=== PATIENT | female | born 1945 | race Caucasian/White ===

== ENCOUNTER → 2017-12-27 12:01 | Outpatient (CLI) | payer MEDICARE, SELFPAY ==
[2017-12-27 13:24] LABS: Erythrocyte Sedimentation Rate 14 mm/hr (0-30)
[2017-12-27 13:46] LABS: Uric Acid 8.6 mg/dL (2.6-6.0)
== END ==
PROVIDERS: Family Provider Family Medicine; PCP Family Medicine
DX: M1A.00X1 Idiopathic chronic gout, unspecified site, with tophus (tophi) (principal); M25.473 Effusion, unspecified ankle; M25.579 Pain in unspecified ankle and joints of unspecified foot; E79.0 Hyperuricemia without signs of inflammatory arthritis and tophaceous disease
CPT/HCPCS: 36415; 84550; 85652

== ENCOUNTER → 2018-05-11 11:48 | Outpatient (CLI) | payer MEDICARE, SELFPAY ==
[2016-06-16 04:09] VITALS: BMI 39.9
[2018-05-11 12:44] LABS: Erythrocyte Sedimentation Rate 31 mm/hr (0-30)
[2018-05-11 13:11] LABS: Uric Acid 6.8 mg/dL (2.6-6.0)
[2018-05-15 12:30] LABS: G6PD Quant Test 301 (146-376)
== END ==
LOC: LAB 11:54
PROVIDERS: Family Provider Family Medicine; PCP Family Medicine
DX: M10.9 Gout, unspecified (principal)
CPT/HCPCS: 36415; 82955; 84550; 85652

== ENCOUNTER 2018-09-02 09:31 | Outpatient (RCR) | payer MEDICARE, SELFPAY ==
[2016-06-16 04:09] VITALS: BMI 39.9
[2018-09-02 11:54] LABS: Uric Acid < 0.2 mg/dL (2.6-6.0)
== END 2018-09-02 10:00 | disposition home or self-care (01) ==
LOC: LAB 09:31
PROVIDERS: Family Provider Family Medicine; PCP Family Medicine
DX: M10.9 Gout, unspecified (principal)
CPT/HCPCS: 36415; 84550

== ENCOUNTER 2018-10-14 11:44 | Outpatient (RCR) | payer MEDICARE, SELFPAY ==
[2018-09-16 09:37] LABS: Uric Acid < 0.2 mg/dL (2.6-6.0)
[2018-10-01 12:43] LABS: Uric Acid < 0.2 mg/dL (2.6-6.0)
[2018-10-14 12:57] LABS: Uric Acid < 0.2 mg/dL (2.6-6.0)
== END 2018-10-16 16:00 | disposition home or self-care (01) ==
LOC: LAB 11:44
PROVIDERS: Family Provider Family Medicine; PCP Family Medicine
DX: M10.9 Gout, unspecified (principal)
CPT/HCPCS: 36415; 84550

== ENCOUNTER 2018-11-11 09:08 | Outpatient (RCR) | payer MEDICARE, SELFPAY ==
[2016-06-16 04:09] VITALS: BMI 39.9
[2018-10-28 13:11] LABS: Uric Acid < 0.2 mg/dL (2.6-6.0)
[2018-11-11 10:02] LABS: Uric Acid < 0.2 mg/dL (2.6-6.0)
== END 2018-11-11 10:00 | disposition home or self-care (01) ==
LOC: LAB 09:08
PROVIDERS: Family Provider Family Medicine; PCP Family Medicine
DX: M10.9 Gout, unspecified (principal)
CPT/HCPCS: 36415; 84550

== ENCOUNTER 2018-12-09 11:54 | Outpatient (RCR) | payer MEDICARE, SELFPAY ==
[2016-06-16 04:09] VITALS: BMI 39.9
[2018-11-25 12:42] LABS: Vitamin D,25 Hydroxy 21.2 ng/mL (29.95-100.01)
[2018-11-25 13:04] LABS: Uric Acid < 0.2 mg/dL (2.6-6.0)
[2018-12-09 13:18] LABS: Uric Acid < 0.2 mg/dL (2.6-6.0)
== END 2018-12-09 13:00 | disposition home or self-care (01) ==
LOC: LAB 11:54
PROVIDERS: Family Provider Family Medicine; PCP Family Medicine
DX: M10.9 Gout, unspecified (principal); E55.9 Vitamin D deficiency, unspecified
CPT/HCPCS: 36415; 82306; 84550

== ENCOUNTER 2019-01-06 09:41 | Outpatient (RCR) | payer MEDICARE, SELFPAY ==
[2016-06-16 04:09] VITALS: BMI 39.9
[2018-12-23 13:23] LABS: Uric Acid < 0.2 mg/dL (2.6-6.0)
[2019-01-06 10:56] LABS: Uric Acid < 0.2 mg/dL (2.6-6.0)
== END 2019-01-06 18:00 | disposition home or self-care (01) ==
LOC: LAB 09:41
PROVIDERS: Family Provider Family Medicine; PCP Family Medicine
DX: M10.9 Gout, unspecified (principal)
CPT/HCPCS: 36415; 84550

== ENCOUNTER 2019-01-20 15:06 | Outpatient (RCR) | payer MEDICARE, SELFPAY ==
[2016-06-16 04:09] VITALS: BMI 39.9
[2019-01-20 16:35] LABS: Uric Acid < 0.2 mg/dL (2.6-6.0)
== END 2019-01-20 18:00 | disposition home or self-care (01) ==
LOC: LAB 15:06
PROVIDERS: Family Provider Family Medicine; PCP Family Medicine
DX: M10.9 Gout, unspecified (principal)
CPT/HCPCS: 36415; 84550

== ENCOUNTER 2020-06-08 14:04 | Observation (INO) | payer MEDICARE, SELFPAY ==
[2020-06-08] VITALS (8 sets, daily range): BP systolic 147–188; BP diastolic 84–105; PULSE 86–123; RESP 14–24; TEMP 36.6–37.1; O2SAT 97–98; BMI 36.1; BMI 38.2; BMI 38.3
--- NOTE | 2020-06-08 14:23 | CT_ITS ---
STUDY: CT BRAIN WITHOUT CONTRAST REASON FOR EXAM: Female, 75 years old. Dizziness RADIATION DOSAGE (If Supplied By Facility): CTDIvol = ( 38.43 ) mGy, DLP = ( 741.51 ) mGycm TECHNIQUE: Transaxial CT imaging of the brain was performed without administration of intravenous contrast material. Individualized dose optimization techniques were used for this CT. COMPARISON: None. FINDINGS: There is no acute bleed or infarct. There are chronic ischemic and atrophic changes. The ventricles are normal in configuration. There is no hydrocephalus. There is opacification of the right maxillary sinus. The visualized paranasal sinuses are otherwise clear. The mastoid air cells are well aerated. There is no skull fracture. CT/Brain/Head without Contrast IMPRESSION: No acute intracranial abnormality. Chronic ischemic and atrophic changes. Opacification of the right maxillary sinus. Electronically Signed: Tyler Kraus MD at 15:15 EDT Tel , Service support ,
--- NOTE | 2020-06-08 14:23 | EKG12_ITS ---
Test Reason : DIZZINESS Blood Pressure : / mmHG Vent. Rate : 107 BPM Atrial Rate : 107 BPM P-R Int : 160 ms QRS Dur : 058 ms QT Int : 338 ms P-R-T Axes : 037 -09 074 degrees QTc Int : 451 ms Sinus tachycardia Septal infarct , age undetermined Abnormal ECG Confirmed by MICHELE LOYOLA, ROYA ([id number]), movie editor KATIE SOLIS ([id number]) on 06/09/2020 1:55:10 PM Referred By: Confirmed By:ROYA BAUTISTA MD
--- NOTE | 2020-06-08 14:24 | ED.DCSUM_ITS ---
- ER Visit Summary Date of Service: 06/08/20 Chief Complaint: Lightheadedness History of Present Illness: The patient is a 75 F presenting with lightheadedness. Patient states this started 2 days ago. She denies syncope. Denies vertigo. States she has had a mild headache. She denies recent fall. She denies chest pain or shortness of breath. She went to urgent care today and had elevated blood sugar and elevated heart rate. She was sent to the ED for further evaluation. She states she had a negative Covid test 2 weeks ago. She has not received her Covid vaccine. Denies other complaints. Physical Examination: Vitals are stable. Patient is afebrile. Alert no acute distress. HEENT exam is unremarkable. Neck is supple. Lungs are clear and equal bilaterally. Heart is regular rate and rhythm. Abdomen is soft nontender nondistended. Extremities are unremarkable. Skin is warm and dry. No focal neurologic deficit. NIH 0 Remainder of exam is unremarkable. Emergency Department Course and Treatment: EKG shows sinus tachycardia rate of 107 with no acute ischemic changes. CBC shows white count 11.8. Chemistries show glucose 274, BUN 22, creatinine 1.58. Troponin 0.046. D-dimer 0.52. Chest x-ray read by myself and radiology shows no acute process. CTA chest was obtained due to elevated D-dimer and shows nondiagnostic evaluation for pulmonary embolus as the contrast bolus is primarily within the aorta. No thoracic aortic aneurysm or dissection. Clear lungs. Coronary artery disease. CT head shows no acute process. Orthostatic vitals negative. On reevaluation, patient is resting comfortably. Discussed with hospitalist for observation. Disposition: Observation Impression: Near syncope This note was generated with [employer] dictation software. It may contain incorrect words, spelling, and punctuation that were not noted in review of the chart prior to signing ED Disposition - Plan for ED Patient: Referrals: Saida Leal DO [Primary Care Provider] -
[2020-06-08 14:39] LABS: Absolute Lymphocyte Count 1.51 X10^3/uL (0.83-4.51); Absolute Neutrophil Count 9.6 X10^3/uL (2.0-7.7); Basophil# 0.05 X10^3/uL; Basophil% 0.4 % (0-1); Eosinophil# 0.17 X10^3/uL; Eosinophils% 1.4 % (0-5); Hematocrit 41.6 % (37-47); Hemoglobin 13.3 g/dL (12.0-15.0); Lymphocyte # 1.51 X10^3/ul (4.0); Lymphocyte % 12.8 % (19-41); Mean Corpuscular Hgb 30.2 pg (27.0-32.0); Mean Corpuscular Volume 94.3 fL (81-99); Mean Platelet Vol. 9.9 fl (6.2-12.0); Monocyte# 0.49 X10^3/uL; Monocyte% 4.1 % (0-10); NRBC Flagged by Analyzer 0 % (0-5); Neutrophil # 9.57 X10^3/uL (2.7-7.7); Neutrophil % 80.9 % (47-70); Platelet Count 224 K/mm3 (150-450); RBC Distribution Width CV 12.7 % (11.6-14.6); RBC Distribution Width SD 43.8 fl (35.1-43.9); Red Blood Count 4.41 M/mm3 (4.2-5.4); White Blood Count 11.8 K/mm3 (4.4-11.0)
[2020-06-08 15:01] LABS: AST(SGOT) 27 U/L (15-37); Alanine Aminotransfer ALT/SGPT 40 U/L (13-56); Albumin, Serum 3.6 g/dL (3.2-5.0); Alkaline Phosphatase 82 U/L (45-117); Anion Gap 11 (5-15); BUN 22 mg/dL (7-18); BUN/Creat Ratio 13.9 RATIO (10-20); Calcium,Total 10.4 mg/dL (8.5-10.1); Chloride 103 mmol/L (98-107); Creatinine, Serum 1.58 mg/dL (0.55-1.02); EST Glomerular Filtration Rate 34 mL/min (>60); Est Glom Filt Rate - Afr Amer 41 mL/min (>60); Estimated Creatinine Clearance 25.08 ml/min; Globulin 3.7 g/dL (2.2-4.2); Glucose 274 mg/dL (74-106); Potassium 4.2 mmol/L (3.5-5.1); Protein, Total 7.3 g/dL (6.4-8.2); Sodium Level 139 mmol/L (136-145)
[2020-06-08 15:04] LABS: D-Dimer Quantitative (DVT/PE) 0.52 FEU/ug/m (0.27-0.49)
--- NOTE | 2020-06-08 15:05 | RAD_ITS ---
STUDY: X-RAY CHEST REASON FOR EXAM: Female, 75 years old. Shortness of breath TECHNIQUE: Frontal view of the chest COMPARISON: None. FINDINGS: There is elevation of the right hemidiaphragm. The lungs are clear. There are no pleural effusions. There is no pneumothorax. The heart is normal in size. The visualized osseous structures are within normal limits. RAD/Chest 1 View (Portable) IMPRESSION: No acute thoracic pathology. Electronically Signed: Tyler Kraus MD at 15:20 EDT Tel , Service support ,
--- NOTE | 2020-06-08 15:07 | CT_ITS ---
STUDY: CTA CHEST REASON FOR EXAM: Female, 75 years old. elevated d dimer RADIATION DOSAGE (If Supplied By Facility): CTDIvol = ( 12.66 ) mGy, DLP = ( 489.49 ) mGycm TECHNIQUE: The examination was performed with the intravenous administration of IV 100mL Isovue-370. Post-processing of the angiographic images was performed, with multiplanar reformation and 3D reconstruction. Individualized dose optimization techniques were used for this CT. COMPARISON: None. FINDINGS: Evaluation for pulmonary embolus is nondiagnostic of the contrast bolus is primarily within the aorta. There is no thoracic aortic aneurysm or dissection. There are no pulmonary infiltrates or pleural effusions. There is no pneumothorax. The heart and pericardium are within normal limits. There are coronary artery calcifications noted. There is no thoracic lymphadenopathy. Images through the upper abdomen demonstrate cholecystectomy clips. There are no destructive osseous lesions. CT/CTA Chest W/WO Contrast IMPRESSION: Nondiagnostic evaluation for pulmonary embolus as the contrast bolus is primarily within the aorta. No thoracic aortic aneurysm or dissection. Clear lungs. Coronary artery disease. Electronically Signed: Tyler Kraus MD at 15:52 EDT Tel , Service support ,
--- NOTE | 2020-06-08 17:09 | PCM.HP.STD ---
<Yifan Oshea - Last Filed: 06/08/20 17:52> Problem List (1) Headache Status: Acute (2) Lightheadedness Status: Acute (3) Dizziness Status: Acute History of Present Illness Date of Admission: 06/08/20 Chief Complaint: Headhache, Lightheadness, Dizziness Mrs. Urban is a 75-year-old female who presented to the emergency department at [facility] for a 2-day history of headache, lightheadedness and dizziness. Patient reports that only precipitant to her symptoms seem to be a positional change from flat to standing. Patient denies recent sickness or vaccination. Patient denies chest pain, shortness of breath, syncope, confusion, weakness, numbness, vision changes, fall. Orthostatic vitals in the ED were negative. Of note D-dimer was elevated in the emergency department. CT?A of the chest demonstrated no pulmonary embolus or evidence of aortic dissection. Brain CT demonstrated no evidence of acute ischemia or hemorrhage. Mild leukocytosis at 11.8. Glucose 274. Creatinine elevated at 1.58. First troponin elevated at 0.046. EKG shows sinus tachycardia at a rate of 107 with no acute ischemic changes. Patient to be admitted for near syncope. Past Medical History Allergies No Known Allergies Allergy (Verified 06/08/20 14:11) Home Medications: Ambulatory Orders Medication Instructions Recorded Fluoxetine [Prozac] 10 mg PO DAILY 06/16/16 metFORMIN HCl [Glucophage] 1,000 mg PO BIDCM 06/16/16 Acetaminophen [Tylenol Arthritis] 1,300 mg PO DAILY PRN 06/08/20 Allopurinol 300 mg PO DAILY 06/08/20 Lisinopril [Zestril] 20 mg PO DAILY 06/08/20 Lives: Spouse/ Significant Other Smoking Status: Never smoker Tobacco Use: Non-smoker - *Family History Maternal History Items: No pertinent history, - Paternal History Items: Unknown Review of Systems Constitutional: Denies: Chills, Fever, Weight Change HEENT: Denies: Head Aches, Sinus Congestion, Sinus Drainage Cardiovascular: Denies: Chest Pain, Palpitations Respiratory: Denies: Cough, Shortness of breath at rest, Sputum production Gastrointestinal: Denies: Abdominal Pain, Nausea, Vomiting Genitourinary: Denies: Dysuria Musculoskeletal: Reports: Arm Pain Skin: Denies: Rash, Wounds Neurological: Reports: Headaches, - - Lightheadedness, dizziness Psychiatric: Denies: Anxiety, Depression, Homicidal Ideations, Suicidal Ideations Hematologic/ Lymphatic: Denies: Easy Bruising, Easy Bleeding VTE Information - Inpt Only VTE Present on Admission: No Subjective: This patient is a 75-year-old female who is resting comfortably in bed, alert and oriented x3. See HPI for complaints. Objective: Impressions Brain CT 06/08/20 14:23 IMPRESSION: No acute intracranial abnormality. Chronic ischemic and atrophic changes. Opacification of the right maxillary sinus. Electronically Signed: Tyler Kraus MD at 15:15 EDT Tel , Service support , Chest X-Ray 06/08/20 15:05 IMPRESSION: No acute thoracic pathology. Electronically Signed: Tyler Kraus MD at 15:20 EDT Tel , Service support , Chest CTA 06/08/20 15:07 IMPRESSION: Nondiagnostic evaluation for pulmonary embolus as the contrast bolus is primarily within the aorta. No thoracic aortic aneurysm or dissection. Clear lungs. Coronary artery disease. Electronically Signed: Tyler Kraus MD at 15:52 EDT Tel , Service support , 06/08/20 14:23 Brain/Head without Contrast [CT] Stat 06/08/20 15:05 Chest 1 View (Portable) [RAD] Stat 06/08/20 15:07 CTA Chest W/WO Contrast [CT] Stat Laboratory Results 06/08/20 06/08/20 06/08/20 14:30 14:30 14:30 WBC 11.8 H RBC 4.41 Hgb 13.3 Hct 41.6 MCV 94.3 MCH 30.2 MCHC 32.0 RDW Std Deviation 43.8 RDW Coeff of Ford 12.7 Plt Count 224 MPV 9.9 Immature Gran % (Auto) 0.400 Neut % (Auto) 80.9 H Lymph % (Auto) 12.8 L [place] % (Auto) 4.1 Eos % (Auto) 1.4 Baso % (Auto) 0.4 Absolute Neuts (auto) 9.6 H Absolute Lymphs (auto) 1.51 Nucleated RBC % 0 D-Dimer Quant (PE/DVT) 0.52 H* Sodium 139 Potassium 4.2 Chloride 103 Carbon Dioxide 25.0 Anion Gap 11 BUN 22 H Creatinine 1.58 H Estim Creat Clear Calc 25.08 Est GFR (MDRD) Af Amer 41 L Est GFR (MDRD) Non-Af 34 L BUN/Creatinine Ratio 13.9 Glucose 274 H Calcium 10.4 H Total Bilirubin 0.30 AST 27 ALT 40 Alkaline Phosphatase 82 Troponin I 0.046 H Total Protein 7.3 Albumin 3.6 Globulin 3.7 Albumin/Globulin Ratio 1.0 - Physical Exam Vitals/I&O's: Vital Signs Temp Pulse Resp BP Pulse Ox 98.0 F 90 20 H 177/105 H 98 06/08/20 16:52 06/08/20 16:52 06/08/20 16:52 06/08/20 16:52 06/08/20 16:52 Oxygen Delivery Method Room Air Weight: 197 lb 5.019 oz Body Mass Index (BMI) 36.1 Intake and Output for Last 24 Hours 06/06/20 06/07/20 06/08/20 23:59 23:59 23:59 Intake Total 1000 / 1000 Balance 1000 / 1000 General: Alert, Oriented x3, Cooperative HEENT: Atraumatic, PERRLA, EOMI, Normocephalic Neck: Supple, No JVD, Negative Carotid Bruits Lungs: Clear to auscultation, Normal air movement Cardiovascular: Regular rate, No murmurs Abdomen: Bowel Sounds Present, Soft, Non Tender Extremities: No edema, Capillary Refill Less than 3 Seconds Skin: No rashes, No breakdown Musculoskeletal: No Tenderness to Palpation of Joints or Extremities Neurological: Cranial nerves II-XII grossly intact Psych/Mental Status: Normal Affect, Appropriate Laboratory Results 06/08/20 14:30: WBC 11.8 H, RBC 4.41, Hgb 13.3, Hct 41.6, MCV 94.3, MCH 30.2, MCHC 32.0, RDW Std Deviation 43.8, RDW Coeff of Ford 12.7, Plt Count 224, MPV 9.9, Immature Gran % (Auto) 0.400, Neut % (Auto) 80.9 H, Lymph % (Auto) 12.8 L, [place] % (Auto) 4.1, Eos % (Auto) 1.4, Baso % (Auto) 0.4, Absolute Neuts (auto) 9.6 H, Absolute Lymphs (auto) 1.51, Nucleated RBC % 0 06/08/20 14:30: Sodium 139, Potassium 4.2, Chloride 103, Carbon Dioxide 25.0, Anion Gap 11, BUN 22 H, Creatinine 1.58 H, Estim Creat Clear Calc 25.08, Est GFR (MDRD) Af Amer 41 L, Est GFR (MDRD) Non-Af 34 L, BUN/Creatinine Ratio 13.9, Glucose 274 H, Calcium 10.4 H, Total Bilirubin 0.30, AST 27, ALT 40, Alkaline Phosphatase 82, Troponin I 0.046 H, Total Protein 7.3, Albumin 3.6, Globulin 3.7, Albumin/Globulin Ratio 1.0 06/08/20 14:30: D-Dimer Quant (PE/DVT) 0.52 H* Assessment/Plan All Active Problems Headache (Acute) Lightheadedness (Acute) Dizziness (Acute) Patient is a 75-year-old female who presents to the ED with a chief complaint of headache, lightheadedness, dizziness. Patient reports a 2-day history of the symptoms and the only precipitant she can identify is when she changes position from a lot from lying flat to standing. Patient denies syncope, vertigo, recent fall, vision changes, numbness, tingling, chest pain, shortness of breath, palpitations. Of note in the ED patient's EKG demonstrated sinus tach at 107 with no ischemic changes, CBC showed a mild leukocytosis at 11.8, troponins were elevated at 0.046, D-dimer was elevated at 0.52. CT of the head showed no evidence of acute ischemia or infarction. CT?A of the chest demonstrated no evidence of pulmonary embolus or aortic dissection. My physical examination was unremarkable for any focal neuro deficits, carotid bruits, NIH stroke scale in the ED was 0. <Yovanny Cruz - Last Filed: 06/08/20 18:16> History of Present Illness The patient is a 75 year old F with history of hypertension and diabetes but no coronary artery disease/peripheral artery disease or stroke came to ER with dizziness, lightheadedness and mild headache for last 2 days. Patient also feels wobbly sometimes on walking but has not fallen or near fall situation. Denies chest pain, shortness of breath, syncope, confusion. Orthostatic vitals in ER negative. Twelve-lead EKG shows sinus tach 107 bpm QTc interval 450 ms. First troponin mildly elevated. BUN/creatinine 22/1.58. Patient feels dehydrated and thirsty. D-dimer elevated 0.52. CT angiogram negative for PE. CT brain, CTA chest and chest x-ray did not show acute change. [] Past Medical History Allergies No Known Allergies Allergy (Verified 06/08/20 14:11) Review of Systems Cardiovascular: Denies: Claudication Respiratory: Denies: Shortness of Breath, Shortness of breath upon exertion Neurological: Reports: Balance problems, Headaches, Incoordination. Denies: Blurred vision, Double vision, Change in Speech, Slurred speech, Confusion, Difficulty swallowing VTE Information - Inpt Only VTE Pharm Prophylaxis ordered?: Yes Objective: Physical exam General: Alert, Oriented x3, Cooperative HEENT: Atraumatic, PERRLA, EOMI, Normocephalic Oral: No Gingival or Mucosal Lesions/ Ulcerations Neck: Supple, No JVD, Negative Carotid Bruits Lungs: Air entry diminished in bilateral lung bases. No crepitation/rhonchi Cardiovascular: Regular rate, Regular Rhythm, Normal S1, Normal S2, ejection systolic murmur, grade 4/6 with radiation to carotids, at right second ICS Abdomen: Bowel Sounds Present, Soft, Non Tender, Non-Distended : No renal angle tenderness. No suprapubic tenderness. Extremities: Mild bilateral ankle edema, Capillary Refill Less than 3 Seconds Skin: No rashes, No breakdown Musculoskeletal: No Tenderness to Palpation of Joints or Extremities Neurological: Finger-nose test and heel bellamy test are negative. Cranial nerves II-XII grossly intact, Deep Tendon Reflexes 2+/4 and Symmetrical, Neuro grossly intact Psych/Mental Status: Normal Affect, Appropriate. - Physical Exam Vitals/I&O's: Vital Signs Temp Pulse Resp BP Pulse Ox 98.1 F 90 18 162/87 H 98 06/08/20 17:38 06/08/20 17:38 06/08/20 17:38 06/08/20 17:38 06/08/20 17:38 Oxygen Delivery Method Room Air Weight: 209 lb 4.8 oz Body Mass Index (BMI) 38.2 Intake and Output for Last 24 Hours 06/06/20 06/07/20 06/08/20 23:59 23:59 23:59 Intake Total 1000 / 1000 Balance 1000 / 1000 Laboratory Results 06/08/20 14:30: WBC 11.8 H, RBC 4.41, Hgb 13.3, Hct 41.6, MCV 94.3, MCH 30.2, MCHC 32.0, RDW Std Deviation 43.8, RDW Coeff of Ford 12.7, Plt Count 224, MPV 9.9, Immature Gran % (Auto) 0.400, Neut % (Auto) 80.9 H, Lymph % (Auto) 12.8 L, [place] % (Auto) 4.1, Eos % (Auto) 1.4, Baso % (Auto) 0.4, Absolute Neuts (auto) 9.6 H, Absolute Lymphs (auto) 1.51, Nucleated RBC % 0 06/08/20 14:30: Sodium 139, Potassium 4.2, Chloride 103, Carbon Dioxide 25.0, Anion Gap 11, BUN 22 H, Creatinine 1.58 H, Estim Creat Clear Calc 25.08, Est GFR (MDRD) Af Amer 41 L, Est GFR (MDRD) Non-Af 34 L, BUN/Creatinine Ratio 13.9, Glucose 274 H, Calcium 10.4 H, Total Bilirubin 0.30, AST 27, ALT 40, Alkaline Phosphatase 82, Troponin I 0.046 H, Total Protein 7.3, Albumin 3.6, Globulin 3.7, Albumin/Globulin Ratio 1.0 06/08/20 14:30: D-Dimer Quant (PE/DVT) 0.52 H* 06/08/20 14:30: Magnesium Pending Current Medications Acetaminophen (Acetaminophen 325 Mg Tablet) 650 mg PO Q6H PRN PRN PRN Reason: Pain Score 1-10/Temp > 100.7 F Allopurinol (Allopurinol 300 Mg Tablet) [facility] Enoxaparin Sodium (Enoxaparin 30 Mg/0.3 Ml Syringe) 30 mg SC DAILY [facility] Fluoxetine HCl (Fluoxetine 10 Mg Capsule) 10 mg PO DAILY [facility] Lactated Ringer's () 1,000 mls @ 100 mls/hr IV .Q10H JASON Stop: 06/09/20 03:49 Lisinopril (Lisinopril 20 Mg Tablet) 20 mg PO DAILY [facility] Melatonin (Melatonin 3 Mg Tablet) 3 mg PO QHS PRN PRN PRN Reason: INSOMNIA Morphine Sulfate (Morphine 2 Mg/Ml Syringe) 2 mg IV Q3H PRN PRN PRN Reason: Pain Score 6-10 Ondansetron HCl (Ondansetron 4 Mg/2 Ml Vial) 4 mg IV Q8H PRN PRN PRN Reason: NAUSEA/VOMITING Oxycodone HCl (Oxycodone 5 Mg Tablet) 5 mg PO Q4H PRN PRN PRN Reason: Pain Score 4-5 Senna/Docusate Sodium (Senna/Docusate Sodium 1 Tablet) 2 tablet PO BID PRN PRN PRN Reason: Constipation Assessment/Plan This patient was seen in conjunction with YOUSIF Hill. I have independently interviewed and examined the patient and reviewed pertinent history, examination findings, laboratory and plan of management. I have reviewed the note and agree with the documented findings with the few additional points. In brief, patient is admitted for dizziness, lightheadedness for more than 2 days. Patient is being admitted in PCU. Patient also has gait incoordination therefore MRI brain ordered. If MRI brain suggestive of stroke will need further full stroke work-up including 2D echo and MRA head and neck. Patient already had CT angiogram of the chest. IV fluid normal saline at 75 mils an hour for 1 L and then reevaluate. Orthostatic blood pressure negative. BUN/creatinine elevated. BUN 22, creatinine 1.58. Last creatinine was 1.05 in May 2016 therefore unclear whether it is acute kidney injury or CKD. Monitor kidney function, electrolytes, intake and output. Patient states her urine output is more but denies burning micturition increased frequency or urgency. UA and urine culture are ordered. Mild leukocytosis. Other comorbidities include hypertension, diabetes mellitus type 2. Hold Metformin and lisinopril. Continue allopurinol. VTE prophylaxis: Lovenox 30 minutes of daily. I have discussed my assessment with YOUSIF Hill and orders have been reviewed. Living will/advanced directive/end of life care: Patient does have living will or advanced directive. Her is power of commonwealth attorney for health. After discussion of benefits/risks procedures involved with full code, DNR CC arrest and DNR CC, the patient is not sure what mentioned in the living will but wants one trial of full resuscitation in case of cardiopulmonary arrest or terminal condition. Risk and benefit of full resuscitation including CPR and DC shock discussed with the patient and she was made aware that she can change her mind or decision at any point of time and convert to DNRCC arrest. Patient does not want artificial life support including intubation, tube feed, ventilator and/chest compression, central venous catheter, vasopressor and DC shock if needed Total time spent in [id number] encounter in discussion of advanced directive 16 minutes. OBSV E&M: 07597 Initial observation care L3 Procedures: 74584 Advncd Care Plan 30 Min
--- NOTE | 2020-06-08 18:25 | MRI_ITS ---
STUDY: MRI BRAIN WITHOUT CONTRAST REASON FOR EXAM: Female, 75 years old. rule out stroke TECHNIQUE: Standardized multiplanar fat and water weighted pulse sequences were obtained. COMPARISON: CT head 06/08/2020. FINDINGS: No intracranial mass, mass effect, or midline shift. No hemorrhage, territorial infarct or acute ischemia. There is mild cerebral atrophy with widening of the extra-axial spaces and ventricular dilatation. There are a limited number of small white matter hyperintensities, distributed throughout the deep white matter tracts of the cerebral hemispheres, consistent with mild chronic white matter ischemic changes. Normal bilateral basal ganglia. Normal thalami. There is no extra-axial fluid accumulation. Normal flow voids within the major intracranial circulation suggesting patency by spin echo criteria. Normal sella turcica, pituitary gland, infundibular stalk, optic chiasm and hypothalamus. Normal tectal plate and pineal gland. There are chronic white matter ischemic changes of the [place]. The midbrain and medulla are otherwise normal. Normal cerebellum. Normal basal cisterns. Normal bilateral temporal bones. Normal bilateral internal auditory canals. Marked mucosal thickening in the right maxillary sinus. Normal calvarium and skull base. Normal visualized soft tissue structures. MRI/Brain without Contrast IMPRESSION: 1. No acute findings. 2. Mild chronic microvascular ischemic changes. Mild atrophy. 3. Chronic sinusitis. Electronically Signed: Chanelle Vicente MD at 21:59 EDT Tel , Service support ,
[2020-06-08 18:26] LABS: Magnesium 1.4 mg/dL (1.6-2.6)
[2020-06-08 18:51] LABS: Bedside Glucose 125 mg/dL (70-110)
[2020-06-08 19:00] LABS: Mucous, Urine 0 SEEN /hpf (<or=2+)
[2020-06-08 19:03] LABS: Color, Urine Yellow (Yellow); Glucose, Dipstick Normal (Normal); Ketone-Dipstick Negative (Negative); Leukocyte Esterase-Dipstick 500 /ul (Negative); Nitrite-Dipstick Negative (Negative); Occult Blood-Urine 25 /ul (Negative); Protein-Dipstick 100 mg/dl (Negative); Specific Gravity, Urine 1.015 (1.002-1.030); Urine Bilirubin Dipstick Negative (Negative); Urine Clarity Clear (Clear); Urine Urobilinogen Normal (Normal)
--- NOTE | 2020-06-08 19:10 | NURSING ---
Pt was off the floor for testing on initial rounds was unable to
[2020-06-08 19:12] LABS: Bacteria 2+ /hpf (None Seen); Red Blood Cells-Urine 0-5 SEEN /hpf (0-5); Squamous Epithelial Cells - UA 0-5 SEEN /hpf (5-10); White Blood Cells 10-25 SEEN /hpf (0-5)
--- NOTE | 2020-06-08 20:24 | NURSING ---
This patient was off the floor for testing during initial rounds was unable to complete NIH until returned from testing. Pt scored 0 once assessment was completed.
[2020-06-08] MEDS: Enoxaparin 30 MG/0.3 ML Syringe SC (20:26)
[2020-06-08] MEDS: 0.9% Normal Saline 1,000 ML 75 ML IV (20:27)
[2020-06-08 22:00] LABS: Bedside Glucose 171 mg/dL (70-110)
--- NOTE | 2020-06-08 23:49 | ECHOCS_ITS ---
Reason For Study: Chest Pain Procedure This was a 2D Doppler, Color Flow transthoracic echocardiogram. Contrast injection was performed. Exam performed portable in patient room. Left Ventricle Normal LV size. Mild concentric left ventricular hypertrophy. Left ventricular systolic function is normal. The estimated ejection fraction is 65 %. Stage 1 diastolic dysfunction. No regional wall motion abnormalities noted. Right Ventricle Normal RV size. Normal systolic function. Atria Normal left atrium. Normal right atrium. Mitral Valve Mild focal mitral valve calcification. There is mild mitral annular calcification. Tricuspid Valve Normal tricuspid valve. Aortic Valve Trisinus/trileaflet aortic valve. Mild focal aortic valve calcification. Peak aortic valve gradient 28 mmHg. Mean aortic valve gradient 14 mmHg. Mild aortic stenosis. Pulmonic Valve Normal pulmonic valve. Great Vessels Normal aortic root. The pulmonary artery is normal size. Normal inferior vena cava. Pericardium/Pleural No pericardial effusion. Medication Diluted definity 2ml given slow IV push to enhance endocardial definition. MMode/2D Measurements & Calculations LVIDd: 4.5 cm IVSd: 1.4 cm LVOT diam: 2.0 cm LVIDs: 2.0 cm LVPWd: 1.2 cm RVDd: 3.3 cm FS: 56.2 % LVOT area: 3.0 cm2 Ao root diam: 3.2 cm LAV(MOD-bp): 57.1 ml LVAd ap4: 27.2 cm2 LAV(MOD-bp) Indexed: 29.3 ml/m2 EDV(MOD-sp4): 78.0 ml LAV(MOD-sp2): 46.3 ml EDV(sp4-el): 81.2 ml LAV(MOD-sp4): 59.2 ml LVAs ap4: 13.3 cm2 ESV(MOD-sp4): 23.8 ml ESV(sp4-el): 23.9 ml EF(MOD-sp4): 69.5 % EF(sp4-el): 70.6 % SV(MOD-sp4): 54.2 ml SV(sp4-el): 57.3 ml LA A4 area: 20.4 cm2 LA dimension(2D): 4.2 cm RA A4 area: 8.4 cm2 Time Measurements MV dec time: 0.31 sec Doppler Measurements & Calculations MV E max isaias: 118.0 cm/sec Lat Peak E' Isaias: 8.9 cm/sec Med Peak E' Isaias: 5.3 cm/sec MV A max iasias: 137.6 cm/sec E/E' lat: 13.2 E/E' med: 22.3 MV E/A: 0.86 MV V2 max: 137.5 cm/sec MV P1/2t max isaias: 133.2 cm/sec Ao V2 max: 263.0 cm/sec MV max P.6 mmHg MV P1/2t: 91.5 msec Ao max P.7 mmHg MV V2 mean: 97.4 cm/sec MV dec slope: 426.2 cm/sec2 Ao V2 mean: 178.5 cm/sec MV mean P.1 mmHg MVA(P1/2t): 2.4 cm2 Ao mean P.4 mmHg MV V2 VTI: 39.9 cm Ao V2 VTI: 50.2 cm MVA(VTI): 2.1 cm2 LUANN(I,D): 1.7 cm2 LUANN(V,D): 1.5 cm2 LV V1 max: 129.6 cm/sec SV(LVOT): 83.6 ml PA V2 max: 93.2 cm/sec LV V1 max P.7 mmHg LV V1 mean P.2 mmHg LV V1 mean: 98.1 cm/sec LV V1 VTI: 27.4 cm Interpretation Summary Normal LV size. Mild concentric left ventricular hypertrophy. Left ventricular systolic function is normal. The estimated ejection fraction is 65 %. Stage 1 diastolic dysfunction. Mean aortic valve gradient 14 mmHg. Ordering Physician: Amanda Almazan Referring Physician: Saida Leal Performed By: Domi Ward, WESLEY, RVT
[2020-06-09] VITALS (22 sets, daily range): BP systolic 133–222; BP diastolic 80–118; PULSE 72–100; RESP 16–20; TEMP 36.4–36.9; O2SAT 92–98; BMI 38.2
[2020-06-09] MEDS: Magnesium Sulfate 4gm/100mL 4 GM/100 ML IV.SOLN. IV (00:23)
[2020-06-09] MEDS: Enoxaparin 60 MG/0.6 ML Syringe SC (00:23)
[2020-06-09] MEDS: Aspirin 81 MG TAB.CHEW PO ×2 (00:30→10:19)
--- NOTE | 2020-06-09 01:19 | PCM.HOSP.N ---
Hospitalist Note Cardiac enzymes steadily rising, will add asa, therapeutic lovenox transition, request ECHO, supplement magnesium, request Cardiology involvement, add judicious IVFs, NPO status.
[2020-06-09 03:48] LABS: Absolute Lymphocyte Count 2.78 X10^3/uL (0.83-4.51); Basophil# 0.08 X10^3/uL; Basophil% 0.7 % (0-1); Eosinophils% 3.7 % (0-5); Hematocrit 38.1 % (37-47); Hemoglobin 12.3 g/dL (12.0-15.0); Lymphocyte # 2.78 X10^3/ul (4.0); Lymphocyte % 25.8 % (19-41); Mean Corp Hgb Conc 32.3 g/dL (32-36); Mean Corpuscular Hgb 30.4 pg (27.0-32.0); Mean Corpuscular Volume 94.3 fL (81-99); Mean Platelet Vol. 9.9 fl (6.2-12.0); Monocyte# 0.48 X10^3/uL; Monocyte% 4.5 % (0-10); NRBC Flagged by Analyzer 0 % (0-5); Neutrophil # 6.99 X10^3/uL (2.7-7.7); Platelet Count 206 K/mm3 (150-450); RBC Distribution Width SD 44.4 fl (35.1-43.9); Red Blood Count 4.04 M/mm3 (4.2-5.4); White Blood Count 10.8 K/mm3 (4.4-11.0)
[2020-06-09 03:59] LABS: Anion Gap 8 (5-15); BUN 24 mg/dL (7-18); BUN/Creat Ratio 16.7 RATIO (10-20); Calcium,Total 10.2 mg/dL (8.5-10.1); Chloride 104 mmol/L (98-107); Cholesterol 232 mg/dL (200); Creatinine, Serum 1.44 mg/dL (0.55-1.02); EST Glomerular Filtration Rate 38 mL/min (>60); Est Glom Filt Rate - Afr Amer 46 mL/min (>60); Estimated Creatinine Clearance 27.52 ml/min; Glucose 152 mg/dL (74-106); High Density Lipoprotein 45 mg/dL; Magnesium 2.3 mg/dL (1.6-2.6); Potassium 4.1 mmol/L (3.5-5.1); Sodium Level 138 mmol/L (136-145); Thyroid Stim Hormone (TSH) 2.94 uIU/mL (0.358-3.74); Triglycerides 264 mg/dL; Very Low Density Lipoprotein 53 mg/dL (5-40)
[2020-06-09] MEDS: Enoxaparin 100 MG/ML Syringe 90 MG SC (06:17)
[2020-06-09 06:46] LABS: Bedside Glucose 130 mg/dL (70-110)
--- NOTE | 2020-06-09 09:24 | CON.PCM_ITS ---
Reason for Consult Date of Consultation: 06/09/20 Reason for Consultation: Abnormal cardiac enzymes History of Present Illness: The patient is a 75 year old F with no previous cardiac history who presents with dizziness as well as a mild headache. She denies any chest pain no paroxys mal nocturnal dyspnea or pedal edema she presented to the emergency room and was noted to have normal EKG and abnormal cardiac enzymes. D-dimer was also elevated had a CT scan done which did not demonstrate any evidence of pulmonary embolism. Head CT also did not demonstrate any significant abnormalities. However due to the continued elevation of the cardiac enzymes was referred to cardiology for further evaluation and management. Denies any chest pain or shortness of breath or paroxysmal nocturnal dyspnea or pedal edema. [] Past Medical History Allergies/Adverse Reactions: Allergies No Known Allergies Allergy (Verified 06/08/20 14:11) Home Medications: Ambulatory Orders Medication Instructions Recorded Fluoxetine [Prozac] 10 mg PO DAILY 06/16/16 metFORMIN HCl [Glucophage] 1,000 mg PO BIDCM 06/16/16 Acetaminophen [Tylenol Arthritis] 1,300 mg PO DAILY PRN 06/08/20 Allopurinol 300 mg PO DAILY 06/08/20 Lisinopril [Zestril] 20 mg PO DAILY 06/08/20 Surgical History: no surgical history - *Family History Maternal History Items: No pertinent history, - Paternal History Items: Unknown Lives: Spouse/ Significant Other Smoking Status: Never smoker Tobacco Use: Non-smoker Alcohol: None Drugs: None Review of Systems - Review of Systems General: Denies: Fever, Night Sweats, Fatigue HEENT: Denies: Vision Change Cardiovascular: Reports: Lightheadedness, Dizziness. Denies: Chest Discomfort, Shortness of Breath, Orthopnea, PND, Peripheral Edema, Palpitations, Near Syncope, Syncope Respiratory: Denies: Cough, Sputum Production, Hemoptysis Gastrointestinal: Denies: Hematemesis, Hematochezia, Melena Genitourinary: Denies: Dysuria, Hematuria Skin: Denies: Rash Neurological: Reports: Dizziness Psychiatric: Denies: Anxiety Endocrine: Denies: Unexplained Weight Loss Subjectve: Pleasant lady in no distress Objective: Vital Signs Temp Pulse Resp BP Pulse Ox 97.9 F 83 16 192/105 H 95 06/09/20 06:10 06/09/20 07:00 06/09/20 06:10 06/09/20 06:10 06/09/20 06:10 Oxygen Delivery Method Room Air Weight: 209 lb 4.8 oz Body Mass Index (BMI) 38.2 Intake and Output for Last 24 Hours 06/07/20 06/08/20 06/09/20 23:59 23:59 23:59 Intake Total 1000 / 1300 400 / 400 Balance 1000 / 1300 400 / 400 General: Awake, Alert, Oriented x 3 HEENT: PERRL, EOMI, Sclera Non Icteric Neck: Supple, Good ROM, No Lymph Node Enlargement Lungs: Clear to auscultation Cardiovascular: Regular Rhythm, Normal S1, Normal S2, No Rubs, No Gallops Murmur Murmur: Grade 2/6, Early Systolic, LLSB Vascular: No Carotid Bruits, Normal Femoral Pulses, Normal Radial Pulses, Normal Dorsalis Pedal Pulse, Normal Posterior Tibial Pulses Abdomen: Bowel Sounds Present, Soft, Non Tender, No HSM, No Organomegaly Extremities: No Cyanosis, No Clubbing, No edema Musculoskeletal: No Erythema Skin: No Rashes Lymphatic: No Lymph Node Enlargement Neurological: No Focal Motor or Sensory Deficit Psych/Mental Status: Appropriate 06/08/20 14:30: WBC 11.8 H, RBC 4.41, Hgb 13.3, Hct 41.6, MCV 94.3, MCH 30.2, MCHC 32.0, Plt Count 224, MPV 9.9, Immature Gran % (Auto) 0.400, Neut % (Auto) 80.9 H, Lymph % (Auto) 12.8 L, [place] % (Auto) 4.1, Eos % (Auto) 1.4, Baso % (Auto) 0.4, Absolute Neuts (auto) 9.6 H, Nucleated RBC % 0 06/08/20 14:30: Sodium 139, Potassium 4.2, Chloride 103, Carbon Dioxide 25.0, Anion Gap 11, BUN 22 H, Creatinine 1.58 H, Est GFR (MDRD) Af Amer 41 L, Est GFR (MDRD) Non-Af 34 L, BUN/Creatinine Ratio 13.9, Glucose 274 H, Calcium 10.4 H, Total Bilirubin 0.30, Troponin I 0.046 H 06/08/20 14:30: D-Dimer Quant (PE/DVT) 0.52 H* 06/08/20 14:30: Magnesium 1.4 L 06/08/20 18:12: Troponin I 0.117 H 06/08/20 18:30: Urine Color Yellow, Urine Clarity Clear, Urine pH 5.0, Ur Specific [place] 1.015, Urine Protein 100 H, Urine Glucose (UA) Normal, Urine Ketones Negative, Urine Occult Blood 25 H, Urine Nitrite Negative, Urine Bilirubin Negative, Urine Urobilinogen Normal, Ur Leukocyte Esterase 500 H, Urine RBC 0-5 SEEN, Urine WBC 10-25 SEEN 06/08/20 20:32: Troponin I 0.138 H 06/09/20 00:30: Troponin I 0.176 H 06/09/20 03:16: WBC 10.8, RBC 4.04 L, Hgb 12.3, Hct 38.1, MCV 94.3, MCH 30.4, MCHC 32.3, Plt Count 206, MPV 9.9, Immature Gran % (Auto) 0.300, Neut % (Auto) 65.0, Lymph % (Auto) 25.8, [place] % (Auto) 4.5, Eos % (Auto) 3.7, Baso % (Auto) 0.7, Absolute Neuts (auto) 7.0, Nucleated RBC % 0 06/09/20 03:16: Sodium 138, Potassium 4.1, Chloride 104, Carbon Dioxide 26.0, Anion Gap 8, BUN 24 H, Creatinine 1.44 H, Est GFR (MDRD) Af Amer 46 L, Est GFR (MDRD) Non-Af 38 L, BUN/Creatinine Ratio 16.7, Glucose 152 H, Calcium 10.2 H, Magnesium 2.3, Triglycerides 264 H, Cholesterol 232 H, LDL Cholesterol 134 H, VLDL Cholesterol 53 H, HDL Cholesterol 45 06/09/20 03:16: Troponin I 0.162 H 06/09/20 06:12: Troponin I 0.146 H Rhythm: EKG: ECHO: Stress Test: Cardiac Cath: PCI: CT Surgery: Holter monitor: EPS: PPM: CXR: Chest CT Scan: Assessment/Plan 1. Abnormal cardiac [id number] * Patient is noted to have abnormal cardiac enzymes with nonspecific EKG changes. * She has been worked up with a CTA which demonstrated no evidence of pulmonary embolism, brain CT and MRI did not demonstrate any significant abnormalities and at this juncture it appears that the abnormal cardiac enzymes need to be worked up. The alternatives of either stress test or a cardiac catheterization need to be pursued. At this juncture after discussion with her it appears that she prefers a cardiac catheterization. The risk benefits and alternatives have been explained to her she understands and agrees to proceed. * Depending on the results further recommendations will be made. * * * * Addendum at 1:15 PM * * Cardiac catheterization demonstrated the following * Normal left main coronary artery * Left anterior descending artery with severe diffuse disease noted in the mid and distal segments and also involving the first diagonal vessel and first septal rail specialist * Mild disease noted involving the left circumflex artery in a nondominant vessel * Mild diffuse disease involving the right coronary artery and a dominant vessel * Preserved left ventricular systolic function with hyperdynamic function estimated EF 75% with mitral annular calcification and mild aortic stenosis only. * * Based on the above angiographic findings I would recommend beta-sophia with metoprolol 50 mg twice a day * Continue high intensity statin * Continue aspirin * Thank you for allowing me to participate in the care of your patient. Please don't hesitate to call if any issues arise.
--- NOTE | 2020-06-09 09:49 | CASEMGMT ---
According to the [facility] website, the following are in-network tertiary facilities: [facility], [place], [facility], [facility], [facility], [facility], and . Alem PERRY CM
[2020-06-09 11:05] LABS: Bedside Glucose 170 mg/dL (70-110)
--- NOTE | 2020-06-09 13:31 | CL.D_ITS ---
Patient Name: MARGOT GARVIN I Study Date: 06/09/2020 Performing: Tobi Jesus MD Ht: 62 inches 157 cm : 1945 Wt: 209.7 lbs 95 kg Age: 75 Gender: female BSA: 1.95 PROCEDURE(S) PERFORMED HA68-PAC/COR/LV CLINICAL PROFILE AND INDICATIONS Indications: ACS <= 24 hrs Heart Failure: None Stress/Imaging Stress/Image Study Performed: No CAD Presentations: Symptom unlikely to be ischemic. CONCLUSIONS Severe diffuse disease noted in the mid and distal LAD not amenable to PCI. Mild disease noted in th e circumflex artery and mild disease noted in the right coronary artery. Preserved ejection fraction . RECOMMENDATIONS Medical therapy DESCRIPTION OF PROCEDURE The patient arrived to the procedure lab. The risks and benefits of the procedure as well as a full d escription of our services here and current unavailability of surgical backup were fully explained to the patient and/or their significant other prior to the catheterization. The Timeout was completed, verifying the correct patient and procedure. The patient's procedural site was prepped and draped in the usual fashion. Local anesthetic was given subcutaneously to right radial region with Lidocaine 2% . Using a modified Seldinger technique, arterial access was obtained via the right radial artery, a 6 Fr sheath was inserted. Left Coronary Artery selective angiography was performed in multiple views u sing a 5 Fr. 4.0 Monroe catheter. Right Coronary Artery selective angiography was then performed in mu ltiple views using a 5 Fr. 4.0 Monroe catheter. Left Ventriculography was performed in GARCIA projection using a 5 Fr. Pigtail catheter. LV to AO pullback pressures were then recorded.The arterial sheath was pulled and a TR Band was applied for hemostasis w/ 15ml air CORONARY ANGIOGRAPHY DOMINANCE: Right Dominant LEFT HEART ASSESSMENT Left Ventricular Ejection Fraction: by LV Gram 75 % Normal LV wall motion Normal Left Ventricular systolic function LEFT MAIN: Angiographically normal LEFT ANTERIOR DESCENDING ARTERY: PROX LAD: Mild luminal irregularities less than 30% MID LAD: Diffusely diseased up to 70 % DIAGONAL 1: Proximal - Diffusely diseased up to 70 % CIRCUMFLEX ARTERY: Mild luminal irregularities RIGHT CORONARY ARTERY: Mild luminal irregularities less than 30% VALVE FINDINGS: Aortic Valve Stenosis - mild Mitral Valve Calcification Moderate COMPLICATIONS No Complications PROCEDURE MEDICATIONS Versed 1 mg IV Fentanyl 50 mcg IV Oxygen: 2 L/min via nasal cannula Heparin diluted in 23cc Heparinized saline. Patient given 10cc IA of this solution. 06/09/2020 12:55: 33 Verapamil 2.5mg, Ntg 100mcgs, 2000 units of Heparin diluted in 23cc Heparinized saline. Patient give n 10cc IA of this solution. 06/09/2020 12:55:33 SUMMARY OF HEMODYNAMIC DATA Time AIR REST ECG 12:23:39 AO 153/90 (124) SA 12:59:50 LV 147/10, 22 13:07:41 LV 145/13, 28 13:07:47 LV 166/21, 0 13:08:37 LV 183/15, 26 13:08:47 LVp 129/14, 0 13:08:56 AOp 187/107 (144) 13:09:01 Signed By Tobi Jesus MD On 06/09/2020 1:31:13 PM Tobi Jesus MD
[2020-06-09] MEDS: 0.9% Normal Saline 1,000 ML 75 ML IV (13:50)
--- NOTE | 2020-06-09 14:17 | PN_ITS ---
<Yifan Oshea - Last Filed: 06/09/20 14:17> Patient Problems: Active and Suspected Problems Headache (Acute) Lightheadedness (Acute) Dizziness (Acute) Subjective: Patient is a 75-year-old female who is resting comfortably in bed, alert and oriented x3. Patient reports resolution of her symptoms on admission to include lightheadedness, dizziness, headache. Patient denies fever, chills, N/V/D, chest pain, shortness of breath, vision changes, palpitations, numbness, tingling. Objective: Clinical Impression(s) from Imaging Studies Brain CT 06/08/20 14:23 IMPRESSION: No acute intracranial abnormality. Chronic ischemic and atrophic changes. Opacification of the right maxillary sinus. Electronically Signed: Tyler Kraus MD at 15:15 EDT Tel , Service support , Chest X-Ray 06/08/20 15:05 IMPRESSION: No acute thoracic pathology. Electronically Signed: Tyler Kraus MD at 15:20 EDT Tel , Service support , Chest CTA 06/08/20 15:07 IMPRESSION: Nondiagnostic evaluation for pulmonary embolus as the contrast bolus is primarily within the aorta. No thoracic aortic aneurysm or dissection. Clear lungs. Coronary artery disease. Electronically Signed: Tyler Kraus MD at 15:52 EDT Tel , Service support , Brain MRI 06/08/20 18:25 IMPRESSION: 1. No acute findings. 2. Mild chronic microvascular ischemic changes. Mild atrophy. 3. Chronic sinusitis. Electronically Signed: Chanelle Vicente MD at 21:59 EDT Tel , Service support , Vitals/I&O's: Vital Signs Temp Pulse Resp BP Pulse Ox 97.6 F L 86 18 187/88 H 94 06/09/20 13:55 06/09/20 14:00 06/09/20 14:00 06/09/20 14:00 06/09/20 14:00 Oxygen Delivery Method Room Air Weight: 209 lb 4.8 oz Body Mass Index (BMI) 38.2 Intake and Output for Last 24 Hours 06/07/20 06/08/20 06/09/20 23:59 23:59 23:59 Intake Total 1000 / 1300 1460 / 1460 Balance 1000 / 1300 1460 / 1460 General: Alert, Oriented x3, Cooperative HEENT: Atraumatic, PERRLA, EOMI, Normocephalic Neck: Supple, No JVD, Negative Carotid Bruits Lungs: Clear to auscultation, Normal air movement Cardiovascular: Regular rate, No murmurs Abdomen: Bowel Sounds Present, Soft, Non Tender Extremities: No edema, Capillary Refill Less than 3 Seconds Skin: No rashes, No breakdown Musculoskeletal: No Tenderness to Palpation of Joints or Extremities Neurological: Cranial nerves II-XII grossly intact Psych/Mental Status: Normal Affect, Appropriate Microbiology Past 72 Hours 06/08/20 18:30 Urine, Clean Catch Urine Culture - Preliminary Gram negative efraín Laboratory Results 06/08/20 14:30: WBC 11.8 H, RBC 4.41, Hgb 13.3, Hct 41.6, MCV 94.3, MCH 30.2, MCHC 32.0, RDW Std Deviation 43.8, RDW Coeff of Ford 12.7, Plt Count 224, MPV 9.9, Immature Gran % (Auto) 0.400, Neut % (Auto) 80.9 H, Lymph % (Auto) 12.8 L, Motley % (Auto) 4.1, Eos % (Auto) 1.4, Baso % (Auto) 0.4, Absolute Neuts (auto) 9.6 H, Absolute Lymphs (auto) 1.51, Nucleated RBC % 0 06/08/20 14:30: Sodium 139, Potassium 4.2, Chloride 103, Carbon Dioxide 25.0, Anion Gap 11, BUN 22 H, Creatinine 1.58 H, Estim Creat Clear Calc 25.08, Est GFR (MDRD) Af Amer 41 L, Est GFR (MDRD) Non-Af 34 L, BUN/Creatinine Ratio 13.9, Glucose 274 H, Calcium 10.4 H, Total Bilirubin 0.30, AST 27, ALT 40, Alkaline Phosphatase 82, Troponin I 0.046 H, Total Protein 7.3, Albumin 3.6, Globulin 3.7, Albumin/Globulin Ratio 1.0 06/08/20 14:30: D-Dimer Quant (PE/DVT) 0.52 H* 06/08/20 14:30: Magnesium 1.4 L 06/08/20 18:12: Troponin I 0.117 H 06/08/20 18:30: Urine Color Yellow, Urine Clarity Clear, Urine pH 5.0, Ur Specific Hudson 1.015, Urine Protein 100 H, Urine Glucose (UA) Normal, Urine Ketones Negative, Urine Occult Blood 25 H, Urine Nitrite Negative, Urine Bilirubin Negative, Urine Urobilinogen Normal, Ur Leukocyte Esterase 500 H, Urine RBC 0-5 SEEN, Urine WBC 10-25 SEEN, Ur Squamous Epith Cells 0-5 SEEN, Urine Bacteria 2+, Urine Mucus 0 SEEN 06/08/20 18:30: POC Glucose 125 H 06/08/20 20:32: Troponin I 0.138 H 06/08/20 21:33: POC Glucose 171 H 06/09/20 00:30: Troponin I 0.176 H 06/09/20 03:16: WBC 10.8, RBC 4.04 L, Hgb 12.3, Hct 38.1, MCV 94.3, MCH 30.4, MCHC 32.3, RDW Std Deviation 44.4 H, RDW Coeff of Ford 13.0, Plt Count 206, MPV 9.9, Immature Gran % (Auto) 0.300, Neut % (Auto) 65.0, Lymph % (Auto) 25.8, Motley % (Auto) 4.5, Eos % (Auto) 3.7, Baso % (Auto) 0.7, Absolute Neuts (auto) 7.0, Absolute Lymphs (auto) 2.78, Nucleated RBC % 0 06/09/20 03:16: Sodium 138, Potassium 4.1, Chloride 104, Carbon Dioxide 26.0, Anion Gap 8, BUN 24 H, Creatinine 1.44 H, Estim Creat Clear Calc 27.52, Est GFR (MDRD) Af Amer 46 L, Est GFR (MDRD) Non-Af 38 L, BUN/Creatinine Ratio 16.7, Glucose 152 H, Calcium 10.2 H, Magnesium 2.3, Triglycerides 264 H, Cholesterol 232 H, LDL Cholesterol 134 H, VLDL Cholesterol 53 H, HDL Cholesterol 45, TSH 2.94 06/09/20 03:16: Troponin I 0.162 H 06/09/20 06:12: Troponin I 0.146 H 06/09/20 06:15: POC Glucose 130 H 06/09/20 10:58: POC Glucose 170 H Current Medications Acetaminophen (Acetaminophen 325 Mg Tablet) 650 mg PO Q6H PRN PRN PRN Reason: Pain Score 1-10/Temp > 100.7 F Allopurinol ([facility]ol 300 Mg Tablet) [facility] Aspirin (Aspirin 81 Mg Tab.Chew) 81 mg PO DAILY@0800 [facility] Last Admin: 06/09/20 10:19 Dose: 81 mg Documented by: Atorvastatin Calcium (Atorvastatin Calcium 80 Mg Tablet) 80 mg PO QHS [facility] Fluoxetine HCl (Fluoxetine 10 Mg Capsule) 10 mg PO DAILY [facility] Hydralazine HCl (Hydralazine 20 Mg/Ml Vial) 5 mg IV Q30M PRN PRN Reason: to maintain BP goals Sodium Chloride () 1,000 mls @ 75 mls/hr IV .[id number] [facility] Last Admin: 06/09/20 13:50 Dose: 75 mls/hr Documented by: Sodium Chloride () 1,000 mls @ 15 mls/hr IV .Q48H [facility] Labetalol HCl (Labetalol (Prefilled) 20 Mg/4 Ml) 10 - 20 mg IV Q10M PRN PRN PRN Reason: to Maintain BP Goals Melatonin (Melatonin 3 Mg Tablet) 3 mg PO QHS PRN PRN PRN Reason: INSOMNIA Metoprolol Tartrate (Metoprolol Tartrate 50 Mg Tablet) 50 mg PO BID [facility] Morphine Sulfate (Morphine 2 Mg/Ml Syringe) 2 mg IV Q3H PRN PRN PRN Reason: Pain Score 6-10 Ondansetron HCl (Ondansetron 4 Mg/2 Ml Vial) 4 mg IV Q8H PRN PRN PRN Reason: NAUSEA/VOMITING Oxycodone HCl (Oxycodone 5 Mg Tablet) 5 mg PO Q4H PRN PRN PRN Reason: Pain Score 4-5 Senna/Docusate Sodium (Senna/Docusate Sodium 1 Tablet) 2 tablet PO BID PRN PRN PRN Reason: Constipation STROKE Vital Signs/Narrative: Vital Signs Temp Pulse Resp BP Pulse Ox 06/09/20 14:00 86 18 187/88 H 94 06/09/20 13:55 97.6 F L 87 18 184/88 H 95 06/09/20 13:45 97.6 F L 86 18 184/88 H 95 06/09/20 11:00 82 Medical Necessity - Tobacco Use Smoking Status: Never smoker Tobacco Use: Non-smoker Assessment/Plan All Active Problems Headache (Acute) Lightheadedness (Acute) Dizziness (Acute) Patient is a 75-year-old female who presents to the ED with a chief complaint of headache, lightheadedness, dizziness. Patient was admitted for stroke like symptoms, mild leukocytosis at 11.8, elevated troponins at 0.046, and elevated D-dimer at 0.52. CT?A completed in the ED confirmed no PE or aortic dissection. Brain CT and MRI demonstrated no evidence of acute ischemia or infarction. Given the elevated troponins and unremarkable work-up otherwise, cardiology agreed to perform a cardiac catheterization on the patient. Cardiac catheterization was significant for severe diffuse disease in the mild and distal LAD, mild disease of the circumflex artery and the right coronary artery. Ejection fraction preserved. Cardiology would like to pursue medical management. Patient remained admitted overnight for observation during initiation of Lopressor. 1) Abnormal cardiac enzymes Assessment - Elevated troponin throughout cycle. - Severe diffuse disease in the middle and distal LAD, as well as mild disease of the circumflex and right coronary artery - Patient blood pressure managed on lisinopril prior to discharge -EF of 75% Plan - Initiate aided on Lopressor 50 mg p.o. twice daily per cardiology - Remain admitted overnight for observation - Initiate guideline directed medical therapy upon discharge - Anticipate discharge tomorrow 2) Stroke like symptoms Assessment - No evidence of acute ischemia or infarction on brain CT or MRI - NIHSS 0 Plan - Resolved DVT prophylaxis - Lovenox SC Patient seen by Yifan Oshea PA-C, under the supervision of Dr. Parra <Coby Parra - Last Filed: 06/09/20 16:07> Subjective: Agree with the above and the following is representation my independent history and physical examination Patient states she is no longer had any lightheadedness symptoms since arrival. She states overall she is feeling pretty well and is waiting for her cath. Vitals/I&O's: Vital Signs Temp Pulse Resp BP Pulse Ox 98.1 F 77 18 196/90 H 92 06/09/20 15:00 06/09/20 15:41 06/09/20 15:30 06/09/20 15:41 06/09/20 15:30 Oxygen Delivery Method Room Air Weight: 94.937 kg Body Mass Index (BMI) 38.2 Intake and Output for Last 24 Hours 06/07/20 06/08/20 06/09/20 23:59 23:59 23:59 Intake Total 1000 / 1300 1460 / 1460 Balance 1000 / 1300 1460 / 1460 General: Alert, Oriented x3, Cooperative, No apparent distress, Well developed, Well nourished HEENT: Atraumatic, PERRLA, EOMI, Normocephalic, EAC Clear Oral: Moist Mucosa, No Gingival or Mucosal Lesions/ Ulcerations, - - She was in place, Mallampati 3 Neck: Supple, No JVD, Negative Carotid Bruits, Negative Hepatojugular Reflux, No Nodes, Trachea Midline, Thyroid Normal Size and Texture Lungs: Clear to auscultation, Normal air movement, No rhonchi, No wheeze, No rales Cardiovascular: Regular rate, Regular Rhythm, Normal S1, Normal S2, No Ectopic Activity, Murmur - 3 out of 6 systolic murmur loudest at right upper sternal border, No rub noted, No Gallop Abdomen: Bowel Sounds Present, Soft, Non Tender, Non-Distended, Obese Extremities: No clubbing, No cyanosis, No edema, Capillary Refill Less than 3 Seconds, Peripheral Pulses Normal Skin: No rashes, No breakdown Musculoskeletal: No Tenderness to Palpation of Joints or Extremities, No Muscle Wasting, Arthritic Changes Neurological: Cranial nerves II-XII grossly intact, Deep Tendon Reflexes 2+/4 and Symmetrical, Neuro grossly intact, Muscle tone normal, Sensory exam intact to light touch and pain, Coordination normal Psych/Mental Status: Normal Affect, Appropriate, - - Pleasant Microbiology Past 72 Hours 06/08/20 18:30 Urine, Clean Catch Urine Culture - Preliminary Gram negative efraín Laboratory Results 06/08/20 14:30: Magnesium 1.4 L 06/08/20 18:12: Troponin I 0.117 H 06/08/20 18:30: Urine Color Yellow, Urine Clarity Clear, Urine pH 5.0, Ur Specific Hudson 1.015, Urine Protein 100 H, Urine Glucose (UA) Normal, Urine Ketones Negative, Urine Occult Blood 25 H, Urine Nitrite Negative, Urine Bilirubin Negative, Urine Urobilinogen Normal, Ur Leukocyte Esterase 500 H, Urine RBC 0-5 SEEN, Urine WBC 10-25 SEEN, Ur Squamous Epith Cells 0-5 SEEN, Urine Bacteria 2+, Urine Mucus 0 SEEN 06/08/20 18:30: POC Glucose 125 H 06/08/20 20:32: Troponin I 0.138 H 06/08/20 21:33: POC Glucose 171 H 06/09/20 00:30: Troponin I 0.176 H 06/09/20 03:16: WBC 10.8, RBC 4.04 L, Hgb 12.3, Hct 38.1, MCV 94.3, MCH 30.4, MCHC 32.3, RDW Std Deviation 44.4 H, RDW Coeff of Frod 13.0, Plt Count 206, MPV 9.9, Immature Gran % (Auto) 0.300, Neut % (Auto) 65.0, Lymph % (Auto) 25.8, Motley % (Auto) 4.5, Eos % (Auto) 3.7, Baso % (Auto) 0.7, Absolute Neuts (auto) 7.0, Absolute Lymphs (auto) 2.78, Nucleated RBC % 0 06/09/20 03:16: Sodium 138, Potassium 4.1, Chloride 104, Carbon Dioxide 26.0, Anion Gap 8, BUN 24 H, Creatinine 1.44 H, Estim Creat Clear Calc 27.52, Est GFR (MDRD) Af Amer 46 L, Est GFR (MDRD) Non-Af 38 L, BUN/Creatinine Ratio 16.7, Glucose 152 H, Calcium 10.2 H, Magnesium 2.3, Triglycerides 264 H, Cholesterol 232 H, LDL Cholesterol 134 H, VLDL Cholesterol 53 H, HDL Cholesterol 45, TSH 2.94 06/09/20 03:16: Troponin I 0.162 H 06/09/20 06:12: Troponin I 0.146 H 06/09/20 06:15: POC Glucose 130 H 06/09/20 10:58: POC Glucose 170 H Current Medications Acetaminophen (Acetaminophen 325 Mg Tablet) 650 mg PO Q6H PRN PRN PRN Reason: Pain Score 1-10/Temp > 100.7 F Allopurinol (Allopurinol 300 Mg Tablet) 300 mg PO DAILYCM [facility] Last Admin: 06/09/20 15:40 Dose: 300 mg Documented by: Aspirin (Aspirin 81 Mg Tab.Chew) 81 mg PO DAILY@0800 [facility] Last Admin: 06/09/20 10:19 Dose: 81 mg Documented by: Atorvastatin Calcium (Atorvastatin Calcium 80 Mg Tablet) 80 mg PO QHS [facility] Fluoxetine HCl (Fluoxetine 10 Mg Capsule) 10 mg PO DAILY [facility] Last Admin: 06/09/20 15:41 Dose: 10 mg Documented by: Hydralazine HCl (Hydralazine 20 Mg/Ml Vial) 5 mg IV Q30M PRN PRN Reason: to maintain BP goals Sodium Chloride () 1,000 mls @ 75 mls/hr IV .[id number] [facility] Last Admin: 06/09/20 13:50 Dose: 75 mls/hr Documented by: Sodium Chloride () 1,000 mls @ 15 mls/hr IV .Q48H [facility] Last Admin: 06/09/20 15:41 Dose: Not Given Documented by: Labetalol HCl (Labetalol (Prefilled) 20 Mg/4 Ml) 10 - 20 mg IV Q10M PRN PRN PRN Reason: to Maintain BP Goals Melatonin (Melatonin 3 Mg Tablet) 3 mg PO QHS PRN PRN PRN Reason: INSOMNIA Metoprolol Tartrate (Metoprolol Tartrate 50 Mg Tablet) 50 mg PO BID [facility] Morphine Sulfate (Morphine 2 Mg/Ml Syringe) 2 mg IV Q3H PRN PRN PRN Reason: Pain Score 6-10 Ondansetron HCl (Ondansetron 4 Mg/2 Ml Vial) 4 mg IV Q8H PRN PRN PRN Reason: NAUSEA/VOMITING Oxycodone HCl (Oxycodone 5 Mg Tablet) 5 mg PO Q4H PRN PRN PRN Reason: Pain Score 4-5 Senna/Docusate Sodium (Senna/Docusate Sodium 1 Tablet) 2 tablet PO BID PRN PRN PRN Reason: Constipation STROKE Vital Signs/Narrative: Vital Signs Temp Pulse Resp BP Pulse Ox 06/09/20 15:41 77 196/90 H 06/09/20 15:30 86 18 222/92 H 92 06/09/20 15:00 98.1 F 86 18 186/87 H 97 06/09/20 14:30 80 18 186/87 H 98 06/09/20 14:15 78 18 212/110 H 96 06/09/20 14:00 86 18 187/88 H 94 06/09/20 13:55 97.6 F L 87 18 184/88 H 95 06/09/20 13:45 97.6 F L 86 18 184/88 H 95 Assessment/Plan ASSESSMENT Lightheadedness Troponin elevation CAD Aortic stenosis-mild Bacteriuria CKD stage IIIa GERBER Hypercalcemia Hypertriglyceridemia Hyperlipidemia Gout Hypertension DM-2 Depression Obesity PLAN -Work-up for lightheadedness was unremarkable and therefore the patient was taken to the Risk Prevention Engineer to rule out coronary disease given elevation of troponin -Patient was to found to have diffuse LAD coronary disease and medical management for this was recommended, she also had mild disease in the circumflex artery in the RCA -She will be maintained on aspirin, beta-sophia, statin -She also had mild aortic stenosis on cardiac catheterization -Repeat BMP in a.m. to assess for improvement in GERBER and hypercalcemia -Check a.m. hemoglobin A1c -UA was suggestive of urinary tract infection and urine culture was obtained--> is positive for gram-negative efraín but colony counts are 50-80,000 and therefore likely insignificant and suggestive of bacteriuria without urinary tract infection -She will likely need dual therapy for her blood pressure, her lisinopril is on hold with recent cardiac catheterization and GERBER -Continue beta-sophia -Increase dose of as needed hydralazine to 10 mg Inpatient E&M: [id number] [facility] L[facility]
--- NOTE | 2020-06-09 15:30 | CASEMGMT ---
RN KRYSTAL NOTE: Intro role of CM to patient and KIRK form explained re: Observation status for treatment of dizziness. Explained hospitalization will be paid per insurance policy for Outpatient billing and condition will continue to be evaluated for Inpt necessity. Also let pt know that [facility] sends paper in the billing packet with their phone number if questions arise. Discussed Pharmacy section of KIRK form and self administered medication guideline. Pt verbalizes understanding and does not have further questions. Form signed, copy made and placed in chart, and original given to pt. Kenyon CARVALHO RN CM
[2020-06-09] MEDS: amLODIPine 5 MG Tablet PO (15:40)
[2020-06-09] MEDS: Allopurinol 300 MG Tablet PO (15:40)
[2020-06-09] MEDS: Metoprolol Tartrate 50 MG Tablet PO ×2 (15:41→21:44)
[2020-06-09] MEDS: FLUoxetine 10 MG Capsule PO (15:41)
[2020-06-09 17:15] LABS: Bedside Glucose 234 mg/dL (70-110)
[2020-06-09] MEDS: hydrALAZINE 20 MG/ML Vial 10 MG IV (17:34)
[2020-06-09] MEDS: Atorvastatin Calcium 80 MG Tablet PO (21:44)
[2020-06-10] VITALS (7 sets, daily range): BP systolic 151–156; BP diastolic 86–97; PULSE 82–120; RESP 14–18; TEMP 36.2–37; O2SAT 93–98; BMI 38.2
[2020-06-10 01:36] LABS: Bedside Glucose 213 mg/dL (70-110)
[2020-06-10] MEDS: 0.9% Normal Saline 1,000 ML 75 ML IV (03:23)
[2020-06-10 06:35] LABS: Absolute Lymphocyte Count 1.61 X10^3/uL (0.83-4.51); Absolute Neutrophil Count 6.8 X10^3/uL (2.0-7.7); Basophil# 0.05 X10^3/uL; Basophil% 0.5 % (0-1); Eosinophil# 0.42 X10^3/uL; Eosinophils% 4.4 % (0-5); Hematocrit 36.9 % (37-47); Hemoglobin 11.9 g/dL (12.0-15.0); Lymphocyte # 1.61 X10^3/ul (4.0); Lymphocyte % 16.8 % (19-41); Mean Corp Hgb Conc 32.2 g/dL (32-36); Mean Corpuscular Hgb 30.3 pg (27.0-32.0); Mean Corpuscular Volume 93.9 fL (81-99); Mean Platelet Vol. 9.9 fl (6.2-12.0); Monocyte# 0.63 X10^3/uL; Monocyte% 6.6 % (0-10); NRBC Flagged by Analyzer 0 % (0-5); Neutrophil # 6.81 X10^3/uL (2.7-7.7); Neutrophil % 71.3 % (47-70); Platelet Count 177 K/mm3 (150-450); RBC Distribution Width CV 13.1 % (11.6-14.6); RBC Distribution Width SD 45.1 fl (35.1-43.9); Red Blood Count 3.93 M/mm3 (4.2-5.4); White Blood Count 9.6 K/mm3 (4.4-11.0)
[2020-06-10 06:46] LABS: Bedside Glucose 178 mg/dL (70-110)
[2020-06-10 06:55] LABS: Anion Gap 8 (5-15); BUN 22 mg/dL (7-18); Calcium,Total 9.9 mg/dL (8.5-10.1); Chloride 106 mmol/L (98-107); Creatinine, Serum 1.16 mg/dL (0.55-1.02); EST Glomerular Filtration Rate 49 mL/min (>60); Est Glom Filt Rate - Afr Amer 59 mL/min (>60); Estimated Creatinine Clearance 34.16 ml/min; Glucose 174 mg/dL (74-106); Potassium 3.8 mmol/L (3.5-5.1); Sodium Level 139 mmol/L (136-145)
[2020-06-10] MEDS: Metoprolol Tartrate 50 MG Tablet PO (08:15)
[2020-06-10] MEDS: FLUoxetine 10 MG Capsule PO (08:16)
[2020-06-10] MEDS: Aspirin 81 MG TAB.CHEW PO (08:16)
[2020-06-10] MEDS: Allopurinol 300 MG Tablet PO (08:16)
[2020-06-10 08:48] LABS: Hemoglobin A1c 7.6 % (3.8-5.6)
--- NOTE | 2020-06-10 09:54 | PCM.DC ---
- Discharge Diagnoses Current Active Problems: Current Active and Chronic Problems (Last Updated 06/09/20 @ 16:37 by Elena Dobbins) Headache (Acute) Lightheadedness (Acute) Dizziness (Acute) You will use the following diet at home:: Calorie/Carbohydrate Controlled (specify 1200, 1400, etc), Cardiac Your food should be the consistency of: Regular Your liquids should be the consistency of: Regular/Thin Discharge Activity: Return to Normal Activity, No Restrictions Call your doctor if you observe: Dizziness, Fainting spells, Swelling in the ankles, Chest pain Allergies/Adverse Reactions: Allergies No Known Allergies Allergy (Verified 06/08/20 14:11) Medications to take at Discharge Fluoxetine [Prozac] 10 mg PO DAILY 06/16/16 metFORMIN HCl [Glucophage] 1,000 mg PO BIDCM 06/16/16 Acetaminophen [Tylenol Arthritis] 1,300 mg PO DAILY PRN 06/08/20 Allopurinol 300 mg PO DAILY 06/08/20 Lisinopril [Zestril] 20 mg PO DAILY 06/08/20 Aspirin [Aspirin, Baby] 81 mg PO DAILY@0800 #30 tab.chew 06/10/20 Atorvastatin Calcium [Lipitor] 80 mg PO QHS #30 tablet 06/10/20 Metoprolol Tartrate [Lopressor (beta sophia)] 50 mg PO BID #60 tablet 06/10/20 The following prescriptions were given: Aspirin [Aspirin, Baby] 81 mg PO DAILY@0800 #30 tab.chew Transmission Status: Pending to [facility]/pharmacy #[id number] Atorvastatin Calcium [Lipitor] 80 mg PO QHS #30 tablet Transmission Status: Pending to [facility]/pharmacy #[id number] Metoprolol Tartrate [Lopressor (beta sophia)] 50 mg PO BID #60 tablet Transmission Status: Pending to [facility]/pharmacy #[id number] Primary Care Physician: Saida Leal DO [Primary Care Provider] - Please follow up with your Primary Care Physician in: 1-2 weeks Test Results: Test results from this visit will be discussed in further detail at your follow-up appointment, if applicable. Please Follow Up With: Tobi Jesus MD - [facility] When: office will call and make appt
--- NOTE | 2020-06-10 09:59 | PCM.DC.SUM ---
Discharge Date and Diagnosis - Problem List Patient Problems: Active and Suspected Problems (Last Updated 06/09/20 @ 16:37 by Elena Dobbins) Headache (Acute) Lightheadedness (Acute) Dizziness (Acute) Date of Admission: 06/08/20 Date of Discharge: 06/10/20 - Primary Discharge Diagnosis Acute Problems: Active Problems (Last Updated 06/09/20 @ 16:37 by Elena Dobbins) Headache (Acute) Lightheadedness (Acute) Dizziness (Acute) - Secondary Discharge Diagnosis Chronic Problems: Chronic Problems (Last Updated 06/09/20 @ 16:37 by Elena Dobbins) Atherosclerotic heart disease of [place] coronary artery without angina pectoris (Chronic) Essential (primary) hypertension (Chronic) Hospital Course and Treatment Imaging Results: STUDY: CT BRAIN WITHOUT CONTRAST REASON FOR EXAM: Female, 75 years old. Dizziness RADIATION DOSAGE (If Supplied By Facility): CTDIvol = ( 38.43 ) mGy, DLP = ( 741.51 ) mGycm TECHNIQUE: Transaxial CT imaging of the brain was performed without administration of intravenous contrast material. Individualized dose optimization techniques were used for this CT. COMPARISON: None. FINDINGS: There is no acute bleed or infarct. There are chronic ischemic and atrophic changes. The ventricles are normal in configuration. There is no hydrocephalus. There is opacification of the right maxillary sinus. The visualized paranasal sinuses are otherwise clear. The mastoid air cells are well aerated. There is no skull fracture. CT/Brain/Head without Contrast IMPRESSION: No acute intracranial abnormality. STUDY: CTA CHEST REASON FOR EXAM: Female, 75 years old. elevated d dimer RADIATION DOSAGE (If Supplied By Facility): CTDIvol = ( 12.66 ) mGy, DLP = ( 489.49 ) mGycm TECHNIQUE: The examination was performed with the intravenous administration of IV 100mL Isovue-370. Post-processing of the angiographic images was performed, with multiplanar reformation and 3D reconstruction. Individualized dose optimization techniques were used for this CT. COMPARISON: None. FINDINGS: Evaluation for pulmonary embolus is nondiagnostic of the contrast bolus is primarily within the aorta. There is no thoracic aortic aneurysm or dissection. There are no pulmonary infiltrates or pleural effusions. There is no pneumothorax. The heart and pericardium are within normal limits. There are coronary artery calcifications noted. There is no thoracic lymphadenopathy. Images through the upper abdomen demonstrate cholecystectomy clips. There are no destructive osseous lesions. CT/CTA Chest W/WO Contrast IMPRESSION: Nondiagnostic evaluation for pulmonary embolus as the contrast bolus is primarily within the aorta. No thoracic aortic aneurysm or dissection. Clear lungs. Coronary artery disease. STUDY: MRI BRAIN WITHOUT CONTRAST REASON FOR EXAM: Female, 75 years old. rule out stroke TECHNIQUE: Standardized multiplanar fat and water weighted pulse sequences were obtained. COMPARISON: CT head 06/08/2020. FINDINGS: No intracranial mass, mass effect, or midline shift. No hemorrhage, territorial infarct or acute ischemia. There is mild cerebral atrophy with widening of the extra-axial spaces and ventricular dilatation. There are a limited number of small white matter hyperintensities, distributed throughout the deep white matter tracts of the cerebral hemispheres, consistent with mild chronic white matter ischemic changes. Normal bilateral basal ganglia. Normal thalami. There is no extra-axial fluid accumulation. Normal flow voids within the major intracranial circulation suggesting patency by spin echo criteria. Normal sella turcica, pituitary gland, infundibular stalk, optic chiasm and hypothalamus. Normal tectal plate and pineal gland. There are chronic white matter ischemic changes of the [place]. The midbrain and medulla are otherwise normal. Normal cerebellum. Normal basal cisterns. Normal bilateral temporal bones. Normal bilateral internal auditory canals. Marked mucosal thickening in the right maxillary sinus. Normal calvarium and skull base. Normal visualized soft tissue structures. MRI/Brain without Contrast IMPRESSION: 1. No acute findings. 2. Mild chronic microvascular ischemic changes. Mild atrophy. 3. Chronic sinusitis. Reason For Study: Chest Pain Procedure This was a 2D Doppler, Color Flow transthoracic echocardiogram. Contrast injection was performed. Exam performed portable in patient room. Left Ventricle Normal LV size. Mild concentric left ventricular hypertrophy. Left ventricular systolic function is normal. The estimated ejection fraction is 65 %. Stage 1 diastolic dysfunction. No regional wall motion abnormalities noted. Right Ventricle Normal RV size. Normal systolic function. Atria Normal left atrium. Normal right atrium. Mitral Valve Mild focal mitral valve calcification. There is mild mitral annular calcification. Tricuspid Valve Normal tricuspid valve. Aortic Valve Trisinus/trileaflet aortic valve. Mild focal aortic valve calcification. Peak aortic valve gradient 28 mmHg. Mean aortic valve gradient 14 mmHg. Mild aortic stenosis. Pulmonic Valve Normal pulmonic valve. Great Vessels Normal aortic root. The pulmonary artery is normal size. Normal inferior vena cava. Pericardium/Pleural No pericardial effusion. Medication Diluted definity 2ml given slow IV push to enhance endocardial definition. MMode/2D Measurements & Calculations LVIDd: 4.5 cm IVSd: 1.4 cm LVOT diam: 2.0 cm LVIDs: 2.0 cm LVPWd: 1.2 cm RVDd: 3.3 cm FS: 56.2 % LVOT area: 3.0 cm2 Ao root diam: 3.2 cm LAV(MOD-bp): 57.1 ml LVAd ap4: 27.2 cm2 LAV(MOD-bp) Indexed: 29.3 ml/m2 EDV(MOD-sp4): 78.0 ml LAV(MOD-sp2): 46.3 ml EDV(sp4-el): 81.2 ml LAV(MOD-sp4): 59.2 ml LVAs ap4: 13.3 cm2 ESV(MOD-sp4): 23.8 ml ESV(sp4-el): 23.9 ml EF(MOD-sp4): 69.5 % EF(sp4-el): 70.6 % SV(MOD-sp4): 54.2 ml SV(sp4-el): 57.3 ml LA A4 area: 20.4 cm2 LA dimension(2D): 4.2 cm RA A4 area: 8.4 cm2 Time Measurements MV dec time: 0.31 sec Doppler Measurements & Calculations MV E max isaias: 118.0 cm/sec Lat Peak E' Isaias: 8.9 cm/sec Med Peak E' Isaias: 5.3 cm/sec MV A max isaias: 137.6 cm/sec E/E' lat: 13.2 E/E' med: 22.3 MV E/A: 0.86 MV V2 max: 137.5 cm/sec MV P1/2t max isaias: 133.2 cm/sec Ao V2 max: 263.0 cm/sec MV max P.6 mmHg MV P1/2t: 91.5 msec Ao max P.7 mmHg MV V2 mean: 97.4 cm/sec MV dec slope: 426.2 cm/sec2 Ao V2 mean: 178.5 cm/sec MV mean P.1 mmHg MVA(P1/2t): 2.4 cm2 Ao mean P.4 mmHg MV V2 VTI: 39.9 cm Ao V2 VTI: 50.2 cm MVA(VTI): 2.1 cm2 LUANN(I,D): 1.7 cm2 LUANN(V,D): 1.5 cm2 LV V1 max: 129.6 cm/sec SV(LVOT): 83.6 ml PA V2 max: 93.2 cm/sec LV V1 max P.7 mmHg LV V1 mean P.2 mmHg LV V1 mean: 98.1 cm/sec LV V1 VTI: 27.4 cm Interpretation Summary Normal LV size. Mild concentric left ventricular hypertrophy. Left ventricular systolic function is normal. The estimated ejection fraction is 65 %. Stage 1 diastolic dysfunction. Mean aortic valve gradient 14 mmHg. PROCEDURE(S) PERFORMED [id number]-VJA/COR/LV CLINICAL PROFILE AND INDICATIONS Indications: ACS <= 24 hrs Heart Failure: None Stress/Imaging Stress/Image Study Performed: No CAD Presentations: Symptom unlikely to be ischemic. CONCLUSIONS Severe diffuse disease noted in the mid and distal LAD not amenable to PCI. Mild disease noted in the circumflex artery and mild disease noted in the right coronary artery. Preserved ejection fraction. RECOMMENDATIONS Medical therapy DESCRIPTION OF PROCEDURE The patient arrived to the procedure lab. The risks and benefits of the procedure as well as a full description of our services here and current unavailability of surgical backup were fully explained to the patient and/or their significant other prior to the catheterization. The Timeout was completed, verifying the correct patient and procedure. The patient's procedural site was prepped and draped in the usual fashion. Local anesthetic was given subcutaneously to right radial region with Lidocaine 2%. Using a modified Seldinger technique, arterial access was obtained via the right radial artery, a 6Fr sheath was inserted. Left Coronary Artery selective angiography was performed in multiple views using a 5 Fr. 4.0 [place] catheter. Right Coronary Artery selective angiography was then performed in multiple views using a 5 Fr. 4.0 [place] catheter. Left Ventriculography was performed in GARCIA projection using a 5 Fr. Pigtail catheter. LV to AO pullback pressures were then recorded.The arterial sheath was pulled and a TR Band was applied for hemostasis w/ 15ml air CORONARY ANGIOGRAPHY DOMINANCE: Right Dominant LEFT HEART ASSESSMENT Left Ventricular Ejection Fraction: by LV Gram 75 % Normal LV wall motion Normal Left Ventricular systolic function LEFT MAIN: Angiographically normal LEFT ANTERIOR DESCENDING ARTERY: PROX LAD: Mild luminal irregularities less than 30% MID LAD: Diffusely diseased up to 70 % DIAGONAL 1: Proximal - Diffusely diseased up to 70 % CIRCUMFLEX ARTERY: Mild luminal irregularities RIGHT CORONARY ARTERY: Mild luminal irregularities less than 30% VALVE FINDINGS: Aortic Valve Stenosis - mild Mitral Valve Calcification Moderate COMPLICATIONS No Complications PROCEDURE MEDICATIONS Versed 1 mg IV Fentanyl 50 mcg IV Oxygen: 2 L/min via nasal cannula Heparin diluted in 23cc Heparinized saline. Patient given 10cc IA of this solution. 06/09/2020 12:55:33 Verapamil 2.5mg, Ntg 100mcgs, 2000 units of Heparin diluted in 23cc Heparinized saline. Patient given 10cc IA of this solution. 06/09/2020 12:55:33 SUMMARY OF HEMODYNAMIC DATA Time AIR REST ECG 12:23:39 AO 153/90 (124) SA 12:59:50 LV 147/10, 22 13:07:41 LV 145/13, 28 13:07:47 LV 166/21, 0 13:08:37 LV 183/15, 26 13:08:47 LVp 129/14, 0 13:08:56 AOp 187/107 (144) 13:09:01 Cardiology Operations: None Procedures: Cardiac catheterization Summary of Care Provided: Ms. Wilmar ponce is a 75 year old WF with a past medical history of DM-2, gout, hypertension, and depression who presented to the emergency department [facility] on 06/08/2020 complaining of a headache and lightheadedness. She reported at the time of admission that her symptoms seem to be positional. At the time she denied any chest pain, shortness of breath, syncope, confusion, nausea, vomiting, tingling, numbness, or falls. Orthostatic vitals were assessed in the emergency department and were within normal limits. A D-dimer was performed and was mildly elevated and therefore a CTA of her chest was done but demonstrated no pulmonary embolism or evidence of aortic dissection. A CT of her brain showed no acute ischemia or hemorrhage. She had a mildly elevated creatinine at 1.58 and initial troponin of 0.046. She at that time was admitted to PCU for continued monitoring and further work-up. Through the night her cardiac enzymes were steadily rising and aspirin, therapeutic Lovenox, and echo, and a cardiology consult were added to her orders. After being evaluated by cardiology since there was no other noted reason for her lightheadedness a cardiac catheterization was performed on 06/09/2020 and showed severe diffuse disease in the mid and distal LAD that was not amenable to PCI and mild disease in the circumflex and RCA with a preserved ejection fraction. She was also noted to have mild aortic stenosis as well. Cardiology elected to treat her medically at this point with continued follow-up. She was placed on high-dose statin, beta-sophia, daily baby aspirin, and she is to continue her home lisinopril. Prescriptions were written for her new medications. An MRI of her brain was done during her hospitalization and showed no acute findings but mild chronic microvascular ischemic changes and mild atrophy. She also had an echocardiogram that showed a normal LV size with mild concentric LVH and an EF of 65%. Stage I diastolic dysfunction was identified. She had no regional wall motion abnormalities noted on echo. The mean gradient across her aortic valve was 14 mmHg. Her serum creatinine steadily improved throughout her hospitalization. On discharge her serum creatinine was 1.16. Hemoglobin A1c was obtained it was 7.6 and although she has room for improved glycemic control no medication changes were made at this time and she was encouraged to follow-up with her primary care physician. Her total cholesterol was 232 with an LDL of 134 and HDL of 45 and a triglyceride level of 264. She will continue her Metformin 1000 mg twice daily for now. All new medications were faxed to her pharmacy. She is to follow-up with her primary care physician in 1 to 2 weeks. She will follow up with Dr. Jesus and his office will call her for future appointment. Discharge diagnoses Lightheadedness-resolved Coronary artery disease Hypertension Hyperlipidemia [id number] CKD stage IIIa Gout Depression Obesity-BMI 38.3 Discharge time greater than 35 minutes Patient Problems: Active and Suspected Problems (Last Updated 06/09/20 @ 16:37 by Elena Dobbins) Headache (Acute) Lightheadedness (Acute) Dizziness (Acute) Subjective: She states she is feeling well today. Has had no recurrent lightheadedness since her admission. Denies any chest pain. Is anxious to go home. I discussed with the patient her new medication regimen and need for improved glycemic control. She is aware she needs to follow-up with her primary care physician in 1 to 2 weeks and that she will have pending cardiology follow-up. - Physical Exam Vitals/I&O's: Vital Signs Temp Pulse Resp BP Pulse Ox 97.2 F L 82 14 151/86 H 94 06/10/20 07:53 06/10/20 08:15 06/10/20 07:53 06/10/20 08:15 06/10/20 07:53 Oxygen Delivery Method Room Air Weight: 94.937 kg Body Mass Index (BMI) 38.2 Intake and Output for Last 24 Hours 06/08/20 06/09/20 06/10/20 23:59 23:59 23:59 Intake Total 1000 / 1300 1820 / 1940 1120 / 1120 Balance 1000 / 1300 1820 / 1940 1120 / 1120 General: Alert, Oriented x3, Cooperative, No apparent distress, Well developed, Well nourished, - - Older white female sitting up in a chair awaiting her breakfast. Appears well, nontoxic HEENT: Atraumatic, PERRLA, EOMI, Normocephalic, EAC Clear Oral: Moist Mucosa, No Gingival or Mucosal Lesions/ Ulcerations, - - Mallampati 2-3 Neck: Supple, No JVD, Trachea Midline, Thyroid Normal Size and Texture Lungs: Clear to auscultation, Normal air movement, No rhonchi, No wheeze Cardiovascular: Regular rate, Regular Rhythm, Normal S1, Normal S2, No Ectopic Activity, Murmur - 2-3 out of 6, No rub noted, No Gallop Abdomen: Bowel Sounds Present, Soft, Non Tender, Non-Distended, Obese Extremities: No clubbing, No cyanosis, No edema, Capillary Refill Less than 3 Seconds, Peripheral Pulses Normal Skin: No rashes, No breakdown Musculoskeletal: No Tenderness to Palpation of Joints or Extremities, No Muscle Wasting, Arthritic Changes Lymphatic: No Cervical, Supraclavicular, or Inguinal Adenopathy Neurological: Cranial nerves II-XII grossly intact, Neuro grossly intact, Muscle tone normal, Coordination normal Psych/Mental Status: Normal Affect, Appropriate Microbiology Past 72 Hours 06/08/20 18:30 Urine, Clean Catch Urine Culture - Final Escherichia coli Laboratory Results 06/09/20 10:58: POC Glucose 170 H 06/09/20 16:42: POC Glucose 234 H 06/09/20 21:51: POC Glucose 213 H 06/10/20 06:14: WBC 9.6, RBC 3.93 L, Hgb 11.9 L, Hct 36.9 L, MCV 93.9, MCH 30.3, MCHC 32.2, RDW Std Deviation 45.1 H, RDW Coeff of [place] 13.1, Plt Count 177, MPV 9.9, Immature Gran % (Auto) 0.400, Neut % (Auto) 71.3 H, Lymph % (Auto) 16.8 L, [place] % (Auto) 6.6, Eos % (Auto) 4.4, Baso % (Auto) 0.5, Absolute Neuts (auto) 6.8, Absolute Lymphs (auto) 1.61, Nucleated RBC % 0 06/10/20 06:14: Sodium 139, Potassium 3.8, Chloride 106, Carbon Dioxide 25.0, Anion Gap 8, BUN 22 H, Creatinine 1.16 H, Estim Creat Clear Calc 34.16, Est GFR (MDRD) Af Amer 59 L, Est GFR (MDRD) Non-Af 49 L, BUN/Creatinine Ratio 19.0, Glucose 174 H, Calcium 9.9 06/10/20 06:14: Hemoglobin A1c 7.6 H 06/10/20 06:33: POC Glucose 178 H Current Medications Acetaminophen (Acetaminophen 325 Mg Tablet) 650 mg PO Q6H PRN PRN PRN Reason: Pain Score 1-10/Temp > 100.7 F Allopurinol ([facility] 300 Mg Tablet) [facility] Last Admin: 06/10/20 08:16 Dose: 300 mg Documented by: Aspirin (Aspirin 81 Mg Tab.Chew) 81 mg PO DAILY@0800 [facility] Last Admin: 06/10/20 08:16 Dose: 81 mg Documented by: Atorvastatin Calcium (Atorvastatin Calcium 80 Mg Tablet) 80 mg PO QHS [facility] Last Admin: 06/09/20 21:44 Dose: 80 mg Documented by: Fluoxetine HCl (Fluoxetine 10 Mg Capsule) 10 mg PO DAILY [facility] Last Admin: 06/10/20 08:16 Dose: 10 mg Documented by: Hydralazine HCl (Hydralazine 20 Mg/Ml Vial) 10 mg IV Q6H PRN PRN PRN Reason: SBP > 160 Last Admin: 06/09/20 17:34 Dose: 10 mg Documented by: Sodium Chloride () 1,000 mls @ 75 mls/hr IV .[id number] [facility] Last Admin: 06/10/20 05:05 Dose: Not Given Documented by: Sodium Chloride () 1,000 mls @ 15 mls/hr IV .Q48H [facility] Last Admin: 06/09/20 15:41 Dose: Not Given Documented by: Labetalol HCl (Labetalol (Prefilled) 20 Mg/4 Ml) 10 - 20 mg IV Q10M PRN PRN PRN Reason: to Maintain BP Goals Melatonin (Melatonin 3 Mg Tablet) 3 mg PO QHS PRN PRN PRN Reason: INSOMNIA Metoprolol Tartrate (Metoprolol Tartrate 50 Mg Tablet) 50 mg PO BID [facility] Last Admin: 06/10/20 08:15 Dose: 50 mg Documented by: Morphine Sulfate (Morphine 2 Mg/Ml Syringe) 2 mg IV Q3H PRN PRN PRN Reason: Pain Score 6-10 Ondansetron HCl (Ondansetron 4 Mg/2 Ml Vial) 4 mg IV Q8H PRN PRN PRN Reason: NAUSEA/VOMITING Oxycodone HCl (Oxycodone 5 Mg Tablet) 5 mg PO Q4H PRN PRN PRN Reason: Pain Score 4-5 Senna/Docusate Sodium (Senna/Docusate Sodium 1 Tablet) 2 tablet PO BID PRN PRN PRN Reason: Constipation Discharge Activity: Return to Normal Activity, No Restrictions Call your doctor if you observe: Dizziness, Fainting spells, Swelling in the ankles, Chest pain Home Medications: Medications to take at Discharge Fluoxetine [Prozac] 10 mg PO DAILY 06/16/16 metFORMIN HCl [Glucophage] 1,000 mg PO BIDCM 06/16/16 Acetaminophen [Tylenol Arthritis] 1,300 mg PO DAILY PRN 06/08/20 Allopurinol 300 mg PO DAILY 06/08/20 Lisinopril [Zestril] 20 mg PO DAILY 06/08/20 Aspirin [Aspirin, Baby] 81 mg PO DAILY@0800 #30 tab.chew 06/10/20 Atorvastatin Calcium [Lipitor] 80 mg PO QHS #30 tablet 06/10/20 Metoprolol Tartrate [Lopressor (beta sophia)] 50 mg PO BID #60 tablet 06/10/20 Following Prescriptions Were Given to Patient: Aspirin [Aspirin, Baby] 81 mg PO DAILY@0800 #30 tab.chew Transmission Status: Pending to [facility]/pharmacy #[id number] Atorvastatin Calcium [Lipitor] 80 mg PO QHS #30 tablet Transmission Status: Pending to [facility]/pharmacy #[id number] Metoprolol Tartrate [Lopressor (beta sophia)] 50 mg PO BID #60 tablet Transmission Status: Pending to [facility]/pharmacy #[id number] Primary Care Physician: Saida Leal, [Primary Care Provider] - Please follow up with your Primary Care Physician in: 1-2 weeks Please Follow Up With: Tobi Jesus MD - [employer]sa Officer When: office will call and make appt Medical Necessity - Tobacco Use Smoking Status: Never smoker Tobacco Use: Non-smoker Meaningful Use Info Meaningful Use Diagnoses (Choose all that apply): None applicable Inpatient E&M: 72580 [facility]
--- NOTE | 2020-06-10 10:21 | CASEMGMT ---
SW did not complete a PHQ 9 with patient as per physician she did not have a Stroke or TIA. Fabienne CHANDLER
--- NOTE | 2020-06-10 10:24 | PN.CARD_ITS ---
Subjectve: Patient seen and evaluated. Objective: Vital Signs Temp Pulse Resp BP Pulse Ox 97.2 F L 82 14 151/86 H 94 06/10/20 10:13 06/10/20 10:13 06/10/20 10:13 06/10/20 10:13 06/10/20 10:13 Oxygen Delivery Method Room Air Weight: 209 lb 4.8 oz Body Mass Index (BMI) 38.2 Intake and Output for Last 24 Hours 06/08/20 06/09/20 06/10/20 23:59 23:59 23:59 Intake Total 1000 / 1299 1820 / 1940 1120 / 1120 Balance 1000 / 1300 1819 / 1939 1120 / 1120 General: Awake, Alert, Oriented x 3 HEENT: PERRL, EOMI, Sclera Non Icteric Neck: Supple, Good ROM, No Lymph Node Enlargement Lungs: Clear to auscultation Cardiovascular: Regular Rhythm, Normal S1, Normal S2, No Murmurs, No Rubs, No Gallops 06/10/20 06:14: WBC 9.6, RBC 3.93 L, Hgb 11.9 L, Hct 36.9 L, MCV 93.9, MCH 30.3, MCHC 32.2, Plt Count 177, MPV 9.9, Immature Gran % (Auto) 0.400, Neut % (Auto) 71.3 H, Lymph % (Auto) 16.8 L, [place] % (Auto) 6.6, Eos % (Auto) 4.4, Baso % (Auto) 0.5, Absolute Neuts (auto) 6.8, Nucleated RBC % 0 06/10/20 06:14: Sodium 139, Potassium 3.8, Chloride 106, Carbon Dioxide 25.0, Anion Gap 8, BUN 22 H, Creatinine 1.16 H, Est GFR (MDRD) Af Amer 59 L, Est GFR (MDRD) Non-Af 49 L, BUN/Creatinine Ratio 19.0, Glucose 174 H, Calcium 9.9 06/10/20 06:14: Hemoglobin A1c 7.6 H Rhythm: EKG: ECHO: Stress Test: Cardiac Cath: PCI: CT Surgery: Holter monitor: EPS: PPM: CXR: Chest CT Scan: Medical Necessity - Tobacco Use Smoking Status: Never smoker Tobacco Use: Non-smoker Assessment/Plan 1. Abnormal cardiac [id number] * Patient is noted to have abnormal cardiac enzymes with nonspecific EKG changes. * She has been worked up with a CTA which demonstrated no evidence of pulmonary embolism, brain CT and MRI did not demonstrate any significant abnormalities and at this juncture it appears that the abnormal cardiac enzymes need to be worked up. * * * After work-up the cardiac catheterization demonstrated the following * Normal left main coronary artery * Left anterior descending artery with severe diffuse disease noted in the mid and distal segments and also involving the first diagonal vessel and first septal braider setter * Mild disease noted involving the left circumflex artery in a nondominant vessel * Mild diffuse disease involving the right coronary artery and a dominant vessel * Preserved left ventricular systolic function with hyperdynamic function estimated EF 75% with mitral annular calcification and mild aortic stenosis only. * * Based on the above angiographic findings I would recommend beta-sophia with metoprolol 50 mg twice a day * Continue high intensity statin * Continue aspirin * Thank you for allowing me to participate in the care of your patient. Please don't hesitate to call if any issues arise. Patient can be discharged for outpatient follow-up.
== END 2020-06-10 09:58 | disposition home or self-care (01) ==
LOC: ED 14:42 → PCU 16:51
PROVIDERS: Family Medicine; Admitting Provider Internal Medicine; Emergency Provider Emergency Medicine; PCP Family Medicine; Visit Provider Internal Medicine
DX: R42 Dizziness and giddiness (principal); R51.9 Headache, unspecified; I25.10 Atherosclerotic heart disease of native coronary artery without angina pectoris; E11.22 Type 2 diabetes mellitus with diabetic chronic kidney disease; N18.31 Chronic kidney disease, stage 3a; I12.9 Hypertensive chronic kidney disease with stage 1 through stage 4 chronic kidney disease, or unspecified chronic kidney disease; R00.0 Tachycardia, unspecified; R55 Syncope and collapse; I35.0 Nonrheumatic aortic (valve) stenosis; R74.8 Abnormal levels of other serum enzymes; R29.700 NIHSS score 0; E66.9 Obesity, unspecified; F32.9 Major depressive disorder, single episode, unspecified; E78.5 Hyperlipidemia, unspecified; M10.9 Gout, unspecified; Z79.84 Long term (current) use of oral hypoglycemic drugs; Z79.899 Other long term (current) drug therapy; Z68.38 Body mass index [BMI] 38.0-38.9, adult
CPT/HCPCS: 36415; 70450; 70551; 71045; 71275; 80048; 80053; 80061; 81001; 82962; 83036; 83735; 84443; 84484; 85025; 85379; 87077; 87086; 87088; 87186; 93005; 93306; 93458; 94762; 96361; 96372; 96374; 99152; 99153; 99218; 99251; 99285; J7030; J7040; Q9957; Q9967; C1769; C1894; C8929; G0378; G0463

== ENCOUNTER → 2021-03-01 15:18 | Outpatient (CLI) | payer MEDICARE, SELFPAY ==
[2021-03-01 17:00] LABS: Absolute Lymphocyte Count 1.91 X10^3/uL (0.83-4.51); Basophil# 0.06 X10^3/uL; Basophil% 0.6 % (0-1); Eosinophil# 0.79 X10^3/uL; Eosinophils% 8.4 % (0-5); Hematocrit 37.7 % (37-47); Hemoglobin 11.8 g/dL (12.0-15.0); Lymphocyte # 1.91 X10^3/ul (0.83-4.51); Lymphocyte % 20.4 % (19-41); Mean Corp Hgb Conc 31.3 g/dL (32-36); Mean Corpuscular Hgb 29.6 pg (27.0-32.0); Mean Corpuscular Volume 94.5 fL (81-99); Mean Platelet Vol. 10.3 fl (6.2-12.0); Monocyte# 0.57 X10^3/uL; Monocyte% 6.1 % (0-10); NRBC Flagged by Analyzer 0 % (0-5); Neutrophil # 6.03 X10^3/uL (2.7-7.7); Neutrophil % 64.4 % (47-70); Platelet Count 212 K/mm3 (150-450); RBC Distribution Width CV 13.4 % (11.6-14.6); RBC Distribution Width SD 46.4 fl (35.1-43.9); Red Blood Count 3.99 M/mm3 (4.2-5.4); White Blood Count 9.4 K/mm3 (4.4-11.0)
[2021-03-01 17:15] LABS: ALB/GLOB Ratio 0.9 RATIO (0.9-2.4); AST(SGOT) 14 U/L (15-37); Alanine Aminotransfer ALT/SGPT 21 U/L (13-56); Albumin, Serum 3.5 g/dL (3.2-5.0); Alkaline Phosphatase 85 U/L (45-117); Anion Gap 4 (5-15); BUN 25 mg/dL (7-18); BUN/Creat Ratio 21.9 RATIO (10-20); Calcium,Total 10.1 mg/dL (8.5-10.1); Chloride 105 mmol/L (98-107); Creatinine, Serum 1.14 mg/dL (0.55-1.02); EST Glomerular Filtration Rate 50 mL/min (>60); Est Glom Filt Rate - Afr Amer 60 mL/min (>60); Globulin 3.8 g/dL (2.2-4.2); Glucose 155 mg/dL (74-106); Potassium 4.6 mmol/L (3.5-5.1); Protein, Total 7.3 g/dL (6.4-8.2); Sodium Level 138 mmol/L (136-145)
[2021-03-01 17:19] LABS: Vitamin D,25 Hydroxy 16.8 ng/mL
== END ==
LOC: BIMLAB 15:18
PROVIDERS: PCP Internal Medicine; Visit Provider Internal Medicine
DX: E55.9 Vitamin D deficiency, unspecified (principal); E11.9 Type 2 diabetes mellitus without complications; I10 Essential (primary) hypertension
CPT/HCPCS: 36415; 80053; 82306; 85025

== ENCOUNTER 2021-09-06 16:44 | Emergency (ER) | payer MEDICARE, SELFPAY ==
[2021-09-06 16:45] VITALS: BP 130/90; PULSE 74; RESP 18; TEMP 36.1; O2SAT 99; BMI 32.9
--- NOTE | 2021-09-06 17:05 | EKG12_ITS ---
Test Reason : DIZZINESS Blood Pressure : / mmHG Vent. Rate : 071 BPM Atrial Rate : 071 BPM P-R Int : 182 ms QRS Dur : 070 ms QT Int : 408 ms P-R-T Axes : 030 -10 069 degrees QTc Int : 443 ms Normal sinus rhythm Normal ECG Confirmed by ALEXI LOYOLA, DEBORAH ([id number]), editor managing director KATIE SOLIS ([id number]) on 09/08/2021 10:22:20 AM Referred By: LB Confirmed By:DEBORAH TRUONG MD
--- NOTE | 2021-09-06 17:08 | EDS_ITS ---
HPI History of Present Illness Chief Complaint: Dizziness Narrative Narrative: 76-year-old male past medical history of hypertension and diabetes presents with lightheadedness and dizziness that she has had for the last 3 days. She states very intermittent. It only lasts a few minutes when she tries to sit up or stand. It happens usually at night when she has been lying in bed and tries to sit up. She states the room can spin for a minute. She denies any nausea or vomiting. No chest pain or shortness of breath. No headaches. No paresthesias. She denies any fever or chills. No cough. No nausea or vomiting. She states she has chronic diarrhea. No other symptoms. [facility] Medical History Atherosclerotic heart disease of [place] coronary artery without angina pectoris Dizziness Essential (primary) hypertension Gout Headache History of non-ST elevation myocardial infarction (NSTEMI) (06/08/20) Lightheadedness Obesity Post-menopausal Type 2 diabetes mellitus Home Medications fluoxetine 10 mg capsule 10 mg PO DAILY 06/16/16 [History Last Taken 06/08/20] metformin 1,000 mg tablet 1,000 mg PO BIDCM DM 06/16/16 [History Last Taken 06/08/20] acetaminophen 650 mg tablet,extended release 1,300 mg PO DAILY PRN Pain 1-10 Or Fever 06/08/20 [History Last Taken 2 Days Ago ~06/06/20] allopurinol 300 mg tablet 300 mg PO DAILY GOUT 06/08/20 [History Last Taken 06/08/20] aspirin 81 mg tablet,delayed release (Adult Aspirin Regimen) 81 mg PO DAILY #90 tabs 07/26/20 [Rx Last Taken Unknown] atorvastatin 80 mg tablet 80 mg PO QHS #90 tabs 07/26/20 [Rx Last Taken Unknown] lisinopril 20 mg tablet 20 mg PO DAILY BP #90 tabs 07/26/20 [Rx Last Taken Unknown] metoprolol tartrate 50 mg tablet 50 mg PO BID #180 tabs 07/26/20 [Rx Last Taken Unknown] amlodipine 5 mg tablet 5 mg PO DAILY #90 tabs 11/26/20 [Rx Last Taken Unknown] albuterol sulfate 90 mcg/actuation aerosol inhaler 2 puff inhalation Q6H PRN 03/01/21 [History Last Taken Unknown] cholecalciferol (vitamin D3) 1,250 mcg (50,000 unit) capsule 1,250 mcg PO QWEEK #14 caps 05/30/21 [Rx Last Taken Unknown] dulaglutide 0.75 mg/0.5 mL subcutaneous pen injector 0.75 mg (0.5 mL) subcut QWEEK #2 mL 07/14/21 [Rx Last Taken Unknown] cephalexin 500 mg capsule 500 mg PO Q12 #14 caps 09/06/21 [Rx Last Taken Unknown] Allergy/AdvReac Type Severity Reaction Status Date / Time No Known Allergies Allergy Verified 09/06/21 16:46 Family History Father Myocardial infarction, Onset Age: 52 Other Anxiety Arthritis Asthma Diabetes Hypertension Surgical History History of cholecystectomy History of hernia repair History of left heart catheterization (06/09/20) Social History Smoking Status: Never smoker alcohol intake: never substance use type: does not use what type of physical activity do you participate in: bicycling frequency: 1-2 times per week ROS ROS ED ROS Narrative Constitutional: No fever, no chills. HEENT: No sore throat. No neck pain. No loss of vision. No rhinorrhea. Cardiovascular: No chest pain. No palpitations. No pedal edema. Respiratory: No cough, no shortness of breath. Abdominal: No abdominal pain. No nausea. No vomiting. Genitourinary: No dysuria. No hematuria. Musculoskeletal: No myalgias. No arthralgias. Neurologic: No headaches. Intermittent dizziness. Positive lightheadedness. Worse with standing and sitting up. Skin: No rash. No change in color. Psychiatric: No depression. No anxiety. EXAM Physical Exam Narrative Exam Narrative: Afebrile. Vital signs noted. HEENT: Normocephalic. Atraumatic. PERRL, EOMI. Neck soft and supple. No point tenderness or step off. Cardiovascular: Regular rate and rhythm. No murmurs, rubs, or gallops appreciated. Respiratory: No tachypnea. Lungs clear to auscultation bilaterally. Gastrointestinal: Abdomen soft, nontender, with normoactive bowel sounds. No rebound or guarding. Neurological: Awake. Alert. Nonfocal, nonlateralizing. Cerebellar functioning normal as tested with [id number]. Skin: No rash. Normal color. No pallor. Musculoskeletal: No pedal edema. Full range of motion extremities. Const Vital Signs: 09/06/21 16:45 09/06/21 17:15 09/06/21 18:44 Temperature 97 F L Temperature Source Temporal Pulse Rate 74 64 Pulse Rate [Lying] 78 Pulse Rate [Sitting (for 1 minute prior to obtaining)] 93 Pulse Rate [Standing (for 1 minute prior to obtaining)] 87 Respiratory Rate 18 17 Respiratory Effort Respiratory Pattern Blood Pressure 130/90 H 138/77 H Blood Pressure [Lying] 158/90 H Blood Pressure [Sitting (for 1 minute prior to obtaining)] 172/94 H Blood Pressure [Standing (for 1 minute prior to obtaining)] 156/96 H Blood Pressure Mean 103 97 Blood Pressure Mean [Lying] 112 Blood Pressure Mean [Sitting (for 1 minute prior to obtaining)] 120 Blood Pressure Mean [Standing (for 1 minute prior to obtaining)] 116 Pulse Ox 99 96 Oxygen Delivery Method Room Air Room Air 09/06/21 18:45 09/06/21 20:10 Temperature Temperature Source Pulse Rate 77 Pulse Rate [Lying] Pulse Rate [Sitting (for 1 minute prior to obtaining)] Pulse Rate [Standing (for 1 minute prior to obtaining)] Respiratory Rate 18 Respiratory Effort Normal Non-Labored Respiratory Pattern Normal Blood Pressure Blood Pressure [Lying] Blood Pressure [Sitting (for 1 minute prior to obtaining)] Blood Pressure [Standing (for 1 minute prior to obtaining)] Blood Pressure Mean Blood Pressure Mean [Lying] Blood Pressure Mean [Sitting (for 1 minute prior to obtaining)] Blood Pressure Mean [Standing (for 1 minute prior to obtaining)] Pulse Ox 100 Oxygen Delivery Method Room Air MDM MDM MDM Narrative Medical decision making narrative: Comprehensive work-up was pursued. Orthostatics will be obtained. It sounds more as if she is having orthostatic near syncope as she states its after she has been lying down and goes to sit up. EKG demonstrates normal sinus rhythm at 71 bpm without ectopy or acute ST changes. No STEMI. She has a slightly elevated white count of 11.8 which I think is nonspecific, normal hemoglobin of 12.1, hematocrit 37.2. Platelet count normal at 233. BUN elevated at 22 with a creatinine of 1.1 which may be mild dehydration. Orthostatics reported negative by RN. LFTs are grossly unremarkable. Glucose normal at 105 with a normal anion gap of 6. High-sensitivity troponin normal at 14. Chest x-ray interpreted by myself shows no evidence of pneumonia or pneumothorax. Urinalysis has squamous epithelial cells but more WBCs with leukocyte Estrace 500. I will put her on Keflex for a week. She was told to get up slowly. I am unsure as to the true cause of her lightheadedness and near syncope. I do not feel a CT of the brain is indicated. Her neurological examination is nonfocal and nonlateralizing. At this point in time, she will be discharged to follow-up with her primary care physician. Return instructions to the emergency department were reviewed. Disposition is discharged home in stable condition. Lab Data Attestation: I reviewed the patient's lab results. Labs: Laboratory Results - last 24 hr 09/06/21 09/06/21 09/06/21 16:55 16:55 17:33 WBC 11.8 H RBC 3.98 L Hgb 12.1 Hct 37.2 MCV 93.5 MCH 30.4 MCHC 32.5 RDW Std Deviation 46.5 H RDW Coeff of [place] 13.6 Plt Count 233 MPV 10.0 Immature Gran % (Auto) 0.300 Neut % (Auto) 66.4 Lymph % (Auto) 23.1 [place] % (Auto) 5.8 Eos % (Auto) 4.1 Baso % (Auto) 0.3 Absolute Neuts (auto) 7.8 H Absolute Lymphs (auto) 2.72 Nucleated RBC % 0 Sodium 139 Potassium 4.2 Chloride 105 Carbon Dioxide 28.0 Anion Gap 6 BUN 22 H Creatinine 1.11 H Estim Creat Clear Calc 35.17 Est GFR (MDRD) Af Amer 62 Est GFR (MDRD) Non-Af 51 L BUN/Creatinine Ratio 19.8 Glucose 105 Calcium 10.5 H Total Bilirubin 0.50 AST 15 ALT 23 Alkaline Phosphatase 77 Troponin I High Sens 14 Total Protein 7.0 Albumin 3.4 Globulin 3.6 Albumin/Globulin Ratio 0.9 Urine Color Urine Clarity Urine pH Ur Specific [place] Urine Protein Urine Glucose (UA) Urine Ketones Urine Occult Blood Urine Nitrite Urine Bilirubin Urine Urobilinogen Ur Leukocyte Esterase Urine RBC Urine WBC Ur Squamous Epith Cells Urine Bacteria Urine Mucus POC Glucose 105 09/06/21 20:07 WBC RBC Hgb Hct MCV MCH MCHC RDW Std Deviation RDW Coeff of [place] Plt Count MPV Immature Gran % (Auto) Neut % (Auto) Lymph % (Auto) [place] % (Auto) Eos % (Auto) Baso % (Auto) Absolute Neuts (auto) Absolute Lymphs (auto) Nucleated RBC % Sodium Potassium Chloride Carbon Dioxide Anion Gap BUN Creatinine Estim Creat Clear Calc Est GFR (MDRD) Af Amer Est GFR (MDRD) Non-Af BUN/Creatinine Ratio Glucose Calcium Total Bilirubin AST ALT Alkaline Phosphatase Troponin I High Sens Total Protein Albumin Globulin Albumin/Globulin Ratio Urine Color Yellow Urine Clarity Cloudy Urine pH 5.0 Ur Specific [place] 1.020 Urine Protein 100 H Urine Glucose (UA) Normal Urine Ketones Negative Urine Occult Blood 50 H Urine Nitrite Positive H Urine Bilirubin Negative Urine Urobilinogen Normal Ur Leukocyte Esterase 500 H Urine RBC 0-5 SEEN Urine WBC 25-50 SEEN Ur Squamous Epith Cells 10-25 SEEN Urine Bacteria 3+ Urine Mucus 0 SEEN POC Glucose Radiography Diagnostic Testing: Clinical Impression(s) from Imaging Studies Chest X-Ray 09/06/21 17:28 IMPRESSION: No acute cardiopulmonary process. Electronically Signed: Jalen Hammond MD at 17:46 EDT , Discharge Plan Triage Chief Complaint: Dizziness ED Provider: Luis Enrique Montelongo Dx/Rx/DC Orders Clinical Impression: Lightheadedness, Near syncope, UTI (urinary tract infection) Instructions: ED Dizziness, Uncertain Cause, ED Near-Fainting, Uncertain Cause, ED CYSTITIS Female Adult Prescriptions: New cephalexin 500 mg capsule 500 mg PO Q12 Qty: 14 0RF No Action aspirin [Adult Aspirin Regimen] 81 mg tablet,delayed release (DR/EC) 81 mg PO DAILY Qty: 90 3RF atorvastatin 80 mg tablet 80 mg PO QHS Qty: 90 3RF lisinopril 20 mg tablet 20 mg PO DAILY Qty: 90 3RF metoprolol tartrate 50 mg tablet 50 mg PO BID Qty: 180 3RF albuterol sulfate 90 mcg/actuation HFA aerosol inhaler 2 puff inhalation Q6H PRN metformin 1,000 MG tablet 1,000 mg PO BIDCM fluoxetine 10 MG capsule 10 mg PO DAILY acetaminophen 650 MG tablet extended release 1,300 mg PO DAILY PRN (Reason: Pain 1-10 Or Fever) allopurinol 300 MG tablet 300 mg PO DAILY amlodipine 5 mg tablet 5 mg PO DAILY Qty: 90 3RF cholecalciferol (vitamin D3) 1,250 mcg (50,000 unit) capsule 1,250 mcg PO QWEEK Qty: 14 0RF dulaglutide 0.75 mg/0.5 mL pen injector 0.75 mg subcut QWEEK Qty: 2 1RF Primary Care Provider: Carole Sheehan Referrals: Carole Sheehan MD [Primary Care Provider] - 3-5 Days Disposition Disposition: Home, Self Care
[2021-09-06 17:15] VITALS: BP 156/96; BP 158/90; BP 172/94; PULSE 78; PULSE 87; PULSE 93
[2021-09-06] MEDS: 0.9% Normal Saline 1,000 ML 1000 ML IV (17:23)
--- NOTE | 2021-09-06 17:28 | RAD_ITS ---
STUDY: X-RAY CHEST REASON FOR EXAM: Female, 76 years old. CAD , pain TECHNIQUE: 1 view COMPARISON: 06/08/2020 FINDINGS: Cardiomediastinal silhouette is unremarkable. Costophrenic angles are sharp. Lungs are clear. The trachea is midline. There is no pneumothorax. The bones are grossly intact. RAD/Chest 1 View (Portable) IMPRESSION: No acute cardiopulmonary process. Electronically Signed: Jalen Hammond MD at 17:46 EDT ,
[2021-09-06 17:31] LABS: Absolute Lymphocyte Count 2.72 X10^3/uL (0.83-4.51); Absolute Neutrophil Count 7.8 X10^3/uL (2.0-7.7); Basophil# 0.04 X10^3/uL; Basophil% 0.3 % (0-1); Eosinophil# 0.48 X10^3/uL; Eosinophils% 4.1 % (0-5); Hematocrit 37.2 % (37-47); Hemoglobin 12.1 g/dL (12.0-15.0); Lymphocyte # 2.72 X10^3/ul (0.83-4.51); Lymphocyte % 23.1 % (19-41); Mean Corp Hgb Conc 32.5 g/dL (32-36); Mean Corpuscular Hgb 30.4 pg (27.0-32.0); Mean Corpuscular Volume 93.5 fL (81-99); Monocyte# 0.68 X10^3/uL; Monocyte% 5.8 % (0-10); NRBC Flagged by Analyzer 0 % (0-5); Neutrophil # 7.81 X10^3/uL (2.7-7.7); Neutrophil % 66.4 % (47-70); Platelet Count 233 K/mm3 (150-450); RBC Distribution Width CV 13.6 % (11.6-14.6); RBC Distribution Width SD 46.5 fl (35.1-43.9); Red Blood Count 3.98 M/mm3 (4.2-5.4); White Blood Count 11.8 K/mm3 (4.4-11.0)
[2021-09-06 17:40] LABS: Bedside Glucose 105 mg/dL (74-106)
[2021-09-06 17:54] LABS: ALB/GLOB Ratio 0.9 RATIO (0.9-2.4); AST(SGOT) 15 U/L (15-37); Alanine Aminotransfer ALT/SGPT 23 U/L (13-56); Albumin, Serum 3.4 g/dL (3.2-5.0); Alkaline Phosphatase 77 U/L (45-117); Anion Gap 6 (5-15); BUN 22 mg/dL (7-18); BUN/Creat Ratio 19.8 RATIO (10-20); Calcium,Total 10.5 mg/dL (8.5-10.1); Chloride 105 mmol/L (98-107); Creatinine, Serum 1.11 mg/dL (0.55-1.02); EST Glomerular Filtration Rate 51 mL/min (>60); Est Glom Filt Rate - Afr Amer 62 mL/min (>60); Estimated Creatinine Clearance 35.17 ml/min; Globulin 3.6 g/dL (2.2-4.2); Glucose 105 mg/dL (74-106); Potassium 4.2 mmol/L (3.5-5.1); Sodium Level 139 mmol/L (136-145); Troponin-I HS 14 pg/mL (3.0-54.0)
[2021-09-06 18:44] VITALS: BP 138/77; PULSE 64; RESP 17; O2SAT 96
[2021-09-06] MEDS: 0.9% Normal Saline 1,000 ML 999 ML IV (19:35)
[2021-09-06 20:10] VITALS: PULSE 77; RESP 18; O2SAT 100
[2021-09-06 20:13] LABS: Mucous, Urine 0 SEEN /hpf (<or=2+)
[2021-09-06 20:15] LABS: Color, Urine Yellow (Yellow); Glucose, Dipstick Normal (Normal); Ketone-Dipstick Negative (Negative); Leukocyte Esterase-Dipstick 500 /ul (Negative); Nitrite-Dipstick Positive (Negative); Occult Blood-Urine 50 /ul (Negative); Protein-Dipstick 100 mg/dl (Negative); Urine Bilirubin Dipstick Negative (Negative); Urine Clarity Cloudy (Clear); Urine Urobilinogen Normal (Normal)
[2021-09-06 21:08] LABS: Bacteria 3+ /hpf (None Seen); Red Blood Cells-Urine 0-5 SEEN /hpf (0-5); Squamous Epithelial Cells - UA 10-25 SEEN /hpf (5-10); White Blood Cells 25-50 SEEN /hpf (0-5)
[2021-09-06] MEDS: Cephalexin 250 MG Capsule 500 MG PO (22:05)
== END 2021-09-06 22:08 | disposition home or self-care (01) ==
PROVIDERS: Emergency Provider Emergency Medicine; PCP Internal Medicine; Visit Provider Emergency Medicine
DX: R42 Dizziness and giddiness (principal); R55 Syncope and collapse; N39.0 Urinary tract infection, site not specified; I25.10 Atherosclerotic heart disease of native coronary artery without angina pectoris; I25.2 Old myocardial infarction
CPT/HCPCS: 71045; 80053; 81001; 82962; 84484; 85025; 93005; 96360; 96361; 99285; J7030; A4216

== ENCOUNTER → 2023-04-11 | Outpatient (CLI) | payer MEDICARE, SELFPAY ==
[2023-04-11 16:49] LABS: Absolute Lymphocyte Count 2.12 X10^3/uL (0.83-4.51); Absolute Neutrophil Count 6.9 X10^3/uL (2.0-7.7); Basophil# 0.06 X10^3/uL; Basophil% 0.6 % (0-1); Eosinophil# 0.93 X10^3/uL; Eosinophils% 8.7 % (0-5); Hematocrit 36.1 % (37-47); Hemoglobin 11.2 g/dL (12.0-15.0); Lymphocyte # 2.12 X10^3/ul (0.83-4.51); Lymphocyte % 19.9 % (19-41); Mean Corpuscular Volume 93.5 fL (81-99); Mean Platelet Vol. 10.4 fl (6.2-12.0); Monocyte# 0.62 X10^3/uL; Monocyte% 5.8 % (0-10); NRBC Flagged by Analyzer 0 % (0-5); Neutrophil # 6.88 X10^3/uL (2.7-7.7); Neutrophil % 64.7 % (47-70); Platelet Count 253 K/mm3 (150-450); RBC Distribution Width CV 14.1 % (11.6-14.6); RBC Distribution Width SD 47.2 fl (35.1-43.9); Red Blood Count 3.86 M/mm3 (4.2-5.4); White Blood Count 10.6 K/mm3 (4.4-11.0)
[2023-04-11 17:03] LABS: ALB/GLOB Ratio 0.9 RATIO (0.9-2.4); AST(SGOT) 13 U/L (15-37); Alanine Aminotransfer ALT/SGPT 17 U/L (13-56); Albumin, Serum 3.3 g/dL (3.2-5.0); Alkaline Phosphatase 85 U/L (45-117); Anion Gap 5 (5-15); BUN 28 mg/dL (7-18); BUN/Creat Ratio 22.2 RATIO (10-20); Calcium,Total 10.5 mg/dL (8.5-10.1); Chloride 110 mmol/L (98-107); Cholesterol 155 mg/dL (200); Creatinine, Serum 1.26 mg/dL (0.55-1.02); EST Glomerular Filtration Rate 44 mL/min (>60); Est Glom Filt Rate - Afr Amer 53 mL/min (>60); Globulin 3.7 g/dL (2.2-4.2); Glucose 146 mg/dL (74-106); High Density Lipoprotein 47 mg/dL; Potassium 4.3 mmol/L (3.5-5.1); Sodium Level 140 mmol/L (136-145); Triglycerides 260 mg/dL; Uric Acid 3.3 mg/dL (2.6-6.0); Very Low Density Lipoprotein 52 mg/dL (5-40)
== END | disposition home or self-care (01) ==
PROVIDERS: PCP Internal Medicine; Referring Provider Internal Medicine; Visit Provider Internal Medicine
DX: E78.5 Hyperlipidemia, unspecified (principal); E11.9 Type 2 diabetes mellitus without complications
CPT/HCPCS: 36415; 80053; 80061; 84550; 85025

== ENCOUNTER → 2023-07-30 | Outpatient (CLI) | payer MEDICARE, SELFPAY ==
[2023-07-30 16:53] LABS: Anion Gap 5 (5-15); BUN 26 mg/dL (7-18); BUN/Creat Ratio 15.3 RATIO (10-20); Calcium,Total 9.9 mg/dL (8.5-10.1); Chloride 109 mmol/L (98-107); EST Glomerular Filtration Rate 31 mL/min (>60); Est Glom Filt Rate - Afr Amer 38 mL/min (>60); Glucose 116 mg/dL (74-106); Potassium 3.9 mmol/L (3.5-5.1); Sodium Level 141 mmol/L (136-145)
[2023-07-30 17:04] LABS: Vitamin D,25 Hydroxy 25.2 ng/mL
[2023-07-30 17:12] LABS: PTHIN 127.7 pg/mL (18.4-80.1)
== END | disposition home or self-care (01) ==
LOC: BIMLAB 15:42
PROVIDERS: PCP Internal Medicine; Visit Provider Internal Medicine
DX: E83.52 Hypercalcemia (principal); I10 Essential (primary) hypertension
CPT/HCPCS: 36415; 80048; 82306; 83970

== ENCOUNTER 2023-08-21 12:22 | Emergency (ER) | payer MEDICARE, SELFPAY ==
[2023-08-21] VITALS (8 sets, daily range): BP systolic 174–209; BP diastolic 89–104; PULSE 81–88; RESP 12–20; TEMP 36.1–36.6; O2SAT 93–98; BMI 40.1
--- NOTE | 2023-08-21 12:45 | ED.VIS.DYS ---
HPI History of Present Illness Chief Complaint: Shortness of Breath [facility] Medical History (Updated 07/30/23 @ 15:[address] Carole Sheehan MD) Bilateral lower extremity edema Post-viral cough syndrome Hypercalcemia Health care maintenance Vertigo Post-menopausal Gout Obesity Essential (primary) hypertension Type 2 diabetes mellitus History of non-ST elevation myocardial infarction (NSTEMI) (06/08/20) Atherosclerotic heart disease of [place] coronary artery without angina pectoris Dizziness Lightheadedness Headache Home Medications ?Medication ?Instructions ?Recorded ?Last Taken ?Type acetaminophen 650 mg 1,300 mg PO DAILY PRN Pain 1-10 Or 06/08/20 2 Days Ago History tablet,extended release Fever ~06/06/20 allopurinol 300 mg tablet 300 mg PO DAILY GOUT 06/08/20 06/08/20 History aspirin 81 mg tablet,delayed 81 mg PO DAILY #90 tabs 07/26/20 Unknown Rx release (Adult Aspirin Regimen) albuterol sulfate 90 mcg/actuation 2 puff inhalation Q6H PRN 03/01/21 Unknown History aerosol inhaler meclizine 25 mg tablet 25 mg PO BID PRN vertigo #60 tabs 09/21/21 Unknown Rx atorvastatin 80 mg tablet 80 mg PO QHS #90 tabs 10/02/22 Unknown Rx lisinopril 20 mg tablet 20 mg PO DAILY BP #90 tabs 10/02/22 Unknown Rx metoprolol tartrate 50 mg tablet 50 mg PO BID #180 tabs 11/10/22 Unknown Rx dulaglutide 0.75 mg/0.5 mL 0.75 mg (0.5 mL) subcut QWEEK 3 04/11/23 Unknown Rx subcutaneous pen injector months #6.5 mL fluoxetine 10 mg capsule See Rx Instructions .Route 04/11/23 Unknown Rx .COMPLEX #90 caps metformin 1,000 mg tablet 1,000 mg PO BIDCM DM #180 tabs 04/11/23 Unknown Rx amlodipine 5 mg tablet 5 mg PO DAILY #90 tabs 06/21/23 Unknown Rx cholecalciferol (vitamin D3) 125 125 mcg PO DAILY #90 caps 07/31/23 Unknown Rx mcg (5,000 unit) capsule Allergy/AdvReac Type Severity Reaction Status Date / Time No Known Allergies Allergy Verified 08/21/23 12:27 Family History Father Myocardial infarction, Onset Age: 52 Other Anxiety Arthritis Asthma Diabetes Hypertension Surgical History History of hernia repair History of cholecystectomy History of left heart catheterization (06/09/20) Social History Smoking Status: Never smoker alcohol intake: never substance use type: does not use what type of physical activity do you participate in: bicycling frequency: 1-2 times per week EXAM Physical Exam Const Vital Signs: 08/21/23 12:23 08/21/23 12:26 08/21/23 12:47 Temperature 97.5 F L 97.5 F L Temperature Source Temporal Temporal Pulse Rate 87 87 Respiratory Rate 19 H 19 H Respiratory Effort Blood Pressure 200/89 H 200/89 H Blood Pressure Mean 126 126 Pulse Ox 98 98 96 Oxygen Delivery Method Room Air Room Air Room Air 08/21/23 12:57 08/21/23 13:42 08/21/23 14:00 Temperature 97.8 F 97 F L Temperature Source Oral Temporal Pulse Rate 85 88 Respiratory Rate 12 19 H Respiratory Effort Normal Blood Pressure 209/104 H 209/99 H Blood Pressure Mean 139 135 Pulse Ox 98 93 Oxygen Delivery Method Room Air Room Air Room Air 08/21/23 14:35 Temperature Temperature Source Pulse Rate 81 Respiratory Rate 20 H Respiratory Effort Blood Pressure 174/98 H Blood Pressure Mean 123 Pulse Ox 98 Oxygen Delivery Method Room Air MDM MDM MDM Narrative Medical decision making narrative: HISTORY OF PRESENT ILLNESS: 78-year-old female presents with shortness of breath. She states She had increased shortness of breath last couple days. Not hot flashes. Notes viral illness since May. Denies sick contacts. Denies fever or chills. Denies bleeding diathesis. Denies chest pain. The patient denies recent surgery in the last 4 weeks or immobilization in the last 3 days, denies previous diagnosis of DVT or PE, hemoptysis, unilateral leg swelling or malignancy with treatment the last 6 months or palliative. No estrogen use noted. REVIEW OF SYSTEMS: Pertinent positives: Shortness of breath, leg swelling Pertinent negatives: Chest pain PHYSICAL EXAM: Nursing triage notes reviewed, Vital signs reviewed Constitutional: please see mdm HENT: MMM Eyes: Pupils equal round and reactive to light, Extraocular muscles intact Neck: No stridor, no JVD, full neck ROM Lungs: Clear to auscultation, No wheezing or rales. No increased work of breathing, no conversational dyspnea, no accessory muscle use, no nasal flaring. No respiratory distress noted Heart: Regular rate and rhythm, No murmurs, No rubs and No gallops, 2+ distal pulses (radial, femoral, posterior tibial) in all extremities Abdomen: Soft, there is no tenderness, rigidity, rebound or guarding, no obvious peritoneal signs, no palpable pulsatile abdominal masses, no auscultated abdominal bruit : No CVAT Extremities: 1+ pitting edema Neuro: No focal neurological deficits, cranial nerves II through XII intact, 5/5 strength in all extremities. Intact sensation to light touch in all extremities, 2+ reflexes bilateral patella tendons. Normal gait. No ataxia. Skin: No rash or lesions noted MEDICAL DECISION MAKING: Chief Complaint: Shortness of breath External records reviewed: Last echocardiogram 2020 shows an ejection fraction of 65%, mild stage I diastolic dysfunction Factors affecting care history of type 2 diabetes, postviral syndrome, ACS, hypertension Social determinants of health: denies smoking History obtained from others: Patient's sister Consults: none MDM Narrative: Patient was initially hypertensive otherwise afebrile and nontoxic-appearing. Exam without focal cardio pulmonary abnormalities. Noted 1+ pitting edema bilateral lower extremities. No calf tenderness or stigmata of VTE noted on exam I considered the following differential diagnosis: CHF exacerbation, ACS, arrhythmia, anemia, electrolyte disturbance ALL IMAGES (IF OBTAINED) HAVE BEEN PERSONALLY REVIEWED AND INTERPRETED BY MYSELF. EKG shows rate controlled A-fib, normal axis, no intervals, no STEMI High-sensitivity troponin is negative, no evidence of myocardial ischemia BNP slightly elevated consistent with volume overload and increased ventricular stretch CBC without evidence of leukocytosis, noted baseline anemia, no thrombocytopenia BMP without significant electrolyte normalities, noted CKD, COVID flu influenza test negative The synthesis of the patient's history, physical exam, labs images suggest no acute life-limiting etiology. Specifically no signs of PE, CHF exacerbation, ACS. Noted baseline rate controlled atrial fibrillation. No signs of significant anemia. Patient was ambulated with reassuring oxygen levels 93%. No indication for admission at this time likely some from ongoing inflammation and as such we will give prednisone however patient follow with her primary care physician. The patient and/or family, caregivers express understanding. The patient and/or family, caregivers agrees with the plan. Shared decision making: I will have a discussion with the patient and or visitors regarding risk/benefits of further testing or admission. They will be made aware of of the risk/benefits inherent in this decision they will be given the opportunity to voice understanding. Total critical care time today provided was at least 0 minutes. This excludes separately billable procedures. Critical care time (if documented) is secondary to the patient having high probability of clinically significant/life threatening deterioration in the patient's condition which required my urgent intervention. Impression: 1. Dyspnea 2. Rate controlled atrial fibrillation 3. CKD 4. Chronic anemia Dispo: Discharge home This note was generated with [employer] dictation software. It may contain incorrect words, spelling, and punctuation that were not noted in review of the chart prior to signing. Lab Data Labs: Laboratory Results - last 24 hr 08/21/23 08/21/23 12:50 13:14 WBC 8.3 RBC 3.34 L Hgb 9.5 L Hct 30.8 L MCV 92.2 MCH 28.4 MCHC 30.8 L RDW Std Deviation 50.1 H RDW Coeff of [place] 14.8 H Plt Count 217 MPV 9.7 Immature Gran % (Auto) 0.200 Neut % (Auto) 76.7 H Lymph % (Auto) 12.3 L [place] % (Auto) 6.8 Eos % (Auto) 3.5 Baso % (Auto) 0.5 Absolute Neuts (auto) 6.3 Absolute Lymphs (auto) 1.02 Nucleated RBC % 0 Sodium 141 Potassium 3.9 Chloride 111 H Carbon Dioxide 24.0 Anion Gap 6 BUN 26 H Creatinine 1.44 H Estim Creat Clear Calc 33.91 Est GFR (MDRD) Af Amer 46 L Est GFR (MDRD) Non-Af 38 L BUN/Creatinine Ratio 18.1 Glucose 140 H Calcium 10.2 H Troponin I High Sens 12 B-Natriuretic Peptide 225.4 H Radiography Diagnostic Testing: Clinical Impression(s) from Imaging Studies Chest X-Ray 08/21/23 12:53 IMPRESSION: There is blunting of the left costophrenic angle with left basilar atelectasis. Electronically Signed: Alex Polo MD at 13:22 EDT , Discharge Plan Triage Chief Complaint: Shortness of Breath ED Provider: Viraj Hung Dx/Rx/DC Orders Prescriptions: No Action aspirin [Adult Aspirin Regimen] 81 mg tablet,delayed release (DR/EC) 81 mg PO DAILY Qty: 90 3RF albuterol sulfate 90 mcg/actuation HFA aerosol inhaler 2 puff inhalation Q6H PRN meclizine 25 mg tablet 25 mg PO BID PRN (Reason: vertigo) Qty: 60 1RF metformin 1,000 mg tablet 1,000 mg PO BIDCM Qty: 180 1RF fluoxetine 10 mg capsule See Rx Instructions .ROUTE .COMPLEX Qty: 90 1RF Dose Instruction: TAKE 1 CAPSULE BY MOUTH EVERY DAY Rx Instructions: TAKE 1 CAPSULE BY MOUTH EVERY DAY dulaglutide 0.75 mg/0.5 mL pen injector 0.75 mg subcut QWEEK 90 Days Qty: 6.5 1RF acetaminophen 650 MG tablet extended release 1,300 mg PO DAILY PRN (Reason: Pain 1-10 Or Fever) allopurinol 300 MG tablet 300 mg PO DAILY atorvastatin 80 mg tablet 80 mg PO QHS Qty: 90 3RF lisinopril 20 mg tablet 20 mg PO DAILY Qty: 90 3RF metoprolol tartrate 50 mg tablet 50 mg PO BID Qty: 180 3RF amlodipine 5 mg tablet 5 mg PO DAILY Qty: 90 3RF cholecalciferol (vitamin D3) 125 mcg (5,000 unit) capsule 125 mcg PO DAILY Qty: 90 1RF Primary Care Provider: Carole Sheehan Referrals: Carole Sheehan MD [Primary Care Provider] - Print Language: Mozambican
--- NOTE | 2023-08-21 12:47 | EKG12_ITS ---
Test Reason : SOB Blood Pressure : / mmHG Vent. Rate : 080 BPM Atrial Rate : 000 BPM P-R Int : 000 ms QRS Dur : 072 ms QT Int : 396 ms P-R-T Axes : 000 023 041 degrees QTc Int : 456 ms Atrial fibrillation CAN NOT RULE OUT Septal infarct , age undetermined Abnormal ECG Confirmed by Victor Hugo Garcia ([id number]), loan expeditor JAKI JONES ([id number]) on 08/22/2023 2:53:41 PM Referred By: Confirmed By:Victor Hugo Garcia
--- NOTE | 2023-08-21 12:53 | RAD_ITS ---
STUDY: X-RAY CHEST REASON FOR EXAM: Female, 78 years old. 3 day history of increasing shortness of breath. TECHNIQUE: Single AP portable view of the chest. COMPARISON: Comparison is made with prior study of September 06, 2021. FINDINGS: EKG electrodes are seen. There is elevation of the right hemidiaphragm. There is blunting of the left costo phrenic angle with left basilar atelectasis. There is no demonstrated pleural abnormality. There is borderline cardiomegaly. Normal mediastinum and alli. Normal visualized pulmonary arteries. Normal visualized aortic arch and descending thoracic aorta. There are diffuse degenerative changes of the visualized thoracic spine. Normal visualized ribs, clavicles, and shoulders. There is no demonstrated abnormality of the visualized soft tissue structures of the upper abdomen. RAD/Chest 1 View (Portable) IMPRESSION: There is blunting of the left costophrenic angle with left basilar atelectasis. Electronically Signed: Alex Polo MD at 13:22 EDT ,
[2023-08-21 13:02] LABS: Absolute Lymphocyte Count 1.02 X10^3/uL (0.83-4.51); Absolute Neutrophil Count 6.3 X10^3/uL (2.0-7.7); Basophil# 0.04 X10^3/uL; Basophil% 0.5 % (0-1); Eosinophil# 0.29 X10^3/uL; Eosinophils% 3.5 % (0-5); Hematocrit 30.8 % (37-47); Hemoglobin 9.5 g/dL (12.0-15.0); Lymphocyte # 1.02 X10^3/ul (0.83-4.51); Lymphocyte % 12.3 % (19-41); Mean Corp Hgb Conc 30.8 g/dL (32-36); Mean Corpuscular Hgb 28.4 pg (27.0-32.0); Mean Corpuscular Volume 92.2 fL (81-99); Mean Platelet Vol. 9.7 fl (6.2-12.0); Monocyte# 0.56 X10^3/uL; Monocyte% 6.8 % (0-10); NRBC Flagged by Analyzer 0 % (0-5); Neutrophil # 6.33 X10^3/uL (2.7-7.7); Neutrophil % 76.7 % (47-70); Platelet Count 217 K/mm3 (150-450); RBC Distribution Width CV 14.8 % (11.6-14.6); RBC Distribution Width SD 50.1 fl (35.1-43.9); Red Blood Count 3.34 M/mm3 (4.2-5.4); White Blood Count 8.3 K/mm3 (4.4-11.0)
[2023-08-21 13:25] LABS: Anion Gap 6 (5-15); BUN 26 mg/dL (7-18); BUN/Creat Ratio 18.1 RATIO (10-20); Calcium,Total 10.2 mg/dL (8.5-10.1); Chloride 111 mmol/L (98-107); Creatinine, Serum 1.44 mg/dL (0.55-1.02); EST Glomerular Filtration Rate 38 mL/min (>60); Est Glom Filt Rate - Afr Amer 46 mL/min (>60); Estimated Creatinine Clearance 33.91 ml/min; Glucose 140 mg/dL (74-106); Potassium 3.9 mmol/L (3.5-5.1); Sodium Level 141 mmol/L (136-145); Troponin-I HS 12 pg/mL (3.0-54.0)
[2023-08-21 13:35] LABS: BNP,B-Type NATRIURETIC PEPTIDE 225.4 pg/mL (0-100)
== END 2023-08-21 14:53 | disposition home or self-care (01) ==
PROVIDERS: Emergency Provider Emergency Medicine; PCP Internal Medicine; Visit Provider Emergency Medicine
DX: R06.00 Dyspnea, unspecified (principal); I48.91 Unspecified atrial fibrillation; E11.22 Type 2 diabetes mellitus with diabetic chronic kidney disease; I12.9 Hypertensive chronic kidney disease with stage 1 through stage 4 chronic kidney disease, or unspecified chronic kidney disease; N18.9 Chronic kidney disease, unspecified; I25.2 Old myocardial infarction
CPT/HCPCS: 71045; 80048; 83880; 84484; 85025; 87631; 93005; 99283; A4216

== ENCOUNTER → 2023-11-07 | Outpatient (CLI) | payer MEDICARE, SELFPAY ==
[2023-11-07 16:52] LABS: Absolute Lymphocyte Count 1.12 X10^3/uL (0.83-4.51); Absolute Neutrophil Count 6.3 X10^3/uL (2.0-7.7); Basophil# 0.05 X10^3/uL; Basophil% 0.6 % (0-1); Eosinophils% 3.7 % (0-5); Hemoglobin 10.2 g/dL (12.0-15.0); Lymphocyte # 1.12 X10^3/ul (0.83-4.51); Lymphocyte % 13.7 % (19-41); Mean Corpuscular Hgb 27.5 pg (27.0-32.0); Mean Corpuscular Volume 91.6 fL (81-99); Mean Platelet Vol. 10.4 fl (6.2-12.0); Monocyte# 0.37 X10^3/uL; Monocyte% 4.5 % (0-10); NRBC Flagged by Analyzer 0 % (0-5); Neutrophil % 77.1 % (47-70); Platelet Count 263 K/mm3 (150-450); RBC Distribution Width CV 15.9 % (11.6-14.6); RBC Distribution Width SD 52.7 fl (35.1-43.9); Red Blood Count 3.71 M/mm3 (4.2-5.4); White Blood Count 8.2 K/mm3 (4.4-11.0)
[2023-11-07 17:10] LABS: BNP,B-Type NATRIURETIC PEPTIDE 249.6 pg/mL (0-100)
[2023-11-07 17:23] LABS: ALB/GLOB Ratio 0.7 RATIO (0.9-2.4); AST(SGOT) 18 U/L (15-37); Alanine Aminotransfer ALT/SGPT 19 U/L (13-56); Albumin, Serum 2.8 g/dL (3.2-5.0); Alkaline Phosphatase 84 U/L (45-117); Anion Gap 7 (5-15); BUN 23 mg/dL (7-18); BUN/Creat Ratio 15.5 RATIO (10-20); Chloride 111 mmol/L (98-107); Creatinine, Serum 1.48 mg/dL (0.55-1.02); EST Glomerular Filtration Rate 36 mL/min (>60); Est Glom Filt Rate - Afr Amer 44 mL/min (>60); Ferritin 27 ng/mL (8-252); Globulin 4.2 g/dL (2.2-4.2); Glucose 132 mg/dL (74-106); Iron 50 ug/dL (50-170); Iron Binding Capacity,Total 350 ug/dL (250-450); Potassium 3.8 mmol/L (3.5-5.1); Sodium Level 142 mmol/L (136-145); T4 Free Direct 1.02 ng/dL (0.76-1.46)
[2023-11-07 18:20] LABS: PTHIN 76.5 pg/mL (18.4-80.1)
[2023-11-07 18:35] LABS: Vitamin D,25 Hydroxy 36.7 ng/mL
== END | disposition home or self-care (01) ==
LOC: BIMLAB 15:09
PROVIDERS: PCP Internal Medicine; Referring Provider Internal Medicine; Visit Provider Internal Medicine
DX: E83.52 Hypercalcemia (principal); D64.9 Anemia, unspecified; R06.02 Shortness of breath
CPT/HCPCS: 36415; 80053; 82306; 82728; 83540; 83550; 83880; 83970; 84439; 84443; 85025

== ENCOUNTER → 2024-02-11 | Outpatient (CLI) | payer MEDICARE, SELFPAY ==
[2024-02-11 16:23] LABS: Absolute Lymphocyte Count 1.27 X10^3/uL (0.83-4.51); Absolute Neutrophil Count 6.3 X10^3/uL (2.0-7.7); Basophil# 0.04 X10^3/uL; Basophil% 0.5 % (0-1); Eosinophil# 0.52 X10^3/uL; Hematocrit 32.9 % (37-47); Hemoglobin 9.8 g/dL (12.0-15.0); Lymphocyte # 1.27 X10^3/ul (0.83-4.51); Lymphocyte % 14.6 % (19-41); Mean Corp Hgb Conc 29.8 g/dL (32-36); Mean Corpuscular Hgb 27.5 pg (27.0-32.0); Mean Corpuscular Volume 92.2 fL (81-99); Mean Platelet Vol. 10.1 fl (6.2-12.0); Monocyte# 0.56 X10^3/uL; Monocyte% 6.4 % (0-10); NRBC Flagged by Analyzer 0 % (0-5); Neutrophil # 6.29 X10^3/uL (2.7-7.7); Neutrophil % 72.3 % (47-70); Platelet Count 224 K/mm3 (150-450); RBC Distribution Width CV 15.2 % (11.6-14.6); RBC Distribution Width SD 50.8 fl (35.1-43.9); Red Blood Count 3.57 M/mm3 (4.2-5.4); White Blood Count 8.7 K/mm3 (4.4-11.0)
[2024-02-11 16:35] LABS: Anion Gap 6 (5-15); BUN 31 mg/dL (7-18); Calcium,Total 10.3 mg/dL (8.5-10.1); Chloride 111 mmol/L (98-107); Creatinine, Serum 1.72 mg/dL (0.55-1.02); EST Glomerular Filtration Rate 31 mL/min (>60); Est Glom Filt Rate - Afr Amer 37 mL/min (>60); Glucose 130 mg/dL (74-106); Potassium 3.8 mmol/L (3.5-5.1); Sodium Level 142 mmol/L (136-145)
[2024-02-12 09:56] LABS: Vitamin B12 292 pg/mL (211-911); Vitamin D,25 Hydroxy 33.2 ng/mL
== END | disposition home or self-care (01) ==
LOC: BIMLAB 14:39
PROVIDERS: PCP Internal Medicine; Referring Provider Internal Medicine; Visit Provider Internal Medicine
DX: E83.52 Hypercalcemia (principal); E11.9 Type 2 diabetes mellitus without complications; D64.9 Anemia, unspecified
CPT/HCPCS: 36415; 80048; 82306; 82607; 85025

== ENCOUNTER 2024-06-13 11:47 | Inpatient (IN) | payer MEDICARE, SELFPAY ==
[2024-06-13] VITALS (12 sets, daily range): BP systolic 142–165; BP diastolic 65–104; PULSE 45–65; RESP 16–30; TEMP 36.3–36.8; O2SAT 93–98; BMI 35.6; BMI 33.2
--- NOTE | 2024-06-13 13:00 | EDS_ITS ---
HPI History of Present Illness Chief Complaint: Shortness of Breath Informant: patient Onset/Context/Timing Onset: Days (2) Context: gradual Timing: Continuous Quality: Positive for Dyspnea on exertion Worsened by: Exertion Relieved by: Rest Associated Symptoms Negative for cough, rhinorrhea, post nasal drip, ear pain, fever, sore throat, chills, sweats, clear sputum, white sputum, yellow sputum or green sputum Chest Pain: Positive for - (Heaviness) Narrative Narrative: Patient present with shortness of breath that has been getting worse over the past 2 days. Patient states it is gradually getting worse. Patient states her breathing is worse with any exertion. Patient states it is better with rest. Patient states she has some heaviness in her chest. Patient denies any cough. Patient denies any sore throat or rhinorrhea. Patient denies any fevers or chills. Patient states he did have an episode of diarrhea today. Patient denies any nausea or vomiting. Patient denies any diaphoresis. [facility] Medical History Abnormal EKG Arrhythmia Bilateral knee pain Stool incontinence Elevated brain natriuretic peptide (BNP) level Shortness of breath Anemia Bilateral lower extremity edema Post-viral cough syndrome Hypercalcemia Health care maintenance Vertigo Post-menopausal Gout Obesity Essential (primary) hypertension Type 2 diabetes mellitus History of non-ST elevation myocardial infarction (NSTEMI) (06/08/20) Atherosclerotic heart disease of [place] coronary artery without angina pectoris Dizziness Lightheadedness Headache Home Medications ?Medication ?Instructions ?Recorded ?Last Taken ?Type acetaminophen 650 mg 1,300 mg PO DAILY PRN Pain 1 -10 Or 06/08/20 2 Days Ago History tablet,extended release Fever ~06/06/20 allopurinol 300 mg tablet 300 mg PO DAILY GOUT 1 06/11/24 History aspirin 81 mg tablet,delayed 81 mg PO DAILY preventati ve #90 07/26/20 06/11/24 Rx release (Adult Aspirin Regimen) tabs meclizine 25 mg tablet 25 mg PO BID PRN vertigo #60 tabs 09/21/21 Unknown Rx fluoxetine 10 mg capsule See Rx Instructions .Route 0 11/06/23 06/11/24 Rx .COMPLEX #90 caps lisinopril 20 mg tablet 20 mg PO DAILY BP #90 tabs 0 11/06/23 06/11/24 Rx atorvastatin 80 mg tablet 80 mg PO QHS cholesterol #90 tabs 11/12/23 06/11/24 Rx metoprolol tartrate 50 mg tablet 50 mg PO BID #180 tab s 12/12/23 06/11/24 Rx albuterol sulfate 90 mcg/actuation 2 puff inhalation Q 6H PRN 04/10/24 Unknown Rx aerosol inhaler shortness of breath or [place] ing #8.5 grams metformin 1,000 mg tablet 1,000 mg PO BIDCM DM #180 ta bs 04/16/24 06/11/24 Rx amlodipine 5 mg tablet 5 mg PO DAILY #90 tabs 05/1206/11/24 Rx furosemide 20 mg tablet 20 mg PO DAILY duiuretic #90 tabs 05/12/24 06/11/24 Rx apixaban 5 mg tablet 5 mg PO BID blood thinner #1 80 tabs 05/19/24 06/11/24 Rx carboxymethylcellulose sodium 1 % 1 drp EACH EYE BID P RN dry eye(s) 06/13/24 Unknown History eye drops (Artificial Tears (carboxymethylcellulose)) dulaglutide 0.75 mg/0.5 mL 0.75 mg subcut SA 06/13/24 06/07/24 History subcutaneous pen injector loperamide 2 mg capsule 4 mg PO BID PRN loose stool 06/13/24 Unknown History (Anti-Diarrheal (loperamide)) Allergy/AdvReac Type Severity Reaction Status Date / Time No Known Allergies Allergy Verified 06/13/24 11:52 Family History Father Myocardial infarction, Onset Age: 52 Other Anxiety Arthritis Asthma Diabetes Hypertension Surgical History History of hernia repair History of cholecystectomy History of left heart catheterization (06/09/20) Social History housing: house Smoking Status: Never smoker alcohol intake: never substance use type: does not use what type of physical activity do you participate in: bicycling frequency: 1-2 times per week ROS ROS ED Constitutional Constitutional ED: Denies chills or fever(s) Eyes Eyes: Denies blurry vision or change in vision ENT ENT ED: Denies rhinorrhea or sore throat Cardiovascular Cardiovascular: Reports chest pain; Denies palpitations Respiratory/Chest Respiratory/Chest: Reports dyspnea; Denies cough Gastrointestinal Gastrointestinal: Reports diarrhea; Denies nausea or vomiting Genitourinary Genitourinary ED: Denies dysuria or hematuria Musculoskeletal Musculoskeletal: Denies back pain or neck pain Integumentary Denies abscess or rash Neurologic Neurologic: Denies headache(s) or weakness Allergic/Immunologic Allergic/Immunologic ED: Denies mouth swelling or urticaria EXAM Physical Exam Const Vital Signs: 06/13/24 11:47 06/13/24 11:50 06/13/24 11:56 Temperature 97.4 F L 97.4 F L Temperature Source Oral Oral Pulse Rate 63 64 Respiratory Rate 30 H 30 H Respiratory Effort Short of Breath Labored Respiratory Depth Normal Respiratory Pattern Normal Blood Pressure 146/70 H 146/70 H Blood Pressure Mean 95 95 Pulse Ox 97 97 Oxygen Delivery Method Nasal Cannula Nasal Cannula Nasal Cannula Oxygen Flow Rate (L/min) 2 2 2 06/13/24 12:50 06/13/24 13:00 06/13/24 13:32 Temperature 97.8 F 98 F Temperature Source Oral Oral Pulse Rate 65 52 L Respiratory Rate 28 H 18 Respiratory Effort Respiratory Depth Respiratory Pattern Blood Pressure 148/68 H 142/73 H Blood Pressure Mean 94 96 Pulse Ox 97 97 Oxygen Delivery Method Nasal Cannula Room Air Nasal Cannula Oxygen Flow Rate (L/min) 2 06/13/24 14:00 06/13/24 15:00 06/13/24 15:48 Temperature 98 F 98 F 98.2 F Temperature Source Oral Oral Pulse Rate 55 L 45 L 48 L Respiratory Rate 18 16 17 Respiratory Effort Respiratory Depth Respiratory Pattern Blood Pressure 147/65 H 165/69 H 158/76 H Blood Pressure Mean 92 101 103 Pulse Ox 96 97 98 Oxygen Delivery Method Nasal Cannula Room Air Oxygen Flow Rate (L/min) Positive well nourished and well developed Constitutional Narrative: BMI is 33.2 General Appearance ED: well developed and NAD HEENT Reports moist mucous membranes Neck supple, no meningeal signs and no JVD Resp normal respiratory effort and clear to auscultation bilaterally Cardio regular rate Rhythm: abnormal rhythm irregularly irregular GI non-tender and non-distended Palpation: soft Neuro oriented x3, CN's II-XII intact bilaterally and no sensory deficits noted [place] Coma Scale: document GCS findings Spontaneous Obeys Commands Oriented 15 Sensorium / Orientation: alert Speech: speech normal Motor Exam: strength 5/5 throughout Psych mental status grossly normal MDM MDM MDM Narrative Medical decision making narrative: Differential diagnose includes cardiac dysrhythmia, cardiac ischemia, pneumonia, electrolyte abnormality, and viral illness. EKG will be obtained to assess for cardiac dysrhythmia and cardiac ischemia. Chest x-ray will be obtained to assess for pneumonia and bronchitis. CBC will be obtained to assess for leukocytosis and anemia. Basic metabolic profile will be obtained to assess for electrolyte abnormality and renal function. High-sensitivity troponin will be obtained to assess for cardiac ischemia. 2-hour repeat high-sensitivity troponin will be obtained to assess for ongoing cardiac ischemia. Lab Data Attestation: I reviewed the patient's lab results. Lab results narrative: CBC was reviewed. There is a mild anemia with a hemoglobin of 7.2 and hematocrit 23.2. Platelets are normal. Basic metabolic profile was reviewed. BUN was 47 and creatinine was 2.44. These are slightly increased from previous results. Initial high-sensitivity troponin was reviewed and was 52. 2-hour repeat high-sensitivity troponin was reviewed and was elevated at 58. Labs: Laboratory Results - last 24 hr 06/13/24 06/13/24 06/13/24 11:53 14:24 15:46 WBC 8.5 RBC 2.40 L Hgb 7.2 L Hct 23.2 L MCV 96.7 MCH 30.0 MCHC 31.0 L RDW Std Deviation 63.0 H RDW Coeff of [place] 18.5 H Plt Count 177 MPV 11.4 Immature Gran % (Auto) 0.400 Neut % (Auto) 75.6 H Lymph % (Auto) 15.5 L [place] % (Auto) 5.5 Eos % (Auto) 2.5 Baso % (Auto) 0.5 Absolute Neuts (auto) 6.5 Absolute Lymphs (auto) 1.32 Nucleated RBC % 0.4 Retic Count 2.71 H Immature Retic Fraction 23.90 H Retic Hgb Equivalent 30.3 Sodium 145 Potassium 4.6 Chloride 113 H Carbon Dioxide 17.4 L Anion Gap 15 BUN 47 H Creatinine 2.44 H Estim Creat Clear Calc 19.17 L Est GFR (MDRD) Non-Af 20 L BUN/Creatinine Ratio 19.4 Glucose 114 H Calcium 10.5 Iron 31 L TIBC 342 Iron Saturation 9.0 L Unsaturated IBC 311 Ferritin 53 Troponin T High Sens 52 H Troponin T Hi Sens 2 Hr 58 H* Troponin T Hi Sens 4Hr 65 H* Radiography Diagnostic Testing: Clinical Impression(s) from Imaging Studies Chest X-Ray 06/13/24 13:50 IMPRESSION: Pulmonary edema with small bilateral pleural effusions. [facility] and lateral chest x-ray was obtained. There are 2 views. On my independent interpretation, there is pulmonary edema and bilateral pleural effusions. There is no cardiomegaly noted. There is no widened mediastinum. Bony thorax is normal. Radiologist also interpreted the x-rays and agrees. EKG Initial EKG: Attestation: I personally reviewed and interpreted this EKG as follows: Interpretation: No Acute Injury Pattern and Atrial Fibrillation (61) Comments: EKG was obtained. On my independent interpretation, it showed atrial fibrillation with a rate of 61. QRS interval was normal at 76 ms. QTc interval was normal at 4 and 44 ms. [place] was normal at 41. There is poor R wave progression. There are no acute ST or T wave changes noted. Prior EKG tracings: available for review Prior: Unchanged (08/21/2023) Management Discussion w/another healthcare provider: Hospitalist (Dr. Xiong) Treatment and Re-Evaluation :: Patient was given aspirin. Patient was advised of her findings. Patient has a HEART score of 4. Since her delta troponin was 6, I felt the patient would benefit from inpatient treatment. Case was discussed with the hospitalist. She will admit the patient to her service. Patient understood and was agreeable with the plan. All questions were answered. Discharge Plan Dx/Rx/DC Orders Clinical Impression: Elevated troponin, Atrial fibrillation, Type 2 diabetes mellitus Disposition Disposition: Acute Care Hospital [facility] Discharge Date/Time: 06/13/24 17:30
--- NOTE | 2024-06-13 13:32 | EKG12_ITS ---
Test Reason : SOB Blood Pressure : */* mmHG Vent. Rate : 61 BPM Atrial Rate : * BPM P-R Int : * ms QRS Dur : 76 ms QT Int : 442 ms P-R-T Axes : * 41 89 degrees QTcB Int : 444 ms Atrial fibrillation Low voltage QRS Cannot rule out Anteroseptal infarct (cited on or before 21-Aug-2023) Abnormal ECG Confirmed by MICHELE LOYOLA, ROYA ([id number]), design editor JAKI JONES ([id number]) on 06/16/2024 9:19:54 AM Referred By: CALLUM Confirmed By: ROYA BAUTISTA MD
[2024-06-13] MEDS: Aspirin 81 MG TAB.CHEW 324 MG PO (13:43)
--- NOTE | 2024-06-13 13:50 | RAD_ITS ---
PROCEDURE: CHEST PA AND LATERAL 06/13/2024 REASON FOR EXAM: CHEST PAIN TECHNIQUE: Frontal and lateral views of the chest. COMPARISON: 08/21/2023 FINDINGS: Perihilar and bibasilar pulmonary opacities are present. There are small bilateral pleural effusions. The cardiomediastinal silhouette is unremarkable. No acute osseous or soft tissue abnormality. RAD/Chest PA and Lateral IMPRESSION: Pulmonary edema with small bilateral pleural effusions. Reading Location: [facility]
[2024-06-13 14:15] LABS: Anion Gap 15 (5-15); BUN 47 mg/dL (4-19); BUN/Creat Ratio 19.4 RATIO (10-20); Calcium,Total 10.5 mg/dL (7.6-11.0); Carbon Dioxide 17.4 mmol/L (21.0-32.0); Chloride 113 mmol/L (98-108); Creatinine, Serum 2.44 mg/dL (0.70-1.20); EST Glomerular Filtration Rate 20 (>60); Estimated Creatinine Clearance 19.17 ml/min (50-250); Glucose 114 mg/dL (70-99); Potassium 4.6 mmol/L (3.3-5.1); Sodium Level 145 mmol/L (133-145)
[2024-06-13 14:24] LABS: Absolute Lymphocyte Count 1.32 X10^3/uL (0.83-4.51); Absolute Neutrophil Count 6.5 X10^3/uL (2.0-7.7); Basophil# 0.04 X10^3/uL; Basophil% 0.5 % (0-1); Eosinophil# 0.21 X10^3/uL; Eosinophils% 2.5 % (0-5); Hematocrit 23.2 % (37-47); Hemoglobin 7.2 g/dL (12.0-15.0); Lymphocyte # 1.32 X10^3/ul (0.83-4.51); Lymphocyte % 15.5 % (19-41); Mean Corpuscular Volume 96.7 fL (81-99); Mean Platelet Vol. 11.4 fl (6.2-12.0); Monocyte# 0.47 X10^3/uL; Monocyte% 5.5 % (0-10); NRBC Flagged by Analyzer 0.4 % (0-5); Neutrophil # 6.46 X10^3/uL (2.7-7.7); Neutrophil % 75.6 % (47-70); Platelet Count 177 K/mm3 (150-450); RBC Distribution Width CV 18.5 % (11.6-14.6); White Blood Count 8.5 K/mm3 (4.4-11.0)
[2024-06-13 14:29] LABS: Troponin T High Sensitivity 52 ng/L (<=14)
[2024-06-13 15:38] LABS: Troponin T High Sens 2 HR 58 ng/L (<=14)
--- NOTE | 2024-06-13 16:29 | PCM.HP.STD ---
HPI - General General Date of Admission: 06/13/24 Date of Service: 06/13/24 Chief Complaint: Fatigue and shortness of breath HPI Narrative MARGOT GARVIN, is a 79-year-old female history of gout, coronary artery disease, depression, diabetes, hypertension with recent onset A-fib who presented [facility] ED 06/13/2024 with shortness of breath and fatigue. In the ED patient afebrile, heart rate 63 with rate between 35 and 65 with blood pressure 146/70, respiration rate initially 30 the patient 97% on 2 L however respiratory improved to 16 and patient was 97% on room air. BMP significant for creatinine of 2.44 up from a baseline around 1.5 with most recent creatinine in January at 1.72. Patient also noted to have a hemoglobin of 7.2 with a baseline around 10. Initial troponin of 52 with subsequent troponin up trended to 58. Hospitalist contacted for admission. Patient evaluated with her sister/MPOA at bedside, they report she was diagnosed with A-fib in her primary care physician's office on May 12, she was already on metoprolol with anticoagulation was added, she was referred to cardiology and set up for outpatient echo and stress test. Since that time patient has had worsened fatigue and shortness of breath to the point that her sister and she did not feel she was able to make it to the echo or stress test so they brought her to the ED. Patient reports she still somewhat short of breath but it is even worse on exertion, denies any lightheadedness at this time, does report she had an episode where she passed out in March or April but this was prior to the known A-fib and she is not able to describe this much further. She reports she has had some problems with diarrhea for several months that has not changed in the past couple of days and reports she pees frequently if she is on Lasix for leg swelling but this is not changed acutely either. No chest pain. Denies any cough. [facility] Medical History Abnormal EKG Arrhythmia Bilateral knee pain Stool incontinence Elevated brain natriuretic peptide (BNP) level Shortness of breath Anemia Bilateral lower extremity edema Post-viral cough syndrome Hypercalcemia Health care maintenance Vertigo Post-menopausal Gout Obesity Essential (primary) hypertension Type 2 diabetes mellitus History of non-ST elevation myocardial infarction (NSTEMI) (06/08/20) Atherosclerotic heart disease of [place] coronary artery without angina pectoris Dizziness Lightheadedness Headache Home Medications ?Medication ?Instructions ?Recorded ?Last Taken ?Type acetaminophen 650 mg 1,300 mg PO DAILY PRN Pain 1-10 Or 06/08/20 2 Days Ago History tablet,extended release Fever ~06/06/20 allopurinol 300 mg tablet 300 mg PO DAILY GOUT 06/08/20 06/11/24 History aspirin 81 mg tablet,delayed 81 mg PO DAILY #90 tabs 07/26/20 06/11/24 Rx release (Adult Aspirin Regimen) meclizine 25 mg tablet 25 mg PO BID PRN vertigo #60 tabs 09/21/21 Unknown Rx fluoxetine 10 mg capsule See Rx Instructions .Route 11/06/23 06/11/24 Rx .COMPLEX #90 caps lisinopril 20 mg tablet 20 mg PO DAILY BP #90 tabs 11/06/23 06/11/24 Rx atorvastatin 80 mg tablet 80 mg PO QHS #90 tabs 11/12/23 06/11/24 Rx metoprolol tartrate 50 mg tablet 50 mg PO BID #180 tabs 12/12/23 06/11/24 Rx albuterol sulfate 90 mcg/actuation 2 puff inhalation Q6H PRN 04/10/24 Unknown Rx aerosol inhaler shortness of breath or wheezing #8.5 grams metformin 1,000 mg tablet 1,000 mg PO BIDCM DM #180 tabs 04/16/24 06/11/24 Rx amlodipine 5 mg tablet 5 mg PO DAILY #90 tabs 05/12/24 06/11/24 Rx furosemide 20 mg tablet 20 mg PO DAILY #90 tabs 05/12/24 06/11/24 Rx apixaban 5 mg tablet 5 mg PO BID #180 tabs 05/19/24 06/11/24 Rx carboxymethylcellulose sodium 1 % 1 drp EACH EYE BID PRN dry eye(s) 06/13/24 Unknown History eye drops (Artificial Tears (carboxymethylcellulose)) dulaglutide 0.75 mg/0.5 mL 0.75 mg subcut SA 06/13/24 06/07/24 History subcutaneous pen injector loperamide 2 mg capsule 4 mg PO BID PRN loose stool 06/13/24 Unknown History (Anti-Diarrheal (loperamide)) Allergy/AdvReac Type Severity Reaction Status Date / Time No Known Allergies Allergy Verified 06/13/24 11:52 Family History Father Myocardial infarction, Onset Age: 52 Other Anxiety Arthritis Asthma Diabetes Hypertension Surgical History History of hernia repair History of cholecystectomy History of left heart catheterization (06/09/20) Social History Smoking Status: Never smoker alcohol intake: never substance use type: does not use what type of physical activity do you participate in: bicycling frequency: 1-2 times per week ROS ROS Narrative General: Denies fever/chills HENT: Denies current headache EYES: Denies changes in vision Resp: Denies cough, does have shortness of breath especially on exertion Cardiac: Denies chest pain GI: Denies abdominal pain, has been having problems with diarrhea, denies nausea/vomiting : Urinates frequently with Lasix Extremity: Has had some swelling in her lower extremities MSK: Feels generally weak and fatigued. Neuro: Denies any numbness/tingling Heme: Denies any bleeding or bruising Skin: Denies rashes Psychiatric: No complaints voiced Vital Signs Vital Signs Vital Signs: 06/13/24 11:47 06/13/24 11:50 06/13/24 11:56 Temperature 97.4 F L 97.4 F L Temperature Source Oral Oral Pulse Rate 63 64 Respiratory Rate 30 H 30 H Respiratory Effort Short of Breath Labored Respiratory Depth Normal Respiratory Pattern Normal Blood Pressure 146/70 H 146/70 H Blood Pressure Mean 95 95 Pulse Ox 97 97 Oxygen Delivery Method Nasal Cannula Nasal Cannula Nasal Cannula Oxygen Flow Rate (L/min) 2 2 2 06/13/24 12:50 06/13/24 13:00 06/13/24 13:32 Temperature 97.8 F 98 F Temperature Source Oral Oral Pulse Rate 65 52 L Respiratory Rate 28 H 18 Respiratory Effort Respiratory Depth Respiratory Pattern Blood Pressure 148/68 H 142/73 H Blood Pressure Mean 94 96 Pulse Ox 97 97 Oxygen Delivery Method Nasal Cannula Room Air Nasal Cannula Oxygen Flow Rate (L/min) 2 06/13/24 14:00 06/13/24 15:00 06/13/24 15:48 Temperature 98 F 98 F 98.2 F Temperature Source Oral Oral Pulse Rate 55 L 45 L 48 L Respiratory Rate 18 16 17 Respiratory Effort Respiratory Depth Respiratory Pattern Blood Pressure 147/65 H 165/69 H 158/76 H Blood Pressure Mean 92 101 103 Pulse Ox 96 97 98 Oxygen Delivery Method Nasal Cannula Room Air Oxygen Flow Rate (L/min) Weight Weight: 85.5 kg Body Mass Index (BMI) 35.6 Physical Exam Narrative General: Alert, oriented HEENT: Atraumatic, normocephalic Eyes: Anicteric, normal conjunctiva, extraocular movements grossly intact Neck: Supple Respiratory: Some increased work of breathing without any overt wheezes, rhonchi Cardiovascular: Regular rate and rhythm, does have a systolic ejection murmur at the upper borders GI: Soft, nontender, nondistended Extremities: 1-2+ bilateral lower extremity edema Musculoskeletal: Moving all extremities Neuro: No overt focal neurological deficits Skin: No rashes appreciated Psych: Cooperative Results Lab / Micro Data 06/13/24 11:53 06/13/24 11:53 Labs: Laboratory Results - last 24 hr 06/13/24 11:53: WBC 8.5, RBC 2.40 L, Hgb 7.2 L, Hct 23.2 L, MCV 96.7, MCH 30.0, MCHC 31.0 L, RDW Std Deviation 63.0 H, RDW Coeff of [place] 18.5 H, Plt Count 177, MPV 11.4, Immature Gran % (Auto) 0.400, Neut % (Auto) 75.6 H, Lymph % (Auto) 15.5 L, [place] % (Auto) 5.5, Eos % (Auto) 2.5, Baso % (Auto) 0.5, Absolute Neuts (auto) 6.5, Absolute Lymphs (auto) 1.32, Nucleated RBC % 0.4, Sodium 145, Potassium 4.6, Chloride 113 H, Carbon Dioxide 17.4 L, Anion Gap 15, BUN 47 H, Creatinine 2.44 H, Estim Creat Clear Calc 19.17 L, Est GFR (MDRD) Non-Af 20 L, BUN/Creatinine Ratio 19.4, Glucose 114 H, Calcium 10.5, Troponin T High Sens 52 H 06/13/24 14:24: Troponin T Hi Sens 2 Hr 58 H* Imaging Radiology Impression Chest X-Ray 06/13/24 13:50 IMPRESSION: Pulmonary edema with small bilateral pleural effusions. Reading [facility] Assessment & Plan Assessment/Plan (1) Shortness of breath: (2) Atrial fibrillation: PLAN: Plan # Shortness of breath suspect secondary to bradycardia versus new onset heart failure compounded by patient's underlying anemia -Patient reports worsening shortness of breath over the past couple of weeks since she was diagnosed with A-fib -In the ED on telemetry patient had heart rate anywhere from 30s to 60s and had pauses of longest duration of 2.43 -Patient is on 50 twice daily of metoprolol or tartrate -Will hold metoprolol and consult cardiology -If patient becomes tachycardic and is difficult to control may need to consider pacemaker on Sunday -Continue Eliquis at this time -Patient has shortness of breath and lower extremity edema with A-fib, cannot rule out component of fluid overload especially given she has noted to have pulmonary edema and small bilateral pleural effusions on her x-ray -Will order echocardiogram -Will order BNP -Admit to telemetry -IV lasix -Daily weights, I's and O's -Fluid restriction, heart healthy diet # Atrial fibrillation -Patient diagnosed May 12 -Presently bradycardic but is in A-fib -Patient on Eliquis -Holding metoprolol -Management as above #GERBER on CKD stage IIIb -Creatinine 2.44, baseline appears to be around 1.5 with most recent creatinine in January of 1.72 -Query if this may be cardiorenal in nature given she seems fluid overloaded -Will obtain kidney ultrasound -IV Lasix, if worsening may need further workup -Will hold lisinopril # Acute on chronic anemia -Patient creatinine 7.2 with previous hemoglobin around 9-10 -Patient does not note any acute bleeding however this may be worsening her shortness of breath -Will check iron panel, reticulocyte count, FOBT # Elevated troponin -Initial troponin 52 with repeat 58 and subsequent of 65 -Patient with no chest pain, she is already fully anticoagulated with Eliquis and was given aspirin in the ED -Cardiology consulted as above -Suspect this is secondary to patient's fluid overload we will be monitoring on telemetry and if any chest pain develops will repeat stat troponin and EKG # History of coronary artery disease -Continue aspirin, statin, Eliquis #Hypertension -Continue amlodipine #Type 2 diabetes mellitus -Glucose checks and sliding scale insulin #Depression/anxiety -Continue home medications #Gout -Continue home allopurinol #DVT ppx: diana Xiong MD Charges/Coding Visit Charges Inpatient E&M: 70025 Init Hosp L2
[2024-06-13 16:38] LABS: Troponin T High Sens 4 HR 65 ng/L (<=14)
--- NOTE | 2024-06-13 17:01 | US_ITS ---
PROCEDURE: KIDNEY AND BLADDER 06/13/2024 REASON FOR EXAM: WORSENING RENAL FUNCTION TECHNIQUE: Bilateral renal ultrasound. COMPARISON: None FINDINGS: Kidneys: kidneys are grossly normal in size and cortical thickness. Right the length is 10.7 cm left kidney length is 10.6 cm right renal cortex is 1.5 cm. Left renal cortex is 1.4 cm. [place]: None Cysts or Masses: No solid masses are identified. Other: RIGHT Kidney Size: 10.7 x 5.5 x 5.6 Parenchymal Thickness: 1.5 (>14mm is normal) LEFT Kidney Size: 10.6 x 4.6 x 5.6 Parenchymal Thickness: 1.4 cm (>14mm is normal) Garcia catheter is seen in an empty urinary bladder. US/Kidney and Bladder IMPRESSION: No gross sonographic abnormalities identified in the right and left kidneys Reading [facility]
[2024-06-13 17:19] LABS: Platelet Count 175 K/mm3 (150-450); RET-HE 30.3 pg (30-35); Reticulocyte Count 2.71 % (0.5-1.5)
--- NOTE | 2024-06-13 17:44 | ECHOCS_ITS ---
Reason For Study Reason For Study: CHF Procedure This was a 2D Doppler, Color Flow transthoracic echocardiogram. The study was technically difficult. Contrast injection was performed. Exam performed portable in patient room. Left Ventricle Normal left ventricle. The estimated ejection fraction is 55-60 %. Right Ventricle Normal right ventricle. Normal systolic function. Atria The left atrium is moderately enlarged. Mitral Valve There is moderate to severe mitral annular calcification. Mild (1+) mitral valve insufficiency. Tricuspid Valve Normal tricuspid valve. Mild tricuspid valve insufficiency. Aortic Valve Aortic valve area Aortic valve area calculated 1.1 cm squire aortic maximal pressure gradient 40.8 mmHg aortic mean pressure gradient of 19.2 mmHg. . Pulmonic Valve The pulmonic valve is not well visualized. Great Vessels The aortic root is not well visualized. Pericardium/Pleural No pericardial effusion. Medication Diluted definity 2.5ml given slow IV push to enhance endocardial definition. MMode/2D Measurements & Calculations LVIDd: 5.0 cm IVSd: 0.98 cm LVOT diam: 2.0 cm LVIDs: 2.7 cm LVPWd: 1.2 cm RVDd: 4.3 cm FS: 46.5 % LVOT area: 3.2 cm2 Ao root diam: 3.6 cm LAV(MOD-bp): 91.0 ml LVAd ap4: 30.1 cm2 LAV(MOD-bp) Indexed: 50.2 ml/m2 LVLd ap4: 7.8 cm LAV(MOD-sp2): 98.4 ml EDV(MOD-sp4): 93.5 ml LAV(MOD-sp4): 81.8 ml EDV(sp4-el): 98.0 ml LVAs ap4: 17.4 cm2 LVLs ap4: 6.7 cm ESV(MOD-sp4): 37.5 ml ESV(sp4-el): 38.6 ml EF(MOD-sp4): 59.9 % EF(sp4-el): 60.7 % SV(MOD-sp4): 56.0 ml SV(sp4-el): 59.5 ml Aortic Valve Planimetry: 0.89 cm2 SI(MOD-sp4): 31.0 ml/m2 LA A4 area: 23.6 cm2 LA dimension(2D): 5.1 cm RA A4 area: 18.1 cm2 Doppler Measurements & Calculations MV E max bib: 181.3 cm/sec MV V2 max: 216.3 cm/sec Ao V2 max: 318.7 cm/sec MV max P.8 mmHg Ao max P.8 mmHg MV V2 mean: 105.9 cm/sec Ao V2 mean: 201.4 cm/sec MV mean P.8 mmHg Ao mean P.2 mmHg MV V2 VTI: 48.7 cm Ao V2 VTI: 65.4 cm MVA(VTI): 1.6 cm2 AV (velocity ratio): 0.39 LUANN(I,D): 1.2 cm2 LUANN(V,D): 1.1 cm2 LV V1 max: 111.7 cm/sec SV(LVOT): 80.2 ml PA V2 max: 130.4 cm/sec LV V1 max P.1 mmHg LV V1 mean P.7 mmHg LV V1 mean: 77.1 cm/sec LV V1 VTI: 25.3 cm TR max bib: 383.7 cm/sec TR max P.9 mmHg ECHO/Echo Complete W/ Contrast Interpretation Summary The estimated ejection fraction is 55-60 %. Normal LV systolic function Aortic valve area calculated 1.1 cm squire. Aortic maximal pressure gradient 40.8 mmHg. Aortic mean pressure gradient of 19.2 mmHg. . This is consistent with moderate calcific aortic valve stenosis Ordering Physician: Kaitlynn Xiong Performed By: Og Stanley RCS
[2024-06-13 18:07] LABS: Ferritin 53 ng/mL (22-378); Iron 31 ug/dL (50-170); Iron Binding Capacity,Total 342 ug/dL (250-450); Iron Binding Capacity,Unsat 311 ug/dL (228-428)
[2024-06-13] MEDS: Furosemide 40 MG/4 ML Vial IV (18:19)
[2024-06-13] MEDS: 0.9% Saline Lock 10 ML Syringe IV (18:19)
[2024-06-13] MEDS: Atorvastatin Calcium 80 MG Tablet PO (21:55)
[2024-06-13] MEDS: APIXABAN 5 MG TABLET PO (21:55)
[2024-06-13 22:18] LABS: Bedside Glucose 135 mg/dL (74-106)
[2024-06-14] VITALS (12 sets, daily range): BP systolic 150–168; BP diastolic 82–124; PULSE 53–80; RESP 18–22; TEMP 36.2–36.8; O2SAT 92–98; BMI 33.5
[2024-06-14] MEDS: Albuterol 2.5 MG/3 ML VIAL.NEB. INHALATION (03:20)
[2024-06-14] MEDS: 0.9% Saline Lock 10 ML Syringe IV ×2 (03:42→10:59)
[2024-06-14] MEDS: hydrALAZINE 20 MG/ML Vial 10 MG IV (03:42)
[2024-06-14 05:29] LABS: Absolute Lymphocyte Count 1.05 X10^3/uL (0.83-4.51); Absolute Neutrophil Count 5.6 X10^3/uL (2.0-7.7); Basophil# 0.04 X10^3/uL; Basophil% 0.5 % (0-1); Eosinophil# 0.21 X10^3/uL; Eosinophils% 2.9 % (0-5); Hematocrit 25.1 % (37-47); Hemoglobin 7.7 g/dL (12.0-15.0); Lymphocyte # 1.05 X10^3/ul (0.83-4.51); Lymphocyte % 14.3 % (19-41); Mean Corp Hgb Conc 30.7 g/dL (32-36); Mean Corpuscular Hgb 29.3 pg (27.0-32.0); Mean Corpuscular Volume 95.4 fL (81-99); Mean Platelet Vol. 11.4 fl (6.2-12.0); Monocyte# 0.36 X10^3/uL; Monocyte% 4.9 % (0-10); NRBC Flagged by Analyzer 0.5 % (0-5); Neutrophil # 5.63 X10^3/uL (2.7-7.7); Neutrophil % 76.7 % (47-70); Platelet Count 183 K/mm3 (150-450); RBC Distribution Width CV 18.6 % (11.6-14.6); RBC Distribution Width SD 61.8 fl (35.1-43.9); Red Blood Count 2.63 M/mm3 (4.2-5.4); White Blood Count 7.3 K/mm3 (4.4-11.0)
[2024-06-14 06:02] LABS: ALB/GLOB Ratio 1.3 RATIO (0.9-2.4); AST(SGOT) 25 U/L (<=31); Alanine Aminotransfer ALT/SGPT 20 U/L (<=34); Albumin, Serum 3.7 g/dL (3.4-4.8); Alkaline Phosphatase 96 U/L (35-104); Anion Gap 14 (5-15); BUN 49 mg/dL (4-19); BUN/Creat Ratio 18.2 RATIO (10-20); Calcium,Total 10.9 mg/dL (7.6-11.0); Carbon Dioxide 19.8 mmol/L (21.0-32.0); Chloride 112 mmol/L (98-108); Cholesterol 117 mg/dL (<=200); Creatinine, Serum 2.67 mg/dL (0.70-1.20); EST Glomerular Filtration Rate 18 (>60); Estimated Creatinine Clearance 17.57 ml/min (50-250); Globulin 2.9 g/dL (2.2-4.2); Glucose 116 mg/dL (70-99); High Density Lipoprotein 55 mg/dL; Low Density Lipoprotein Calc. 43 mg/dL; Potassium 4.5 mmol/L (3.3-5.1); Pro- Brain NATRIURETIC PEPTIDE 6431 pg/mL (<=1800); Protein, Total 6.7 g/dL (5.9-8.4); Sodium Level 145 mmol/L (133-145); Total Bilirubin 0.59 mg/dL (0.00-1.30); Triglycerides 97 mg/dL; Very Low Density Lipoprotein 19 mg/dL (5-40); cholesterol:hdl ratio screen 2.13
--- NOTE | 2024-06-14 07:55 | PN.HOSP_ITS ---
Reason for Visit Reason for Visit: Diagnoses Unspecified atrial fibrillation (06/13/24) Shortness of breath (06/13/24) Subjective Subjective Still short of breath. Objective Data Objective Data Vital Signs: Vital Signs Temp Pulse Resp BP Pulse Ox O2 Del Method O2 Flow Rate 36.5 C L 68 22 H 161/94 H 97 Nasal Cannula 3 06/14/24 07:47 06/14/24 07:47 06/14/24 07:47 06/14/24 07:47 06/14/24 07:47 06/14/24 07:47 06/14/24 07:47 Oxygen Flow Rate (L/min) 3 Oxygen Delivery Method Nasal Cannula Weight: 82.5 kg Body Mass Index (BMI) 33.5 Intake & Output: Intake and Output for Last 24 Hours 06/12/24 06/13/24 06/14/24 23:59 23:59 23:59 Intake Total 120 / 240 120 / 120 Output Total 850 / 850 Balance 120 / -135 -730 / -730 Lab / Micro Data 06/14/24 05:00 06/14/24 05:00 Labs: Laboratory Results - last 24 hr 06/13/24 11:53: WBC 8.5, RBC 2.40 L, Hgb 7.2 L, Hct 23.2 L, MCV 96.7, MCH 30.0, MCHC 31.0 L, RDW Std Deviation 63.0 H, RDW Coeff of [place] 18.5 H, Plt Count 177, MPV 11.4, Immature Gran % (Auto) 0.400, Neut % (Auto) 75.6 H, Lymph % (Auto) 15.5 L, Sac % (Auto) 5.5, Eos % (Auto) 2.5, Baso % (Auto) 0.5, Absolute Neuts (auto) 6.5, Absolute Lymphs (auto) 1.32, Nucleated RBC % 0.4, Retic Count 2.71 H , Immature Retic Fraction 23.90 H, Retic Hgb Equivalent 30.3, Sodium 145, Potassium 4.6, Chloride 113 H, Carbon Dioxide 17.4 L, Anion Gap 15, BUN 47 H, C reatinine 2.44 H, Estim Creat Clear Calc 19.17 L, Est GFR (MDRD) Non-Af 20 L, BUN/Creatinine Ratio 19.4, Glucose 114 H, Calcium 10.5, Troponin T High Sens 52 H 06/13/24 14:24: Iron 31 L, TIBC 342, Iron Saturation 9.0 L, Unsaturated IBC 311, Ferritin 53, Troponin T Hi Sens 2 Hr 58 H* 06/13/24 15:46: Troponin T Hi Sens 4Hr 65 H* 06/13/24 21:53: POC Glucose 135 H 06/14/24 05:00: WBC 7.3, RBC 2.63 L, Hgb 7.7 L, Hct 25.1 L, MCV 95.4, MCH 29.3, MCHC 30.7 L, RDW Std Deviation 61.8 H, RDW Coeff of [place] 18.6 H, Plt Count 183, MPV 11.4, Immature Gran % (Auto) 0.700, Neut % (Auto) 76.7 H, Lymph % (Auto) 14.3 L, Sac % (Auto) 4.9, Eos % (Auto) 2.9, Baso % (Auto) 0.5, Absolute Neuts (auto) 5.6, Absolute Lymphs (auto) 1.05, Nucleated RBC % 0.5, Sodium 145, Potassium 4.5, Chloride 112 H, Carbon Dioxide 19.8 L, Anion Gap 14, BUN 49 H, C reatinine 2.67 H, Estim Creat Clear Calc 17.57 L, Est GFR (MDRD) Non-Af 18 L, BUN/Creatinine Ratio 18.2, Glucose 116 H, Calcium 10.9, Total Bilirubin 0.59, AST 25, ALT 20, Alkaline Phosphatase 96, NT pro BNP II 6431 H, Total Protein 6.7, Albumin 3.7, Globulin 2.9, Albumin/Globulin Ratio 1.3, Triglycerides 97, Cholesterol 117, LDL Cholesterol, Calc 43, VLDL Cholesterol 19, HDL Cholesterol 55, Cholesterol/HDL Ratio 2.13, TSH 4.040 Radiography Diagnostic Testing: Radiology Impression Chest X-Ray 06/13/24 13:50 IMPRESSION: Pulmonary edema with small bilateral pleural effusions. Reading Location: [facility] Physical Exam Const alert and no apparent distress Constitutional Narrative: in bed. no respiratory distress. no conversational dyspnea. HEENT head/scalp atraumatic and moist oral mucous membranes Resp normal respiratory effort and no retractions Resp Narrative: bilateral crackles. Cardio regular rate, regular rhythm, S1 normal heart sound and S2 normal heart sound GI normal to inspection, nondistended, normoactive bowel sounds and soft to palpation Extremity General Extremity: edema bilateral lower extremity Details: moderate Neuro Sensorium / Orientation: awake and alert Assessment & Plan Assessment/Plan (1) (HFpEF) heart failure with preserved ejection fraction: PLAN: on IV furosemide 40/d No ACEi/ARB given GERBER echo ordered (2) Bradycardia: PLAN: Likely iatrogenic. Improved Metoprolol held (3) Elevated troponin: PLAN: Likely demand ischemia. follow up echo (4) GERBER (acute kidney injury): PLAN: Ongoing. Check urine studies. Check renal ultrasound PLAN: Plan Chronic conditions: * Afib: apixaban. metoprolol held given bradycardia * depression: continue paroxetine * HTN: continue amlodipine VTE prophylaxis: not indicated as already on apixaban. Charges/Coding Visit Charges Inpatient E&M: 10751 Subs Hosp L2
[2024-06-14] MEDS: APIXABAN 5 MG TABLET PO ×2 (10:59→21:33)
[2024-06-14] MEDS: Aspirin E.C. 81 MG Tablet PO (10:59)
[2024-06-14] MEDS: Furosemide 40 MG/4 ML Vial IV (10:59)
[2024-06-14] MEDS: FLUoxetine 10 MG Capsule PO (11:00)
[2024-06-14] MEDS: amLODIPine 5 MG Tablet PO (11:00)
[2024-06-14] MEDS: Allopurinol 300 MG Tablet PO (11:00)
--- NOTE | 2024-06-14 11:38 | CASEMGMT ---
Addendum entered by Antonina Stauffer 06/14/24 16:08: Social Work- [facility] accepted referral pending insurance verification. LATANYA Proctor Addendum entered by Antonina Stauffer 06/14/24 13:09: Pt chose [facility] as FOC. SW completed referral. SW remains available to follow. SABINOCC; pend acceptance LATANYA Proctor Original Note: Social Work- A list of SNF providers including quality and resource use data and consistent with the patient?s preferred geographic region, medical needs, and insurance network were provided from the [employer] Guide. LATANYA Proctor
[2024-06-14] MEDS: Insulin Lispro 100 UNIT/ML INSULN.PEN SC (11:50)
[2024-06-14 12:12] LABS: Bedside Glucose 150 mg/dL (74-106)
--- NOTE | 2024-06-14 13:47 | CASEMGMT ---
VICKY RICE Face to Face with patient for initial transition planning/care coordination assessment. VICKY RICE introduced self and role at [facility]. Patient lying in bed, alert and oriented. Patient willing to participate in assessment and is able to answer all questions appropriately. Care providers, pharmacy, and demographics verified. Strata: 2 PCP: [facility] Specialists: none Preferred Pharmacy: [facility] Insurance: [employer] [facility] Prescription Benefit: yes Living Will/HPOA: yes, sister Naomy Majano LNOK: sister Living Arrangements: Patient lives alone in a single story home with 2 steps and railing to enter. Patient was independent at home. Transportation: sister DME/HHC: Patient has raised toilet, cane, walker, grab bars, rollator at home. NO previous HHC or SNF. VICKY RICE reviewed progress with therapy, patient required min assist x1 for transfers and ambulated 5ft contact guard and recommendation for SNF. Patient agreeable to SNF at discharge. A list of SNF providers including quality and resource use data and consistent with the patient?s preferred geographical region, medical needs, and insurance network were provided from the [employer] Guide. Patient prefers [facility]. Patient states she has no further needs or concerns at this time. VICKY RICE updated SABINO regarding request for [facility] at discharge. CM to follow for discharge planning needs that may arise. Disposition Plan: [facility] pending acceptance and precert. Angelique CARVALHO, RN, CM
--- NOTE | 2024-06-14 16:32 | PCM.CONS.C ---
Assessment & Plan Assessment/Plan (1) Bradycardia: (2) (HFpEF) heart failure with preserved ejection fraction: (3) Atrial fibrillation: (4) Bilateral lower extremity edema: (5) History of non-ST elevation myocardial infarction (NSTEMI): (6) Essential (primary) hypertension: HPI Consult Data Date of Consult: 06/14/24 HPI Narrative Reason for Consultation: Paroxysmal atrial fibrillation HPI Narrative: MARGOT GARVIN, is a 79 F who presents [facility] Medical History Abnormal EKG Arrhythmia Bilateral knee pain Stool incontinence Elevated brain natriuretic peptide (BNP) level Shortness of breath Anemia Bilateral lower extremity edema Post-viral cough syndrome Hypercalcemia Health care maintenance Vertigo Post-menopausal Gout Obesity Essential (primary) hypertension Type 2 diabetes mellitus History of non-ST elevation myocardial infarction (NSTEMI) (06/08/20) Atherosclerotic heart disease of [place] coronary artery without angina pectoris Dizziness Lightheadedness Headache Home Medications ?Medication ?Instructions ?Recorded ?Last Taken ?Type acetaminophen 650 mg 1,300 mg PO DAILY PRN Pain 1-10 Or 06/08/20 2 Days Ago History tablet,extended release Fever ~06/06/20 allopurinol 300 mg tablet 300 mg PO DAILY GOUT 06/08/20 06/11/24 History aspirin 81 mg tablet,delayed 81 mg PO DAILY preventative #90 07/26/20 06/11/24 Rx release (Adult Aspirin Regimen) tabs meclizine 25 mg tablet 25 mg PO BID PRN vertigo #60 tabs 09/21/21 Unknown Rx fluoxetine 10 mg capsule See Rx Instructions .Route 11/06/23 06/11/24 Rx .COMPLEX #90 caps lisinopril 20 mg tablet 20 mg PO DAILY BP #90 tabs 11/06/23 06/11/24 Rx atorvastatin 80 mg tablet 80 mg PO QHS cholesterol #90 tabs 11/12/23 06/11/24 Rx metoprolol tartrate 50 mg tablet 50 mg PO BID #180 tabs 12/12/23 06/11/24 Rx albuterol sulfate 90 mcg/actuation 2 puff inhalation Q6H PRN 04/10/24 Unknown Rx aerosol inhaler shortness of breath or wheezing #8.5 grams metformin 1,000 mg tablet 1,000 mg PO BIDCM DM #180 tabs 04/16/24 06/11/24 Rx amlodipine 5 mg tablet 5 mg PO DAILY #90 tabs 05/12/24 06/11/24 Rx furosemide 20 mg tablet 20 mg PO DAILY duiuretic #90 tabs 05/12/24 06/11/24 Rx apixaban 5 mg tablet 5 mg PO BID blood thinner #180 tabs 05/19/24 06/11/24 Rx carboxymethylcellulose sodium 1 % 1 drp EACH EYE BID PRN dry eye(s) 06/13/24 Unknown History eye drops (Artificial Tears (carboxymethylcellulose)) dulaglutide 0.75 mg/0.5 mL 0.75 mg subcut SA 06/13/24 06/07/24 History subcutaneous pen injector loperamide 2 mg capsule 4 mg PO BID PRN loose stool 06/13/24 Unknown History (Anti-Diarrheal (loperamide)) Allergy/AdvReac Type Severity Reaction Status Date / Time No Known Allergies Allergy Verified 06/13/24 11:52 Family History Father Myocardial infarction, Onset Age: 52 Other Anxiety Arthritis Asthma Diabetes Hypertension Surgical History History of hernia repair History of cholecystectomy History of left heart catheterization (06/09/20) Social History housing: house Smoking Status: Never smoker alcohol intake: never substance use type: does not use what type of physical activity do you participate in: bicycling frequency: 1-2 times per week Physical Exam Cardio Cardio Narrative: Patient seen and evaluated at bedside along with the nursing staff Has been on oxygen/nasal cannula Review of the energy advisor showed A-fib with controlled ventricular rate No further episode of pauses Cardiac exam S1-S2 is regular No systolic or diastolic murmur Chest exam mildly diminished air entry bilateral Examination lower extremity +1 bilateral lower extremity edema. Cardiac care plan; Echocardiogram revealed LV systolic function is preserved ejection fraction of 55 to 60% Moderate calcific aortic valve stenosis With aortic valve area calculated 1.1 cm squire. And a gradient of 40.8 mm squire with a mean gradient of 19.2 mm squire. And no pericardial effusion. From cardiac standpoint we will continue current medical treatment including OAC/apixaban Beta-sophia has been discontinued due to long pauses and slow ventricular rate Patient can be evaluated further as an outpatient with ILR/loop implant and to discuss possible pacemaker for tachybradycardia syndrome in the setting of A-fib with RVR. I reviewed and discussed all the current medication we will continue current medical treatment. Risk Stratification Risk Stratification Applicable: No Objective Data Vital Signs: Vital Signs Temp Pulse Resp BP Pulse Ox O2 Del Method O2 Flow Rate 97.9 F 71 18 162/82 H 92 Nasal Cannula 2 06/14/24 11:42 06/14/24 15:00 06/14/24 11:42 06/14/24 11:42 06/14/24 11:42 06/14/24 12:00 06/14/24 12:00 Oxygen Flow Rate (L/min) 2 Oxygen Delivery Method Nasal Cannula Weight: 181 lb 14.102 oz Body Mass Index (BMI) 33.5 Intake & Output: Intake and Output for Last 24 Hours 06/12/24 06/13/24 06/14/24 23:59 23:59 23:59 Intake Total 120 / 240 620 / 620 Output Total 1350 / 1350 Balance 120 / -135 -730 / -730 Lab / Micro Data 06/14/24 05:00 06/14/24 05:00 Labs: Laboratory Results - last 24 hr 06/13/24 11:53: Retic Count 2.71 H, Immature Retic Fraction 23.90 H, Retic Hgb Equivalent 30.3 06/13/24 14:24: Iron 31 L, TIBC 342, Iron Saturation 9.0 L, Unsaturated IBC 311, Ferritin 53 06/13/24 15:46: Troponin T Hi Sens 4Hr 65 H* 06/13/24 21:53: POC Glucose 135 H 06/14/24 05:00: WBC 7.3, RBC 2.63 L, Hgb 7.7 L, Hct 25.1 L, MCV 95.4, MCH 29.3, MCHC 30.7 L, RDW Std Deviation 61.8 H, RDW Coeff of Ford 18.6 H, Plt Count 183, MPV 11.4, Immature Gran % (Auto) 0.700, Neut % (Auto) 76.7 H, Lymph % (Auto) 14.3 L, [place] % (Auto) 4.9, Eos % (Auto) 2.9, Baso % (Auto) 0.5, Absolute Neuts (auto) 5.6, Absolute Lymphs (auto) 1.05, Nucleated RBC % 0.5, Sodium 145, Potassium 4.5, Chloride 112 H, Carbon Dioxide 19.8 L, Anion Gap 14, BUN 49 H, Creatinine 2.67 H, Estim Creat Clear Calc 17.57 L, Est GFR (MDRD) Non-Af 18 L, BUN/Creatinine Ratio 18.2, Glucose 116 H, Calcium 10.9, Total Bilirubin 0.59, AST 25, ALT 20, Alkaline Phosphatase 96, NT pro BNP II 6431 H, Total Protein 6.7, Albumin 3.7, Globulin 2.9, Albumin/Globulin Ratio 1.3, Triglycerides 97, Cholesterol 117, LDL Cholesterol, Calc 43, VLDL Cholesterol 19, HDL Cholesterol 55, Cholesterol/HDL Ratio 2.13, TSH 4.040 06/14/24 11:47: POC Glucose 150 H Cardiology Labs/Tests 06/13/24 14:24: Iron 31 L, TIBC 342, Iron Saturation 9.0 L, Ferritin 53 06/14/24 05:00: WBC 7.3, RBC 2.63 L, Hgb 7.7 L, Hct 25.1 L, MCV 95.4, MCH 29.3, MCHC 30.7 L, Plt Count 183, MPV 11.4, Immature Gran % (Auto) 0.700, Neut % (Auto) 76.7 H, Lymph % (Auto) 14.3 L, [place] % (Auto) 4.9, Eos % (Auto) 2.9, Baso % (Auto) 0.5, Absolute Neuts (auto) 5.6, Nucleated RBC % 0.5, Sodium 145, Potassium 4.5, Chloride 112 H, Carbon Dioxide 19.8 L, Anion Gap 14, BUN 49 H, Creatinine 2.67 H, Est GFR (MDRD) Non-Af 18 L, BUN/Creatinine Ratio 18.2, Glucose 116 H, Calcium 10.9, Total Bilirubin 0.59, Triglycerides 97, Cholesterol 117, VLDL Cholesterol 19, HDL Cholesterol 55, Cholesterol/HDL Ratio 2.13 Rhythm: EKG: ECHO: Stress Test: Cardiac Cath: PCI: CT Surgery: Holter monitor: EPS: PPM: CXR: Chest CT Scan: Radiography Diagnostic Testing: Radiology Impression Renal Ultrasound 06/13/24 17:01 IMPRESSION: No gross sonographic abnormalities identified in the right and left kidneys Reading Location: [facility] Echocardiogram 06/13/24 17:44 Interpretation Summary The estimated ejection fraction is 55-60 %. Normal LV systolic function Aortic valve area calculated 1.1 cm squire. Aortic maximal pressure gradient 40.8 mmHg. Aortic mean pressure gradient of 19.2 mmHg. . This is consistent with moderate calcific aortic valve stenosis Ordering Physician: Kaitlynn Xiong Performed By: Og Stanley, [facility] [[email or web address]]
[2024-06-14 17:28] LABS: Bedside Glucose 126 mg/dL (74-106)
[2024-06-14] MEDS: Atorvastatin Calcium 80 MG Tablet PO (21:33)
[2024-06-14 21:55] LABS: Bedside Glucose 118 mg/dL (74-106)
[2024-06-15 06:00] VITALS: BMI 33.2
[2024-06-15 07:12] LABS: Absolute Lymphocyte Count 0.86 X10^3/uL (0.83-4.51); Absolute Neutrophil Count 5.2 X10^3/uL (2.0-7.7); Basophil# 0.03 X10^3/uL; Basophil% 0.4 % (0-1); Eosinophil# 0.26 X10^3/uL; Eosinophils% 3.8 % (0-5); Hematocrit 24.6 % (37-47); Hemoglobin 7.7 g/dL (12.0-15.0); Lymphocyte # 0.86 X10^3/ul (0.83-4.51); Lymphocyte % 12.6 % (19-41); Mean Corp Hgb Conc 31.3 g/dL (32-36); Mean Corpuscular Hgb 29.6 pg (27.0-32.0); Mean Corpuscular Volume 94.6 fL (81-99); Mean Platelet Vol. 11.4 fl (6.2-12.0); Monocyte# 0.48 X10^3/uL; NRBC Flagged by Analyzer 0.3 % (0-5); Neutrophil # 5.17 X10^3/uL (2.7-7.7); Neutrophil % 75.9 % (47-70); Platelet Count 165 K/mm3 (150-450); RBC Distribution Width CV 18.6 % (11.6-14.6); RBC Distribution Width SD 62.4 fl (35.1-43.9); White Blood Count 6.8 K/mm3 (4.4-11.0)
[2024-06-15 07:42] LABS: Anion Gap 12 (5-15); BUN 47 mg/dL (4-19); Calcium,Total 10.7 mg/dL (7.6-11.0); Chloride 112 mmol/L (98-108); Creatinine, Serum 2.46 mg/dL (0.70-1.20); EST Glomerular Filtration Rate 20 (>60); Estimated Creatinine Clearance 19.04 ml/min (50-250); Glucose 103 mg/dL (70-99); Potassium 4.2 mmol/L (3.3-5.1); Sodium Level 145 mmol/L (133-145)
[2024-06-15] MEDS: APIXABAN 5 MG TABLET PO (08:26)
[2024-06-15] MEDS: FLUoxetine 10 MG Capsule PO (08:26)
[2024-06-15] MEDS: amLODIPine 5 MG Tablet PO (08:26)
[2024-06-15] MEDS: Allopurinol 300 MG Tablet PO (08:26)
[2024-06-15] MEDS: Furosemide 40 MG/4 ML Vial IV ×2 (08:26→18:19)
[2024-06-15] MEDS: Aspirin E.C. 81 MG Tablet PO (08:26)
[2024-06-15] MEDS: 0.9% Saline Lock 10 ML Syringe IV ×2 (08:27→18:19)
[2024-06-15 08:37] VITALS: BP 165/74; PULSE 77; RESP 16; TEMP 36.6; O2SAT 97
--- NOTE | 2024-06-15 09:08 | PCM.PN.HOSP ---
Reason for Visit Reason for Visit: Diagnoses Essential (primary) hypertension (06/13/24) Old myocardial infarction (06/13/24) Unspecified atrial fibrillation (06/13/24) Unspecified diastolic (congestive) heart failure (06/13/24) Acute kidney failure, unspecified (06/13/24) Bradycardia, unspecified (06/13/24) Shortness of breath (06/13/24) Localized edema (06/13/24) Other specified abnormal findings of blood chemistry (06/13/24) Subjective Subjective Breathing better. Objective Data Objective Data Vital Signs: Vital Signs Temp Pulse Resp BP Pulse Ox O2 Del Method O2 Flow Rate 36.6 C 77 16 165/74 H 97 Nasal Cannula 2 06/15/24 08:37 06/15/24 08:37 06/15/24 08:37 06/15/24 08:37 06/15/24 08:37 06/15/24 08:39 06/15/24 08:39 Oxygen Flow Rate (L/min) 2 Oxygen Delivery Method Nasal Cannula Weight: 82.3 kg Body Mass Index (BMI) 33.2 Intake & Output: Intake and Output for Last 24 Hours 06/13/24 06/14/24 06/15/24 23:59 23:59 23:59 Intake Total 120 / 240 620 / 620 Output Total 1550 / 1550 Balance 120 / -135 -930 / -930 Lab / Micro Data 06/15/24 04:18 06/15/24 04:18 Labs: Laboratory Results - last 24 hr 06/14/24 11:47: POC Glucose 150 H 06/14/24 17:04: POC Glucose 126 H 06/14/24 21:30: POC Glucose 118 H 06/15/24 04:18: WBC 6.8, RBC 2.60 L, Hgb 7.7 L, Hct 24.6 L, MCV 94.6, MCH 29.6, MCHC 31.3 L, RDW Std Deviation 62.4 H, RDW Coeff of [place] 18.6 H, Plt Count 165, MPV 11.4, Immature Gran % (Auto) 0.300, Neut % (Auto) 75.9 H, Lymph % (Auto) 12.6 L, [place] % (Auto) 7.0, Eos % (Auto) 3.8, Baso % (Auto) 0.4, Absolute Neuts (auto) 5.2, Absolute Lymphs (auto) 0.86, Nucleated RBC % 0.3, Sodium 145, Potassium 4.2, Chloride 112 H, Carbon Dioxide 21.0, Anion Gap 12, BUN 47 H, Creatinine 2.46 H, Estim Creat Clear Calc 19.04 L, Est GFR (MDRD) Non-Af 20 L, BUN/Creatinine Ratio 19.0, Glucose 103 H, Calcium 10.7 Radiography Diagnostic Testing: Radiology Impression Renal Ultrasound 06/13/24 17:01 IMPRESSION: No gross sonographic abnormalities identified in the right and left kidneys Reading [facility] Echocardiogram 06/13/24 17:44 Interpretation Summary The estimated ejection fraction is 55-60 %. Normal LV systolic function Aortic valve area calculated 1.1 cm squire. Aortic maximal pressure gradient 40.8 mmHg. Aortic mean pressure gradient of 19.2 mmHg. . This is consistent with moderate calcific aortic valve stenosis Ordering Physician: Kaitlynn Xiong Performed By: Og Stanley RCS Physical Exam Const alert and no apparent distress Constitutional Narrative: no respiratory distress. no conversational dyspnea. HEENT head/scalp atraumatic and moist oral mucous membranes Resp normal respiratory effort, no retractions, no use of accessory muscles and clear to auscultation bilaterally Cardio regular rate, regular rhythm, S1 normal heart sound and S2 normal heart sound GI normal to inspection, nondistended, normoactive bowel sounds, soft to palpation, non-tender and non-distended Extremity Extremity Narrative: decreased lower extremity edema with wrinkling of the skin. Neuro Sensorium / Orientation: awake and alert Assessment & Plan Assessment/Plan (1) (HFpEF) heart failure with preserved ejection fraction: PLAN: acute, obviously on IV furosemide 40/d, will increase to BID. No ACEi/ARB given GERBER Echo shows an EF 55-60%. (2) Bradycardia: PLAN: Likely iatrogenic. Improved Metoprolol held (3) Elevated troponin: PLAN: Likely demand ischemia. Echo 55-60% (4) GERBER (acute kidney injury): PLAN: Ongoing. Check urine studies (ordered 06/14, yet to be collected). Renal ultrasound unremarkable PLAN: Plan Chronic conditions: Afib: apixaban. metoprolol held given bradycardia depression: continue paroxetine HTN: continue amlodipine VTE prophylaxis: not indicated as already on apixaban. Charges/Coding Visit Charges Inpatient E&M: 20863 Subs Hosp L2
[2024-06-15 10:35] LABS: Bedside Glucose 116 mg/dL (74-106)
[2024-06-15] MEDS: Insulin Lispro 100 UNIT/ML INSULN.PEN SC (11:51)
[2024-06-15 12:12] LABS: Bedside Glucose 190 mg/dL (74-106)
[2024-06-15 13:50] VITALS: O2SAT 95
[2024-06-15 14:30] VITALS: BP 134/85; PULSE 84; RESP 17; TEMP 36.8; O2SAT 98
[2024-06-15 14:42] VITALS: O2SAT 91; O2SAT 95
[2024-06-15 14:56] VITALS: O2SAT 91; O2SAT 95
--- NOTE | 2024-06-15 15:30 | DS.PCM_ITS ---
Providers Date of Admission: 06/13/24 Primary Care Physician: Dr. Carole Sheehan MD Consultations 06/13/24 17:44 Consult: Cardiology Routine Consulting Provider: Margarita Campbell Reason for Consult: afib w/ bradycardia, elevated trop, fluid overload EMERGENT Consult: No MD Notified: Yes Date Notified: 06/13/24 Time Notified: 17:48 Method of Notification: Text Reason For Visit: SOB, FATIGUE Diagnosis Discharge Diagnosis (1) (HFpEF) heart failure with preserved ejection fraction: Status: Acute Code(s): I50.30 - Unspecified diastolic (congestive) heart failure Plan: acute, obviously on IV furosemide 40/d, will increase to BID. No ACEi/ARB given GERBER Echo shows an EF 55-60%. (2) Bradycardia: Status: Acute Code(s): R00.1 - Bradycardia, unspecified Plan: Likely iatrogenic. Improved Metoprolol held (3) Elevated troponin: Status: Acute Code(s): R79.89 - Other specified abnormal findings of blood chemistry Plan: Likely demand ischemia. Echo 55-60% (4) GERBER (acute kidney injury): Status: Acute Code(s): N17.9 - Acute kidney failure, unspecified Plan: Ongoing. Check urine studies (ordered 06/14, yet to be collected). Renal ultrasound unremarkable Plan Chronic conditions: * Afib: apixaban. metoprolol held given bradycardia * depression: continue paroxetine * HTN: continue amlodipine VTE prophylaxis: not indicated as already on apixaban. Medications at Discharge Home Medications acetaminophen 650 mg tablet,extended release 1,300 mg PO DAILY PRN Pain 1-10 Or Fever 06/08/20 allopurinol 300 mg tablet 300 mg PO DAILY GOUT 06/08/20 aspirin 81 mg tablet,delayed release (Adult Aspirin Regimen) 81 mg PO DAILY preventative #90 tabs 07/26/20 meclizine 25 mg tablet 25 mg PO BID PRN vertigo #60 tabs 09/21/21 fluoxetine 10 mg capsule See Rx Instructions .Route .COMPLEX #90 caps 11/06/23 atorvastatin 80 mg tablet 80 mg PO QHS cholesterol #90 tabs 11/12/23 metoprolol tartrate 50 mg tablet 50 mg PO BID #180 tabs 12/12/23 albuterol sulfate 90 mcg/actuation aerosol inhaler 2 puff inhalation Q6H PRN shortness of breath or wheezing #8.5 grams 04/10/24 amlodipine 5 mg tablet 5 mg PO DAILY #90 tabs 05/12/24 carboxymethylcellulose sodium 1 % eye drops (Artificial Tears (carboxymethylcellulose)) 1 drp EACH EYE BID PRN dry eye(s) 06/13/24 dulaglutide 0.75 mg/0.5 mL subcutaneous pen injector 0.75 mg subcut SA 06/13/24 loperamide 2 mg capsule (Anti-Diarrheal (loperamide)) 4 mg PO BID PRN loose stool 06/13/24 apixaban 5 mg tablet (Eliquis) 2.5 mg (1/2 x 5 mg) PO BID #60 tabs 06/15/24 ferrous sulfate 325 mg (65 mg iron) tablet 325 mg PO DAILY #30 tabs 06/15/24 furosemide 20 mg tablet 20 mg PO BIDCM duiuretic #60 tabs 06/15/24 Hospital Course Operations None Procedures 2-D Echocardiogram Summary of Care Provided Minutes Spent on Discharge: 32 Hospital Course: Patient presents with shortness of breath. Patient was found to be bradycardic with heart rate in the 30s. Additionally she was noted to be in CHF and was started on IV furosemide. She did have acute kidney injury with creatinine of 2.44 that went up to 2.67. Subsequently went down to 2.46. Renal ultrasound was unremarkable. This may have been due to hypoperfusion. Additionally she was also noted to be anemic but her hemoglobin has remained stable during this hospitalization. [place] that much of her symptoms were attributed to the bradycardia that may have led to her having heart failure. May also lead to some hypoperfusion of her kidneys as well may have caused GERBER. Patient will continue with furosemide upon discharge, discontinue the metoprolol given the bradycardia. Patient will need to have follow-up labs for her creatinine as well as her hemoglobin. I will start her on a low-dose of ferrous sulfate. Patient expressed reservations about her being discharged as she stated that she had a panic attack when she came in here. Feel that some of her shortness of breath may have caused her to feel anxious, which I tried to reassure her is actually in normal physiologic response. She seemed satisfied with the answer and was willing to go home. Weight / BMI Weight Weight: 82.3 kg Body Mass Index (BMI) 33.2 ABG / Lab / Microbiology Data 06/15/24 04:18 06/15/24 04:18 Laboratory: Laboratory Results - last 24 hr 06/14/24 17:04: POC Glucose 126 H 06/14/24 21:30: POC Glucose 118 H 06/15/24 04:18: WBC 6.8, RBC 2.60 L, Hgb 7.7 L, Hct 24.6 L, MCV 94.6, MCH 29.6, MCHC 31.3 L, RDW Std Deviation 62.4 H, RDW Coeff of [place] 18.6 H, Plt Count 165, MPV 11.4, Immature Gran % (Auto) 0.300, Neut % (Auto) 75.9 H, Lymph % (Auto) 12.6 L, [place] % (Auto) 7.0, Eos % (Auto) 3.8, Baso % (Auto) 0.4, Absolute Neuts (auto) 5.2, Absolute Lymphs (auto) 0.86, Nucleated RBC % 0.3, Sodium 145, Potassium 4.2, Chloride 112 H, Carbon Dioxide 21.0, Anion Gap 12, BUN 47 H, C reatinine 2.46 H, Estim Creat Clear Calc 19.04 L, Est GFR (MDRD) Non-Af 20 L, BUN/Creatinine Ratio 19.0, Glucose 103 H, Calcium 10.7 06/15/24 06:47: POC Glucose 116 H 06/15/24 11:50: POC Glucose 190 H D/C Instructions Discharge Diet: 2000 Calorie Control Diet DC O2, CPAP, BIPAP Needs Home O2 Discharge instructions: No Meaningful Use Info Meaningful Use Meaningful Use Diagnoses (Choose all that apply): CHF CHF GORGE/ARB ordered at discharge?: No Reason GORGE/ARB not ordered?: Worsening renal disease Documented LVEF (%): 55 Ischemic Stroke Statin Dosing Therapy Reference: STATIN DOSE THERAPY REFERENCE: * Patients > 75 years receive moderate or high dose statin therapy. * Patients 75 years or YOUNGER should receive HIGH intensity statin dose unless contraindicated. You will be required to document reason for non-treatment if statin daily dose does not meet guidelines. HIGH DOSE STATIN THERAPY DAILY Atorvastatin > than or = to 40 mg Rosuvastatin > than or = to 20 mg Amlodipine + Atorvastatin > than or = to 2.5/40 mg Ezetimibe + Simvastatin 10/80 mg Simvastatin 80mg Discharge Plan Admission Admit Date/Time: 06/13/24 16:30 Primary Reason for Your Visit: Bradycardia Attending Provider: Williams Henry Primary Care Provider: Carole Sheehan Consulting Providers: Margarita Campbell; Kaitlynn Xiong Instructions Patient Instructions: Heart Failure Flare Up Signs, Heart Failure Care, Heart Failure and Physical Activity, Heart Failure Additional Instructions / Restrictions: You had bradycardia, low heart rate, due to your metoprolol. Your heart rate has improved since has been discontinued. He also had some heart failure, fluid buildup in your lungs, is likely due to the bradycardia and I responded well with Lasix. Please resume your Lasix but the frequency be increased to twice daily from once daily. I will want you to have your labs checked in regards to your kidney function as well as your hemoglobin. Your hemoglobin, which is where your blood count, is a little low. No need for any intervention at this time but just needs to be monitored. We can start you on iron tablets to help with blood cell production. Additionally, given your kidney function, your Eliquis dosing will be decreased to 5 mg twice daily to 2.5 mg twice daily. And we will discontinue your metformin because that could be an issue with your kidney function and lisinopril. Discharge Orders/Prescriptions Prescriptions: New Eliquis 5 mg Tablet 2.5 mg PO BID Qty: 60 0RF ferrous sulfate 325 mg (65 mg iron) tablet 325 mg PO DAILY Qty: 30 0RF Continued aspirin [Adult Aspirin Regimen] 81 mg tablet,delayed release (DR/EC) 81 mg PO DAILY Qty: 90 3RF meclizine 25 mg tablet 25 mg PO BID PRN (Reason: vertigo) Qty: 60 1RF amlodipine 5 mg tablet 5 mg PO DAILY Qty: 90 3RF acetaminophen 650 MG tablet extended release 1,300 mg PO DAILY PRN (Reason: Pain 1-10 Or Fever) allopurinol 300 MG tablet 300 mg PO DAILY Artificial Tears (cmc) 1 % drops 1 drp EACH EYE BID PRN (Reason: dry eye(s)) dulaglutide 0.75 mg/0.5 mL pen injector 0.75 mg subcut SA loperamide [Anti-Diarrheal (loperamide)] 2 mg capsule 4 mg PO BID PRN (Reason: loose stool) fluoxetine 10 mg capsule See Rx Instructions .ROUTE .COMPLEX Qty: 90 1RF Dose Instruction: TAKE 1 CAPSULE BY MOUTH EVERY DAY Rx Instructions: TAKE 1 CAPSULE BY MOUTH EVERY DAY atorvastatin 80 mg tablet 80 mg PO QHS Qty: 90 1RF metoprolol tartrate 50 mg tablet 50 mg PO BID Qty: 180 3RF albuterol sulfate 90 mcg/actuation HFA aerosol inhaler 2 puff inhalation Q6H PRN (Reason: shortness of breath or wheezing) Qty: 8.5 2RF Changed furosemide 20 mg tablet 20 mg PO BIDCM Qty: 60 0RF Discontinued lisinopril 20 mg tablet 20 mg PO DAILY Qty: 90 3RF metformin 1,000 mg tablet 1,000 mg PO BIDCM Qty: 180 1RF apixaban 5 mg tablet 5 mg PO BID Qty: 180 1RF Referrals / Follow Up: Carole Sheehan MD [Primary Care Provider] - Within 2 Weeks Disposition Disposition (needs filled in before D/C Order can be placed): Home, Self Care Charges/Coding Visit Charges Inpatient E&M: 57958 Disch Hosp >30min
[2024-06-15 17:10] LABS: Bedside Glucose 153 mg/dL (74-106)
[2024-06-15] MEDS: Atorvastatin Calcium 80 MG Tablet PO (21:11)
[2024-06-15] MEDS: APIXABAN 2.5 MG TABLET (WCH) PO (21:15)
[2024-06-15 21:29] LABS: Bedside Glucose 116 mg/dL (74-106)
[2024-06-15 21:40] VITALS: BP 135/70; PULSE 76; RESP 16; TEMP 36.9; O2SAT 98
[2024-06-16 03:09] VITALS: BP 114/69; PULSE 72; RESP 16; TEMP 36.6; O2SAT 96
[2024-06-16 04:25] VITALS: BMI 31.8
[2024-06-16 07:45] LABS: Anion Gap 16 (5-15); BUN 41 mg/dL (4-19); Calcium,Total 10.6 mg/dL (7.6-11.0); Carbon Dioxide 18.5 mmol/L (21.0-32.0); Chloride 108 mmol/L (98-108); Creatinine, Serum 2.26 mg/dL (0.70-1.20); EST Glomerular Filtration Rate 22 (>60); Estimated Creatinine Clearance 20.29 ml/min (50-250); Glucose 133 mg/dL (70-99); Potassium 3.8 mmol/L (3.3-5.1); Sodium Level 143 mmol/L (133-145)
[2024-06-16 07:57] VITALS: O2SAT 96
--- NOTE | 2024-06-16 08:44 | PN.CARD_ITS ---
Subjective Subjective Patient seen and evaluated. Appears to be doing much better. Objective Data Vital Signs: Vital Signs Temp Pulse Resp BP Pulse Ox O2 Del Method O2 Flow Rate 97.8 F 72 16 114/69 96 Room Air 2 06/16/24 03:09 06/16/24 03:09 06/16/24 03:09 06/16/24 03:09 06/16/24 03:09 06/16/24 03:09 06/15/24 13:50 Oxygen Flow Rate (L/min) 2 Oxygen Delivery Method Room Air Weight: 174 lb 2.643 oz Body Mass Index (BMI) 31.8 Intake & Output: Intake and Output for Last 24 Hours 06/14/24 06/15/24 06/16/24 23:59 23:59 23:59 Intake Total 620 / 620 1300 / 1300 650 / 650 Output Total 1550 / 1550 860 / 860 500 / 500 Balance -930 / -930 440 / 440 150 / 150 Lab / Micro Data 06/15/24 04:18 06/16/24 05:46 Labs: Laboratory Results - last 24 hr 06/15/24 06:47: POC Glucose 116 H 06/15/24 11:50: POC Glucose 190 H 06/15/24 16:50: POC Glucose 153 H 06/15/24 21:06: POC Glucose 116 H 06/16/24 05:46: Sodium 143, Potassium 3.8, Chloride 108, Carbon Dioxide 18.5 L, Anion Gap 16 H, BUN 41 H, Creatinine 2.26 H, Estim Creat Clear Calc 20.29 L, Est GFR (MDRD) Non-Af 22 L, BUN/Creatinine Ratio 18.0, Glucose 133 H, Calcium 10.6 Cardiology Labs/Tests 06/16/24 05:46: Sodium 143, Potassium 3.8, Chloride 108, Carbon Dioxide 18.5 L, Anion Gap 16 H, BUN 41 H, Creatinine 2.26 H, Est GFR (MDRD) Non-Af 22 L, BUN/Creatinine Ratio 18.0, Glucose 133 H, Calcium 10.6 Rhythm: EKG: ECHO: Stress Test: Cardiac Cath: PCI: CT Surgery: Holter monitor: EPS: PPM: CXR: Chest CT Scan: Physical Exam Const alert, oriented x3 and no apparent distress General Appearance: cooperative HEENT hearing grossly normal bilaterally Head and Scalp: atraumatic Eyes EOMs intact bilaterally Neck General: normal visual inspection Chest inspection of chest normal and palpation of chest normal Resp normal respiratory effort Auscultation: clear to auscultation bilaterally Cardio S1 normal heart sound and S2 normal heart sound Jugular Venous Distention: JVD Rhythm: abnormal rhythm irregularly irregular GI normal to inspection, nondistended, normoactive bowel sounds Extremity normal capillary refill and no pedal edema Peripheral Pulses: Yes pulses 2+ throughout and femoral pulses present Skin no rashes or lesions noted Neuro oriented x3 and CN's II-XII intact bilaterally Psych Appearance: grossly normal and appropriate Assessment & Plan Assessment/Plan (1) Atherosclerotic heart disease of [place] coronary artery without angina pectoris: PLAN: Patient has evidence of atherosclerotic cardiovascular disease not amenable to PCI. At this time we will continue with medical therapy. Her current issue was probably worsened by her anemia. My suspicion is that her aspirin may be worsening some of her symptoms. It may be prudent to discontinue with and continue with the Eliquis only (2) Essential (primary) hypertension: PLAN: Blood pressure appears to be under good control at this particular time. I would not make any major changes at this particular time. Plan to be to continue the amlodipine. (3) (HFpEF) heart failure with preserved ejection fraction: PLAN: Patient appears to have heart failure with preserved ejection fraction. (4) Aortic stenosis: PLAN: There is mild aortic stenosis. Preserved ejection fraction. At this time we will continue with watchful waiting. (5) Atrial fibrillation: PLAN: Patient was noted to have atrial fibrillation but with a controlled ventricular response rate. The plan at this time will be to continue the current medical therapy. The beta-sophia has been discontinued and her heart rate has improved. Will follow-up as an outpatient and further recommendations made. Will continue with the Eliquis at the lower dose.
[2024-06-16 09:00] VITALS: BP 167/77; PULSE 75; RESP 16; TEMP 36.2; O2SAT 97
[2024-06-16] MEDS: Aspirin E.C. 81 MG Tablet PO (09:40)
[2024-06-16] MEDS: amLODIPine 5 MG Tablet PO (09:40)
[2024-06-16] MEDS: Allopurinol 300 MG Tablet PO (09:40)
[2024-06-16] MEDS: FLUoxetine 10 MG Capsule PO (09:40)
[2024-06-16] MEDS: Furosemide 40 MG Tablet PO (09:42)
[2024-06-16] MEDS: APIXABAN 2.5 MG TABLET (WCH) PO (09:42)
--- NOTE | 2024-06-16 09:48 | CASEMGMT ---
SW sent updates to [facility] via [employer] SW asked that they start pre-cert. Plan: d/c to [facility] pending insurance approval. Fabienne CHANDLER
--- NOTE | 2024-06-16 10:46 | PN.HOSP_ITS ---
Reason for Visit Reason for Visit: Diagnoses Essential (primary) hypertension (06/13/24) Atherosclerotic heart disease of [place] coronary artery without angina pectoris (06/13/24) Old myocardial infarction (06/13/24) Nonrheumatic aortic (valve) stenosis (06/13/24) Unspecified atrial fibrillation (06/13/24) Unspecified diastolic (congestive) heart failure (06/13/24) Acute kidney failure, unspecified (06/13/24) Bradycardia, unspecified (06/13/24) Shortness of breath (06/13/24) Localized edema (06/13/24) Other specified abnormal findings of blood chemistry (06/13/24) Subjective Subjective Patient is a 79-year-old lady who developed shortness of breath prior to undergoing stress test with echo sent to the ED diagnosed with acute congestive heart failure admitted to monitored bed for further management Objective Data Objective Data Vital Signs: Vital Signs Temp Pulse Resp BP Pulse Ox O2 Del Method O2 Flow Rate 97.8 F 72 16 114/69 96 Nasal Cannula 2 06/16/24 03:09 06/16/24 03:09 06/16/24 03:09 06/16/24 03:09 06/16/24 07:57 06/16/24 07:57 06/16/24 07:57 Oxygen Flow Rate (L/min) 2 Oxygen Delivery Method Nasal Cannula Weight: 79 kg Body Mass Index (BMI) 31.8 Intake & Output: Intake and Output for Last 24 Hours 06/14/24 06/15/24 06/16/24 23:59 23:59 23:59 Intake Total 620 / 620 1300 / 1300 650 / 650 Output Total 1550 / 1550 860 / 860 500 / 500 Balance -930 / -930 440 / 440 150 / 150 Lab / Micro Data 06/15/24 04:18 06/16/24 05:46 Labs: Laboratory Results - last 24 hr 06/15/24 11:50: POC Glucose 190 H 06/15/24 16:50: POC Glucose 153 H 06/15/24 21:06: POC Glucose 116 H 06/16/24 05:46: Sodium 143, Potassium 3.8, Chloride 108, Carbon Dioxide 18.5 L, Anion Gap 16 H, BUN 41 H, Creatinine 2.26 H, Estim Creat Clear Calc 20.29 L, Est GFR (MDRD) Non-Af 22 L, BUN/Creatinine Ratio 18.0, Glucose 133 H, Calcium 10.6 Physical Exam Narrative GENERAL: cooperative HEENT: Atraumatic; normocephalic EYES; Anicteric, Normal Conjunctiva NECK; supple, normal thyroid, RESPIRATORY: Diminished to auscultation CARDIOVASCULAR: Irregularly irregular, systolic murmur GI: soft, normoactive bowel sounds, : No Renal angle tenderness; EXTREMITIES: Trace bipedal edema, no clubbing, MUSCULOSKELETAL: no muscle wasting NEURO: Awake; no lateralizing signs. SKIN: No Rash PSYCH; Flat affect Assessment & Plan Assessment/Plan (1) GERBER (acute kidney injury): (2) (HFpEF) heart failure with preserved ejection fraction: PLAN: Plan Patient is a 79-year-old lady who developed shortness of breath prior to undergoing stress test with echo sent to the ED diagnosed with acute congestive heart failure admitted to monitored bed for further management 1. Acute chronic congestive heart failure ? Echo demonstrated EF of 55 to 60%.Patient manage with strict input and output, daily weight, fluid restriction low-sodium diet as well as diuretic therapy with furosemide 2. Paroxysmal A-fib ? Recently diagnosed patient was found to be bradycardic on admission metoprolol held. Patient is on systemic anticoagulation with apixaban continue 3. Coronary artery disease ? Patient has known history of ASCVD not amenable to PCI cardiology recommended optimization of medical therapy. Cardiology also recommended that discontinuation of aspirin 4.GERBER on CKD stage IIIb ? Patient baseline creatinine 1.5 creatinine admission was 2.4 suspected to be secondary to hypoperfusion from CHF. Patient creatinine did not change much with diuresis and was 2.26 as of 06/16/2024. Renal ultrasound ordered did show No gross sonographic abnormalities identified in the right and left kidneys. Will continue with daily monitoring with BMPs 5. Elevated troponin ? Secondary to demand ischemia from congestive heart failure 6. Anemia ? Secondary to chronic disorder monitoring H&H and transfuse if patient becomes symptomatic or hemoglobin falls below 7 7. Dyslipidemia ?Patient is on statin therapy, continued at home dose 8. Diabetes mellitus type 2 ? Placed on Accu-Cheks before meals and at bedtime with sliding scale coverage 9. Hypertension ? Blood pressure controlled, home medications continued with dose adjustment as needed 10. Gout ? Patient is on allopurinol did continue 11. Depression with anxiety ? Patient is on fluoxetine did continue 12. Physical deconditioning ? Requested for PT OT eval and social media campaign manager to assist with discharge planning 13. DVT prophylaxis ? On apixaban Time spent in the patient's overall evaluation,decision-making process, review of diagnostic data, adjustment of management, discussion with other providers, nursing nursing and ancillary staff involved in patient's care documentation, 38 Minutes
--- NOTE | 2024-06-16 11:02 | PCM.DC.SUM ---
Providers Date of Admission: 06/13/24 Date of Discharge: 06/16/24 Primary Care Physician: Dr. Carole Sheehan MD Consultations 06/13/24 17:44 Consult: Cardiology Routine Consulting Provider: Margarita Campbell Reason for Consult: afib w/ bradycardia, elevated trop, fluid overload EMERGENT Consult: No MD Notified: Yes Date Notified: 06/13/24 Time Notified: 17:48 Method of Notification: Text Reason For Visit: SOB, FATIGUE Diagnosis Discharge Diagnosis (1) GERBER (acute kidney injury): Status: Acute Code(s): N17.9 - Acute kidney failure, unspecified (2) (HFpEF) heart failure with preserved ejection fraction: Status: Acute Code(s): I50.30 - Unspecified diastolic (congestive) heart failure Plan Patient is a 79-year-old lady who developed shortness of breath prior to undergoing stress test with echo sent to the ED diagnosed with acute congestive heart failure admitted to monitored bed for further management 1. Acute chronic congestive heart failure ? Echo demonstrated EF of 55 to 60%.Patient manage with strict input and output, daily weight, fluid restriction low-sodium diet as well as diuretic therapy with furosemide 2. Paroxysmal A-fib ? Recently diagnosed patient was found to be bradycardic on admission metoprolol held. Patient is on systemic anticoagulation with apixaban continue 3. Coronary artery disease ? Patient has known history of ASCVD not amenable to PCI cardiology recommended optimization of medical therapy. Cardiology also recommended that discontinuation of aspirin 4.GERBER on CKD stage IIIb ? Patient baseline creatinine 1.5 creatinine admission was 2.4 suspected to be secondary to hypoperfusion from CHF. Patient creatinine did not change much with diuresis and was 2.26 as of 06/16/2024. Renal ultrasound ordered did show No gross sonographic abnormalities identified in the right and left kidneys. Will continue with daily monitoring with BMPs 5. Elevated troponin ? Secondary to demand ischemia from congestive heart failure 6. Anemia ? Secondary to chronic disorder monitoring H&H and transfuse if patient becomes symptomatic or hemoglobin falls below 7 7. Dyslipidemia ?Patient is on statin therapy, continued at home dose 8. Diabetes mellitus type 2 ? Placed on Accu-Cheks before meals and at bedtime with sliding scale coverage 9. Hypertension ? Blood pressure controlled, home medications continued with dose adjustment as needed 10. Gout ? Patient is on allopurinol did continue 11. Depression with anxiety ? Patient is on fluoxetine did continue 12. Physical deconditioning ? Requested for PT OT eval and social worker assistant to assist with discharge planning 13. Valvular heart disease ? Patient has known history of aortic stenosis mild cardiology recommended watchful waiting 14. DVT prophylaxis ? On apixaban Time spent in the patient's overall evaluation,decision-making process, review of diagnostic data, adjustment of management, discussion with other providers, nursing nursing and ancillary staff involved in patient's care documentation, 38 Minutes Medications at Discharge Home Medications acetaminophen 650 mg tablet,extended release 1,300 mg PO DAILY PRN Pain 1-10 Or Fever 06/08/20 allopurinol 300 mg tablet 300 mg PO DAILY GOUT 06/08/20 aspirin 81 mg tablet,delayed release (Adult Aspirin Regimen) 81 mg PO DAILY preventative #90 tabs 07/26/20 meclizine 25 mg tablet 25 mg PO BID PRN vertigo #60 tabs 09/21/21 fluoxetine 10 mg capsule See Rx Instructions .Route .COMPLEX #90 caps 11/06/23 atorvastatin 80 mg tablet 80 mg PO QHS cholesterol #90 tabs 11/12/23 metoprolol tartrate 50 mg tablet 50 mg PO BID #180 tabs 12/12/23 albuterol sulfate 90 mcg/actuation aerosol inhaler 2 puff inhalation Q6H PRN shortness of breath or wheezing #8.5 grams 04/10/24 amlodipine 5 mg tablet 5 mg PO DAILY #90 tabs 05/12/24 carboxymethylcellulose sodium 1 % eye drops (Artificial Tears (carboxymethylcellulose)) 1 drp EACH EYE BID PRN dry eye(s) 06/13/24 dulaglutide 0.75 mg/0.5 mL subcutaneous pen injector 0.75 mg subcut SA 06/13/24 loperamide 2 mg capsule (Anti-Diarrheal (loperamide)) 4 mg PO BID PRN loose stool 06/13/24 apixaban 5 mg tablet (Eliquis) 2.5 mg (1/2 x 5 mg) PO BID #60 tabs 06/15/24 ferrous sulfate 325 mg (65 mg iron) tablet 325 mg PO DAILY #30 tabs 06/15/24 furosemide 20 mg tablet 20 mg PO BIDCM duiuretic #60 tabs 06/15/24 Physical Exam Narrative GENERAL: cooperative HEENT: Atraumatic; normocephalic EYES; Anicteric, Normal Conjunctiva NECK; supple, normal thyroid, RESPIRATORY: Diminished to auscultation CARDIOVASCULAR: Irregularly irregular, systolic murmur GI: soft, normoactive bowel sounds, : No Renal angle tenderness; EXTREMITIES: Trace edema, no clubbing, MUSCULOSKELETAL: no muscle wasting NEURO: Awake; no lateralizing signs. SKIN: No Rash PSYCH; Flat affect Weight / BMI Weight Weight: 79 kg Body Mass Index (BMI) 31.8 ABG / Lab / Microbiology Data 06/15/24 04:18 06/16/24 05:46 Laboratory: Laboratory Results - last 24 hr 06/15/24 11:50: POC Glucose 190 H 06/15/24 16:50: POC Glucose 153 H 06/15/24 21:06: POC Glucose 116 H 06/16/24 05:46: Sodium 143, Potassium 3.8, Chloride 108, Carbon Dioxide 18.5 L, Anion Gap 16 H, BUN 41 H, Creatinine 2.26 H, Estim Creat Clear Calc 20.29 L, Est GFR (MDRD) Non-Af 22 L, BUN/Creatinine Ratio 18.0, Glucose 133 H, Calcium 10.6 D/C Instructions Discharge Diet: 2000 Calorie Control Diet DC O2, CPAP, BIPAP Needs Home O2 Discharge instructions: No Meaningful Use Info Meaningful Use Meaningful Use Diagnoses (Choose all that apply): CHF CHF GORGE/ARB ordered at discharge?: No Reason GORGE/ARB not ordered?: Worsening renal function Documented LVEF (%): 60 Ischemic Stroke Statin Dosing Therapy Reference: STATIN DOSE THERAPY REFERENCE: * Patients > 75 years receive moderate or high dose statin therapy. * Patients 75 years or YOUNGER should receive HIGH intensity statin dose unless contraindicated. You will be required to document reason for non-treatment if statin daily dose does not meet guidelines. HIGH DOSE STATIN THERAPY DAILY Atorvastatin > than or = to 40 mg Rosuvastatin > than or = to 20 mg Amlodipine + Atorvastatin > than or = to 2.5/40 mg Ezetimibe + Simvastatin 10/80 mg Simvastatin 80mg Discharge Plan Admission Admit Date/Time: 06/13/24 16:30 Primary Reason for Your Visit: Bradycardia Attending Provider: Julito Blunt Primary Care Provider: Carole Sheehan Consulting Providers: Margarita Campbell; Kaitlynn Xiong; Williams Henry Instructions Patient Instructions: Heart Failure Flare Up Signs, Heart Failure Care, Heart Failure and Physical Activity, Heart Failure Additional Instructions / Restrictions: You had bradycardia, low heart rate, due to your metoprolol. Your heart rate has improved since has been discontinued. He also had some heart failure, fluid buildup in your lungs, is likely due to the bradycardia and I responded well with Lasix. Please resume your Lasix but the frequency be increased to twice daily from once daily. I will want you to have your labs checked in regards to your kidney function as well as your hemoglobin. Your hemoglobin, which is where your blood count, is a little low. No need for any intervention at this time but just needs to be monitored. We can start you on iron tablets to help with blood cell production. Additionally, given your kidney function, your Eliquis dosing will be decreased to 5 mg twice daily to 2.5 mg twice daily. And we will discontinue your metformin because that could be an issue with your kidney function and lisinopril. Discharge Orders/Prescriptions Prescriptions: New Eliquis 5 mg Tablet 2.5 mg PO BID Qty: 60 0RF ferrous sulfate 325 mg (65 mg iron) tablet 325 mg PO DAILY Qty: 30 0RF Continued aspirin [Adult Aspirin Regimen] 81 mg tablet,delayed release (DR/EC) 81 mg PO DAILY Qty: 90 3RF meclizine 25 mg tablet 25 mg PO BID PRN (Reason: vertigo) Qty: 60 1RF amlodipine 5 mg tablet 5 mg PO DAILY Qty: 90 3RF acetaminophen 650 MG tablet extended release 1,300 mg PO DAILY PRN (Reason: Pain 1-10 Or Fever) allopurinol 300 MG tablet 300 mg PO DAILY Artificial Tears (cmc) 1 % drops 1 drp EACH EYE BID PRN (Reason: dry eye(s)) dulaglutide 0.75 mg/0.5 mL pen injector 0.75 mg subcut SA loperamide [Anti-Diarrheal (loperamide)] 2 mg capsule 4 mg PO BID PRN (Reason: loose stool) fluoxetine 10 mg capsule See Rx Instructions .ROUTE .COMPLEX Qty: 90 1RF Dose Instruction: TAKE 1 CAPSULE BY MOUTH EVERY DAY Rx Instructions: TAKE 1 CAPSULE BY MOUTH EVERY DAY atorvastatin 80 mg tablet 80 mg PO QHS Qty: 90 1RF metoprolol tartrate 50 mg tablet 50 mg PO BID Qty: 180 3RF albuterol sulfate 90 mcg/actuation HFA aerosol inhaler 2 puff inhalation Q6H PRN (Reason: shortness of breath or wheezing) Qty: 8.5 2RF Changed furosemide 20 mg tablet 20 mg PO BIDCM Qty: 60 0RF Discontinued lisinopril 20 mg tablet 20 mg PO DAILY Qty: 90 3RF metformin 1,000 mg tablet 1,000 mg PO BIDCM Qty: 180 1RF apixaban 5 mg tablet 5 mg PO BID Qty: 180 1RF Referrals / Follow Up: Carole Sheehan MD [Primary Care Provider] - Within 2 Weeks Margarita Campbell MD [Med Staff - Active Staff] - Within 1 Month Disposition Disposition (needs filled in before D/C Order can be placed): Home, Self Care Charges/Coding Visit Charges Inpatient E&M: 78930 Disch Hosp >30min
[2024-06-16 11:06] VITALS: O2SAT 95; O2SAT 97
[2024-06-16] MEDS: Insulin Lispro 100 UNIT/ML INSULN.PEN SC (11:26)
--- NOTE | 2024-06-16 11:36 | CASEMGMT ---
VICKY RICE updated by hospitalist that patient did well with therapy and no longer requires SNF at discharge and patient will discharge home. VICKY RICE in to discuss discharge needs. Patient declines need for HHC as she ambulated 140 feet SBA. Patient states she has sister that is available for help if needed. VICKY RICE updated patient that if she would need HHC or therapy in the future to follow-up with PCP, patient voiced understanding. Patient had no further questions or concerns. VICKY RICE updated SW regarding discharge plan.
[2024-06-16 11:45] LABS: Bedside Glucose 158 mg/dL (74-106)
--- NOTE | 2024-06-16 11:45 | PHA.DC.MC.R ---
Pharmacy [facility] has performed discharge medication reconciliation and counseling for this patient. The patient's discharge medication list was reviewed for discrepancies and discrepancies were resolved. The patient was counseled on the following discharge medications and changes in medications for homegoing were reviewed. The Reason for Use, instructions for use, and potential side effects were reviewed for all new medications. The patient's questions regarding all of their medications were answered. 1. Ferrous sulfate 325 mg PO daily 2. Eliquis 2.5 mg PO BID (decrease from 5 mg PO BID) The patient was able to verbally demonstrate an understanding of their discharge medications. Medications at Discharge Home Medications acetaminophen 650 mg tablet,extended release 1,300 mg PO DAILY PRN Pain 1-10 Or Fever 06/08/20 allopurinol 300 mg tablet 300 mg PO DAILY GOUT 06/08/20 aspirin 81 mg tablet,delayed release (Adult Aspirin Regimen) 81 mg PO DAILY preventative #90 tabs 07/26/20 meclizine 25 mg tablet 25 mg PO BID PRN vertigo #60 tabs 09/21/21 fluoxetine 10 mg capsule See Rx Instructions .Route .COMPLEX #90 caps 11/06/23 atorvastatin 80 mg tablet 80 mg PO QHS cholesterol #90 tabs 11/12/23 albuterol sulfate 90 mcg/actuation aerosol inhaler 2 puff inhalation Q6H PRN shortness of breath or wheezing #8.5 grams 04/10/24 amlodipine 5 mg tablet 5 mg PO DAILY #90 tabs 05/12/24 carboxymethylcellulose sodium 1 % eye drops (Artificial Tears (carboxymethylcellulose)) 1 drp EACH EYE BID PRN dry eye(s) 06/13/24 dulaglutide 0.75 mg/0.5 mL subcutaneous pen injector 0.75 mg subcut SA 06/13/24 loperamide 2 mg capsule (Anti-Diarrheal (loperamide)) 4 mg PO BID PRN loose stool 06/13/24 apixaban 5 mg tablet (Eliquis) 2.5 mg (1/2 x 5 mg) PO BID #60 tabs 06/15/24 ferrous sulfate 325 mg (65 mg iron) tablet 325 mg PO DAILY #30 tabs 06/15/24 furosemide 20 mg tablet 20 mg PO BIDCM duiuretic #60 tabs 06/15/24
--- NOTE | 2024-06-16 12:50 | CASEMGMT ---
SABINO canceled referral to [facility] as patient is now going home. Fabienne Ramirez CHLORINE CELLS OPERATOR RAMESH
== END 2024-06-16 14:34 | disposition home or self-care (01) | DRG 291 ==
LOC: ED 16:40 → PCU 17:17
PROVIDERS: Admitting Provider Internal Medicine; Emergency Provider Emergency Medicine; PCP Internal Medicine; Visit Provider Internal Medicine
DX: I13.0 Hypertensive heart and chronic kidney disease with heart failure and stage 1 through stage 4 chronic kidney disease, or unspecified chronic kidney disease (principal); I50.31 Acute diastolic (congestive) heart failure; I24.89 Other forms of acute ischemic heart disease; N17.9 Acute kidney failure, unspecified; D63.1 Anemia in chronic kidney disease; Z79.01 Long term (current) use of anticoagulants; E11.22 Type 2 diabetes mellitus with diabetic chronic kidney disease; N18.32 Chronic kidney disease, stage 3b; I35.0 Nonrheumatic aortic (valve) stenosis; I48.91 Unspecified atrial fibrillation; I25.10 Atherosclerotic heart disease of native coronary artery without angina pectoris; M10.9 Gout, unspecified; R00.1 Bradycardia, unspecified; Z79.84 Long term (current) use of oral hypoglycemic drugs; Z79.82 Long term (current) use of aspirin; Z79.85 Long-term (current) use of injectable non-insulin antidiabetic drugs; Z79.02 Long term (current) use of antithrombotics/antiplatelets
CPT/HCPCS: 36415; 71046; 76770; 80048; 80053; 80061; 82728; 82962; 83540; 83550; 83880; 84443; 84484; 85025; 85045; 93005; 93306; 94640; 94668; 97162; 97166; 97530; 97535; 99285; Q9957; A4216; C8929; J1940

== ENCOUNTER 2024-07-02 18:08 | Inpatient (IN) | payer MEDICARE, SELFPAY ==
[2024-07-02] VITALS (11 sets, daily range): BP systolic 118–160; BP diastolic 61–101; PULSE 42–79; RESP 16–18; TEMP 36.4–36.8; O2SAT 94–99; BMI 31.2; BMI 30.7
[2024-07-02] MEDS: 0.9% Normal Saline (1000mL) 1,000 ML 999 ML IV (18:28)
--- NOTE | 2024-07-02 18:29 | EX.ED.DYSGE1 ---
HPI <JOSHUA Price - Last Filed: 07/02/24 19:09> History of Present Illness Chief Complaint: Abn Labs Narrative Narrative: Patient is a 79-year-old female with history of atrial fibrillation on Eliquis, fluid overload, CAD, chronic kidney disease who presents to the emergency department for 2 abnormal lab values. Patient was seeing her PCP, today, she had a CBC and BMP drawn. Patient's hemoglobin is 6.4, patient is on Eliquis, she also has been having dark stool. Patient renal function is also decreased with a creatinine of 3.6, patient is normally between 1.5 and 2. The primary care doctor would like her to be admitted to the hospital. [facility] <JOSHUA Price - Last Filed: 07/02/24 19:09> [facility] Medical History Current use of anticoagulant therapy Severe anemia Aortic stenosis (HFpEF) heart failure with preserved ejection fraction Atrial fibrillation Abnormal EKG Arrhythmia Bilateral knee pain Stool incontinence Elevated brain natriuretic peptide (BNP) level Shortness of breath Anemia Bilateral lower extremity edema Post-viral cough syndrome Hypercalcemia Health care maintenance Vertigo Post-menopausal Gout Obesity Essential (primary) hypertension Type 2 diabetes mellitus History of non-ST elevation myocardial infarction (NSTEMI) (06/08/20) Atherosclerotic heart disease of [place] coronary artery without angina pectoris Dizziness Lightheadedness Headache Home Medications ?Medication ?Instructions ?Recorded ?Last Taken ?Type allopurinol 300 mg tablet 300 mg PO DAILY GOUT 06/08/20 06/11/24 History fluoxetine 10 mg capsule See Rx Instructions .Route 11/06/23 06/11/24 Rx .COMPLEX #90 caps atorvastatin 80 mg tablet 80 mg PO QHS cholesterol #90 tabs 11/12/23 06/11/24 Rx amlodipine 5 mg tablet 5 mg PO DAILY #90 tabs 05/12/24 06/11/24 Rx dulaglutide 0.75 mg/0.5 mL 0.75 mg subcut SA 06/13/24 06/07/24 History subcutaneous pen injector ferrous sulfate 325 mg (65 mg 325 mg PO DAILY #30 tabs 06/15/24 Unknown Rx iron) tablet apixaban 5 mg tablet (Eliquis) 2.5 mg PO BID A-fib 07/02/24 Unknown History cholecalciferol (vitamin D3) 125 125 mcg PO DAILY 07/02/24 Unknown History mcg (5,000 unit) capsule furosemide 20 mg tablet 20 mg PO QAM #30 tabs 07/02/24 Unknown Rx Allergy/AdvReac Type Severity Reaction Status Date / Time No Known Allergies Allergy Verified 07/02/24 18:13 Family History (Updated 07/02/24 @ 20:[address] Amanda Almazan MD) Father Myocardial infarction, Onset Age: 52 Diabetes Hypertension CAD (coronary artery disease) Heart disease Mother Aneurysm Uterine cancer Surgical History History of hernia repair History of cholecystectomy History of left heart catheterization (06/09/20) Social History housing: house Smoking Status: Never smoker alcohol intake: never substance use type: does not use what type of physical activity do you participate in: bicycling frequency: 1-2 times per week ROS <JOSHUA Price - Last Filed: 07/02/24 19:09> ROS ED ROS Narrative Constitutional: Negative for fever, chills, weight loss. Generalized weakness Eyes: Negative for vision loss, vision change, double vision ENT: Negative for any sore throat, ear pain, congestion Cardiovascular: Negative for any chest pain, tightness, palpitations Respiratory: Negative for any cough, sputum production, hemoptysis, dyspnea, dyspnea on exertion, orthopnea Gastrointestinal: Negative for any abdominal pain, nausea, vomiting, diarrhea, constipation, blood in stool, blood in vomit : Negative for any urinary frequency, dysuria, retention, blood in urine Muscle skeletal: Negative for any neck pain, back pain Neurological: Negative for any headache, syncope, dizziness Skin: Negative for any rashes, itching, abrasions, lacerations Psychiatric: Negative for any depression, anxiety, stress, suicidal ideation, homicidal ideation Hematologic: Negative for any excessive bruising, easy bleeding EXAM <JOSHUA Price - Last Filed: 07/02/24 19:09> Physical Exam Narrative Exam Narrative: Vital signs reviewed. Patient does have a pale appearance. HEET: Head normocephalic atraumatic, TMs clear bilaterally. Posterior pharynx is clear, dry mucous membranes. Nares clear bilaterally. Neck: Supple with no lymphadenopathy or tenderness. No signs of meningismus. Cardiac: Regular rate and rhythm no murmurs gallops or rubs, equal peripheral pulses bilaterally. Respiratory: Lungs clear to auscultation bilaterally. No chest tenderness. Abdomen: Soft, nontender, nondistended. No abdominal bruit or pulsatile masses. No hepatosplenomegaly Extremities: +1 pitting edema no signs of gross trauma or deformity. Active full range of motion of all extremities. Neuro: Cranial nerves II through XII intact, no focal neurological deficits. Skin: Clean dry and intact with no rash, purpura, petechiae, vesicles or pustules. Backs/flank: No CVA tenderness, no midline spinal tenderness, no deformity. Psych: Normal mood and affect. No SI, HI or acute psychosis. Rectal: Rectal was completed with nurse Maribel, there is no hemorrhoids, internal or external, there was no lali bleeding. There was mild amount of stool in the rectal vault, this was dark in color. Const Vital Signs: 07/02/24 18:09 07/02/24 18:54 Temperature 97.5 F L Temperature Source Oral Pulse Rate 42 L Respiratory Rate 18 Respiratory Effort Normal Respiratory Pattern Normal Blood Pressure 142/61 H Blood Pressure Mean 88 Pulse Ox 98 Oxygen Delivery Method Room Air <Luis Enrique Montelongo MD - Last Filed: 07/02/24 20:13> Physical Exam Const Vital Signs: 07/02/24 18:09 07/02/24 18:54 Temperature 97.5 F L Temperature Source Oral Pulse Rate 42 L Respiratory Rate 18 Respiratory Effort Normal Respiratory Pattern Normal Blood Pressure 142/61 H Blood Pressure Mean 88 Pulse Ox 98 Oxygen Delivery Method Room Air [facility] <JOSHUA Price - Last Filed: 07/02/24 19:09> [facility] Lab Data Labs: Laboratory Results - last 24 hr 07/02/24 07/02/24 18:23 18:32 NT pro BNP II 9182 H Blood Type A POSITIVE Antibody Screen NEGATIVE Crossmatch See Detail Radiography Diagnostic Testing: Clinical Impression(s) from Imaging Studies Chest X-Ray 07/02/24 18:30 IMPRESSION: Small left pleural effusion with left lower lobe atelectasis. Reading Location: [id number] Treatment and Re-Evaluation :: Differential diagnosis includes however is not limited to: Upper GI bleed, lower GI bleed, chronic anemia, dehydration, electrolyte abnormality Patient appears generally well, vital signs are stable, patient is nontoxic-appearing. Presenting to the Emergency Department with complaints of weakness, abnormal lab values. I did look at the patient's lab values from today, the anemia was a hemoglobin of 6.4 with a GERBER with a creatinine of 3.6. I did perform a rectal exam, stool was dark, so we sent. Patient was given 1 L normal saline, the patient will likely receive blood. Patient will need to be admitted to the hospital. Patient was positive for blood in stool. At this time, patient be typed and crossed and given 2 units of packed red blood cells. Patient was given 1 L normal saline. Patient will be admitted to the hospital. <Luis Enrique Montelongo MD - Last Filed: 07/02/24 20:13> [facility] Narrative Medical decision making narrative: Dr. Montelongo: I have personally performed a face to face assessment of the patient and have reviewed the JASON Note. I performed a substantive portion of the visit including all aspects of the following. My cutler findings include: History is abnormal laboratory work as an outpatient. Anemia with history of rectal bleeding/hemorrhoids. On Eliquis. Also sent for elevated creatinine with history of CKD. Exam is afebrile. Vital signs noted. Nontoxic-appearing. Cardiovascular examination regular rate and rhythm, lungs clear to auscultation bilaterally, abdomen soft and nontender. Neurological examination nonfocal and nonlateralizing. Skin examination does show mild pallor. Medical Decision Making: I reviewed her outpatient laboratory work and she has a hemoglobin of 6.3. Check rectal exam. Rectal exam per DEVELOPMENT AND HOUSING DIRECTOR. No gross hemorrhage. Darker stool that is Hemoccult positive. Suspicion for higher bleed and hemorrhoid. Chest x-ray obtained and interpreted by myself which shows left pleural effusion. I reviewed the radiology report which confirms my independent interpretation. Type and cross. Transfuse. Admit. Other additions or changes: [None] History & Record Review Discussion w/independent historian: Patient and Family Lab Data Attestation: I reviewed the patient's lab results. Labs: Laboratory Results - last 24 hr 07/02/24 07/02/24 18:23 18:32 NT pro BNP II 9182 H Blood Type A POSITIVE Antibody Screen NEGATIVE Crossmatch See Detail Radiography Chest X-Ray - ED: Read by ED Physician and Read by Radiologist Diagnostic Testing: Clinical Impression(s) from Imaging Studies Chest X-Ray 07/02/24 18:30 IMPRESSION: Small left pleural effusion with left lower lobe atelectasis. Reading Location: [id number] Management Discussion w/another healthcare provider: Hospitalist Discharge Plan Dx/Rx/DC Orders Clinical Impression: Acute upper GI bleeding, Blood in stool, GERBER (acute kidney injury), Acute anemia Disposition Disposition: Acute Care Hospital [facility]
--- NOTE | 2024-07-02 18:30 | RAD_ITS ---
PROCEDURE: CHEST 1 VIEW (PORTABLE) 07/02/2024 REASON FOR EXAM: COUGH TECHNIQUE: Frontal view of the chest. COMPARISON: 06/13/2024 FINDINGS: Hardware: None Heart: Cardiac and mediastinal contours are stable. Lungs: Small left pleural effusion with some left lower lobe atelectasis. Elevated right hemidiaphragm. Bones: The bones are unremarkable. Other: RAD/Chest 1 View (Portable) IMPRESSION: Small left pleural effusion with left lower lobe atelectasis. Reading Location: [id number]
--- NOTE | 2024-07-02 19:05 | PCM.HP.STD ---
HPI - General General Date of Admission: 07/02/24 Date of Service: 07/02/24 Chief Complaint: Abnormal labs, dark stools. HPI Narrative The patient is a 79 y/o F w/ PMHx: HFpEF, HTN, HLD, CAD status post STEMI 06/08/2020, Chronic anemia/Fe deficiency anemia, Valvular Heart Disease, Diabetes mellitus type II, Gout, Anxiety and Depression who presents to the [facility] ED on with history of recent increased dark stools with issues recently with the patient reported bleeding hemorrhoids with PCP evaluation on day of presentation as well as cardiology with outpatient CBC and BMP with hemoglobin noted to be 6.4 and renal function with worsening creatinine noted to be 3.6 prompting referral to the ED for evaluation. In the ED upon evaluation no visualized external hemorrhoids and no noted internal hemorrhoids and no lali bleeding. Noted mild amount of stool in the rectal vault that was dark in color. Patient recently seen earlier in the day by cardiology and from their note unfortunately she was supposed to have stopped aspirin and only continued low-dose Eliquis twice daily at the end of May when she had noted worsening anemia but she continued to take the aspirin in addition. She denies any recent lightheadedness, dizziness, chest pain, dyspnea and notes that her follow-up and labs were primarily for routine evaluation. Workup in the ED included T97.5, heart rate 42, BP 142/61, respiratory rate 18, 98% on room air, pending ED initiated type and cross for 2 units as well as BNP with no other labs obtained aside from noted positive stool guaiac. Outpatient labs earlier in the day with noted CBC with WBC 7.6, hemoglobin 6.3, MCV 100 without marked shift, BMP with BUN/creatinine 38/3.36 with GFR 14. [facility] Medical History Current use of anticoagulant therapy Severe anemia Aortic stenosis (HFpEF) heart failure with preserved ejection fraction Atrial fibrillation Abnormal EKG Arrhythmia Bilateral knee pain Stool incontinence Elevated brain natriuretic peptide (BNP) level Shortness of breath Anemia Bilateral lower extremity edema Post-viral cough syndrome Hypercalcemia Health care maintenance Vertigo Post-menopausal Gout Obesity Essential (primary) hypertension Type 2 diabetes mellitus History of non-ST elevation myocardial infarction (NSTEMI) (06/08/20) Atherosclerotic heart disease of [place] coronary artery without angina pectoris Dizziness Lightheadedness Headache Home Medications ?Medication ?Instructions ?Recorded ?Last Taken ?Type allopurinol 300 mg tablet 300 mg PO DAILY GOUT 06/08/20 06/11/24 History fluoxetine 10 mg capsule See Rx Instructions .Route 11/06/23 06/11/24 Rx .COMPLEX #90 caps atorvastatin 80 mg tablet 80 mg PO QHS cholesterol #90 tabs 11/12/23 06/11/24 Rx amlodipine 5 mg tablet 5 mg PO DAILY #90 tabs 05/12/24 06/11/24 Rx dulaglutide 0.75 mg/0.5 mL 0.75 mg subcut SA 06/13/24 06/07/24 History subcutaneous pen injector ferrous sulfate 325 mg (65 mg 325 mg PO DAILY #30 tabs 06/15/24 Unknown Rx iron) tablet apixaban 5 mg tablet (Eliquis) 2.5 mg PO BID A-fib 07/02/24 Unknown History cholecalciferol (vitamin D3) 125 125 mcg PO DAILY 07/02/24 Unknown History mcg (5,000 unit) capsule furosemide 20 mg tablet 20 mg PO QAM #30 tabs 07/02/24 Unknown Rx Allergy/AdvReac Type Severity Reaction Status Date / Time No Known Allergies Allergy Verified 07/02/24 18:13 Family History (Updated 07/02/24 @ 20:[address] Amanda Almazan MD) Father Myocardial infarction, Onset Age: 52 Diabetes Hypertension CAD (coronary artery disease) Heart disease Mother Aneurysm Uterine cancer Surgical History History of hernia repair History of cholecystectomy History of left heart catheterization (06/09/20) Social History housing: house Smoking Status: Never smoker alcohol intake: never substance use type: does not use what type of physical activity do you participate in: bicycling frequency: 1-2 times per week Vital Signs Vital Signs Vital Signs: 07/02/24 18:09 07/02/24 18:54 Temperature 97.5 F L Temperature Source Oral Pulse Rate 42 L Respiratory Rate 18 Respiratory Effort Normal Respiratory Pattern Normal Blood Pressure 142/61 H Blood Pressure Mean 88 Pulse Ox 98 Oxygen Delivery Method Room Air Weight Weight: 171 lb Body Mass Index (BMI) 31.2 Physical Exam Narrative Physical Examination: General: Awake, alert, oriented x 3 and cooperative, seated upright in the ED bed in no apparent distress. Skin: Mildly pale color, normal turgor, no icterus, no cyanosis. HEENT: AT/NC, EOMI, PERRLA, MMM, no carotid bruits or JVD noted. Lungs: Mildly diminished, greater bases, appropriate, minimal crackles bases BL, no ronchi or wheezing. Heart: Irregular, bradycardic; no gallop, rub audible, + SM. Abdomen: Soft, obese, NTTP, ND, hyperactive BS, no appreciated HSM. Extremities: No cyanosis, no clubbing, mild ankle distal bellamy 1+ pitting edema which is reported as chronic. Neurological: Patient awake, alert, oriented as noted, cognitive function intact; pupils equally reactive to light and accommodation, cranial nerves gross normal, moving all 4 extremities, no focal deficits, strength mildly globally decreased. Psychiatric: Affect appears mildly fatigued otherwise normal, no acute evidence of depressive or anxiety feelings but does have underlying history. Results Lab / Micro Data Labs: Laboratory Results - last 24 hr 07/02/24 18:32: Blood Type A POSITIVE Micro: Microbiology 07/02/24 18:32 Stool Stool Occult Blood (PUNEET) - Final Occult Blood Positive Assessment & Plan Assessment/Plan (1) Acute anemia: (2) GERBER (acute kidney injury): (3) Acute upper GI bleeding: PLAN: Plan The patient is a 79 y/o F w/ PMHx: HFpEF, HTN, HLD, CAD status post STEMI 06/08/2020, Chronic anemia/Fe deficiency anemia, Valvular Heart Disease, Diabetes mellitus type II, Gout, Anxiety and Depression who presents to the [facility] ED on with history of recent increased dark stools with issues recently with the patient reported bleeding hemorrhoids with PCP evaluation on day of presentation as well as cardiology with outpatient CBC and BMP with hemoglobin noted to be 6.4 and renal function with worsening creatinine noted to be 3.6 prompting referral to the ED for evaluation. #1. Acute GI Bleed w/ resultant Acute on chronic anemia/iron deficiency anemia: Admission hemoglobin 6.3, guaiac positive, baseline hemoglobin more recently 7 range however patient has slowly tended down since the end of 2023, will hold Eliquis therapy, hold aspirin therapy concurrently, obtain serial H+H q 4 hours, continue with ED plan of 2 unit PRBC administration, will maintain on IV PPI, will allow clear liquids with n.p.o. status after midnight, will request GI involvement, PT/OT/case management consult for discharge planning. Continue iron oral supplementation. #2. Acute kidney injury on CKD stage III unclear subtype per GFR trending, appears progressive since 2023 but worsened more acutely recent: Unclear exact etiology, possibly hypoperfusion with anemia but also complicated by overlying underlying heart failure component, admission BUN/Cr 38/3.36, GFR 14, prior baseline creatinine noted to be more recently 2.2-2.6, creatinine 2.26, will very judicious hydrate, hold nephrotoxic medications and repeat chemistry in AM. Will obtain renal ultrasound, urinalysis and FeNa assessment. Low threshold to involve nephrology if not improving. #3. HFpEF: As noted under valvular heart disease most recent echocardiogram 06/13/2024, holding aspirin and Eliquis given acute presentation as noted #1, continue statin therapy, holding Lasix given acute kidney injury, if necessary may consider pulsed dose Lasix between PRBC units if any concerns arise for overload, BNP for baseline ordered per ED physician. #4. Diabetes mellitus type II: Hold oral home regimen, maintain clears and n.p.o. status given acute presentation as noted above, maintain in the interim on every 6 hour accu checks w/ ISS. #5. Valvular heart disease: 06/13/2024 echocardiogram with EF 55 to 60% with normal RV, LA moderately enlarged, severe mitral and calcification, 1+ MR, mild TR with known history of aortic stenosis with aortic valve area calculated 1.1 cm with maximum gradient 40.8 mm, mean gradient of 19. #6. CAD: Status post NSTEMI 06/08/2020 status post cardiac catheterization with severe diffuse disease in the mid to distal LAD not amenable to revascularization, mild right coronary and circumflex disease treated medically since that point, most recent cardiology visit on day of presentation, given acute on chronic anemia temporarily holding aspirin, Eliquis, not on beta-sophia with noted significant bradycardia, not on GORGE inhibitor/ARB which would be held regardless given GERBER, continue statin therapy. #7. Hypertension: Continue home regimen including amlodipine, holding all nephrotoxic agents otherwise as noted, PRN hydralazine. #8. Hyperlipidemia: Continue home statin regimen. #9. Anxiety and depression: Will temporally hold home fluoxetine regimen given significantly worsened renal function, resume once clinically appropriate. #10. Persistent atrial fibrillation: Patient not on rate or rhythm agent, heart rate bradycardic in the ED, holding aspirin and Eliquis as noted given acute presentation #1. #11. Gout: Will continue patient home allopurinol regimen. #12. DVT prophylaxis: SCDs. #13. CODE status: Patient RICKY is her sister who is present and living will is currently in place. Discussed CODE status at length including difference between FULL code, DNR-CCA and DNR-CC status. Following discussions about the differences in these status, requested Full Code status. Advanced Care Planning Face to Face Time: 16 minutes. Charges/Coding Visit Charges Inpatient E&M: 70805 Init Hosp L3 Procedures Hospitalists Procedures: 15703 Advncd Care Plan 30 Min
[2024-07-02 19:09] LABS: Pro- Brain NATRIURETIC PEPTIDE 9182 pg/mL (<=1800)
[2024-07-02 20:18] LABS: Magnesium 2.1 mg/dL (1.5-2.2)
[2024-07-02] MEDS: Pantoprazole Sodium 80 MG in 0.9% Normal Saline (50mL Bag) 15 ML 420 MG IV BOLUS (20:53)
[2024-07-02] MEDS: Pantoprazole Sodium 80 MG in 0.9% Normal Saline (100mL Bag) 80 ML 10 MG CONT INF (20:54)
[2024-07-02] MEDS: Atorvastatin Calcium 80 MG Tablet PO (20:56)
[2024-07-02 21:32] LABS: Bedside Glucose 140 mg/dL (74-106)
[2024-07-02 21:33] LABS: Mucous, Urine 0 SEEN /hpf (<or=2+)
[2024-07-02 21:35] LABS: Color, Urine Yellow (Yellow); Glucose, Dipstick Normal (Normal); Ketone-Dipstick Negative (Negative); Leukocyte Esterase-Dipstick 100 /ul (Negative); Nitrite-Dipstick Negative (Negative); Occult Blood-Urine 10 /ul (Negative); Protein-Dipstick 500 mg/dl (Negative); Urine Bilirubin Dipstick Negative (Negative); Urine Clarity Cloudy (Clear); Urine Urobilinogen Normal (Normal)
--- NOTE | 2024-07-02 21:36 | EKG12_ITS ---
Test Reason : PRE-OP Blood Pressure : */* mmHG Vent. Rate : 67 BPM Atrial Rate : * BPM P-R Int : * ms QRS Dur : 70 ms QT Int : 412 ms P-R-T Axes : * 107 3 degrees QTcB Int : 435 ms Atrial fibrillation with premature ventricular or aberrantly conducted complexes Septal infarct (cited on or before 21-Aug-2023) Lateral infarct (cited on or before 13-Jun-2024) ST & T wave abnormality, consider inferior ischemia Abnormal ECG Confirmed by Victor Hugo Garcia ([id number]), acquisition editor KATIE SOLIS ([id number]) on 07/04/2024 7:09:10 AM Referred By: FAYE Confirmed By: Victor Hugo Garcia
[2024-07-02 22:02] LABS: Red Blood Cells-Urine 5-10 SEEN /hpf (0-5); White Blood Cells 50-100 SEEN /hpf (0-5)
[2024-07-02 22:03] LABS: Bacteria 4+ /hpf (None Seen); Squamous Epithelial Cells - UA 0-5 SEEN /hpf (5-10)
[2024-07-02 22:05] LABS: Hyaline Cast 0-5 SEEN /lpf (0-5)
[2024-07-02 22:08] LABS: Urine Sodium 59 mmol/L (Not Establ.)
[2024-07-03] VITALS (19 sets, daily range): BP systolic 108–177; BP diastolic 61–92; PULSE 62–81; RESP 16–20; TEMP 36.3–36.8; O2SAT 91–98; BMI 30.7
[2024-07-03] MEDS: 0.9% Normal Saline (1000mL) 1,000 ML 75 ML IV (01:32)
[2024-07-03] MEDS: 0.9% Saline Lock 10 ML Syringe IV ×2 (01:32→20:10)
[2024-07-03 01:58] LABS: Bedside Glucose 120 mg/dL (74-106)
[2024-07-03 02:55] LABS: Absolute Lymphocyte Count 1.14 X10^3/uL (0.83-4.51); Absolute Neutrophil Count 5.2 X10^3/uL (2.0-7.7); Basophil# 0.05 X10^3/uL; Basophil% 0.7 % (0-1); Eosinophil# 0.14 X10^3/uL; Hematocrit 27.4 % (37-47); Hemoglobin 8.9 g/dL (12.0-15.0); Lymphocyte # 1.14 X10^3/ul (0.83-4.51); Lymphocyte % 16.4 % (19-41); Mean Corp Hgb Conc 32.5 g/dL (32-36); Mean Corpuscular Hgb 30.5 pg (27.0-32.0); Mean Corpuscular Volume 93.8 fL (81-99); Mean Platelet Vol. 10.1 fl (6.2-12.0); Monocyte% 5.8 % (0-10); NRBC Flagged by Analyzer 0.4 % (0-5); Neutrophil # 5.21 X10^3/uL (2.7-7.7); Platelet Count 196 K/mm3 (150-450); RBC Distribution Width CV 18.4 % (11.6-14.6); RBC Distribution Width SD 61.6 fl (35.1-43.9); Red Blood Count 2.92 M/mm3 (4.2-5.4)
[2024-07-03 03:20] LABS: International Normalized Ratio 1.8; Prothrombin Time (Protime)PT. 21.4 SECONDS (11.7-14.9)
[2024-07-03 03:21] LABS: Partial Thromboplast Time 42.7 Seconds (24.1-36.2)
[2024-07-03 03:27] LABS: ALB/GLOB Ratio 1.3 RATIO (0.9-2.4); AST(SGOT) 29 U/L (<=31); Alanine Aminotransfer ALT/SGPT 19 U/L (<=34); Albumin, Serum 3.7 g/dL (3.4-4.8); Alkaline Phosphatase 102 U/L (35-104); Anion Gap 13 (5-15); BUN 42 mg/dL (4-19); BUN/Creat Ratio 13.2 RATIO (10-20); Calcium,Total 10.2 mg/dL (7.6-11.0); Carbon Dioxide 19.7 mmol/L (21.0-32.0); Chloride 106 mmol/L (98-108); Creatinine, Serum 3.19 mg/dL (0.70-1.20); EST Glomerular Filtration Rate 14 (>60); Estimated Creatinine Clearance 14.11 ml/min (50-250); Globulin 2.8 g/dL (2.2-4.2); Glucose 119 mg/dL (70-99); Potassium 4.5 mmol/L (3.3-5.1); Protein, Total 6.5 g/dL (5.9-8.4); Sodium Level 138 mmol/L (133-145); Total Bilirubin 0.89 mg/dL (0.00-1.30)
--- NOTE | 2024-07-03 05:55 | US_ITS ---
PROCEDURE: KIDNEY AND BLADDER 07/03/2024 REASON FOR EXAM: GERBER ON CKD, WORSENING TECHNIQUE: Bilateral renal ultrasound. COMPARISON: Comparison is made with prior study dated June 13, 2024. FINDINGS: Kidneys: Normal renal sizes, parenchymal thicknesses, and echotextures. [place]: No evidence of hydronephrosis. Cysts or Masses: No cysts or large solid renal masses. RIGHT Kidney Size: 10.2 cm x 5.1 cm x 5.2 cm Volume: 141.7 mL Cortical Thickness (if discernible): 1.4 cm (>6mm is normal) LEFT Kidney Size: 9.9 cm x 5.1 cm x 5 cm Volume: 133.7 mL Cortical Thickness (if discernible): 1.3 cm (>6mm is normal) Bladder: Unremarkable. US/Kidney and Bladder IMPRESSION: NORMAL RENAL ULTRASOUND. Reading Location: [id number]
[2024-07-03] MEDS: Pantoprazole Sodium 80 MG in 0.9% Normal Saline (100mL Bag) 80 ML 10 MG CONT INF ×2 (06:38→20:03)
[2024-07-03 06:49] LABS: Hematocrit 25.6 % (37-47); Hemoglobin 8.3 g/dL (12.0-15.0)
[2024-07-03 07:04] LABS: Bedside Glucose 93 mg/dL (74-106)
--- NOTE | 2024-07-03 07:16 | PN.HOSP_ITS ---
Reason for Visit Reason for Visit: Diagnoses Anemia, unspecified (07/02/24) Gastrointestinal hemorrhage, unspecified (07/02/24) Acute kidney failure, unspecified (07/02/24) Subjective Subjective Patient is a 79-year-old lady with history of paroxysmal atrial fibrillation on systemic anticoagulation with apixaban who presented to the emergency department with melena. Patient hemoglobin on admission was 6.3. She was also noted to have worsening kidney function with creatinine up to 3.36 from a baseline of 2.5. Objective Data Objective Data Vital Signs: Vital Signs Temp Pulse Resp BP Pulse Ox O2 Del Method 98 F 63 17 157/76 H 95 Room Air 07/03/24 03:00 07/03/24 03:00 07/03/24 03:00 07/03/24 03:00 07/03/24 03:00 07/03/24 03:00 Oxygen Delivery Method Room Air Weight: 76.1 kg Body Mass Index (BMI) 30.7 Intake & Output: Intake and Output for Last 24 Hours 07/01/24 07/02/24 07/03/24 23:59 23:59 23:59 Intake Total 1035 / 1035 97.33 / 97.33 Balance 1035 / 1035 97.33 / 97.33 Lab / Micro Data 07/03/24 06:34 07/03/24 02:46 Labs: Laboratory Results - last 24 hr 07/02/24 18:23: Magnesium 2.1, NT pro BNP II 9182 H, Crossmatch See Detail 07/02/24 18:32: Blood Type A POSITIVE, Antibody Screen NEGATIVE 07/02/24 21:14: POC Glucose 140 H 07/02/24 21:25: Urine Color Yellow, Urine Clarity Cloudy, Urine pH 5.0, Ur Specific [place] 1.020, Urine Protein 500 H, Urine Glucose (UA) Normal, Urine Ketones Negative, Urine Occult Blood 10 H, Urine Nitrite Negative, Urine Bilirubin Negative, Urine Urobilinogen Normal, Ur Leukocyte Esterase 100 H, Urine RBC 5-10 SEEN, Urine WBC 50-100 SEEN, Ur Squamous Epith Cells 0-5 SEEN, Urine Bacteria 4+, Hyaline Casts 0-5 SEEN, Urine Mucus 0 SEEN, Ur Random Sodium 59, Urine Creatinine 114.00 07/03/24 01:37: POC Glucose 120 H 07/03/24 02:46: WBC 7.0, RBC 2.92 L, Hgb 8.9 L, Hct 27.4 L, MCV 93.8 D, MCH 30.5, MCHC 32.5 D, RDW Std Deviation 61.6 H, RDW Coeff of [place] 18.4 H, Plt Count 196, MPV 10.1, Immature Gran % (Auto) 0.100, Neut % (Auto) 75.0 H, Lymph % (Auto) 16.4 L, [place] % (Auto) 5.8, Eos % (Auto) 2.0, Baso % (Auto) 0.7, Absolute Neuts (auto) 5.2, Absolute Lymphs (auto) 1.14, Nucleated RBC % 0.4, PT 21.4 H, INR 1.8, APTT 42.7 H, Sodium 138, Potassium 4.5, Chloride 106, Carbon Dioxide 19.7 L, Anion Gap 13, BUN 42 H, Creatinine 3.19 H, Estim Creat Clear Calc 14.11 L, Est GFR (MDRD) Non-Af 14 L, BUN/Creatinine Ratio 13.2, Glucose 119 H, Calcium 10.2, Total Bilirubin 0.89, AST 29, ALT 19, Alkaline Phosphatase 102, Total Protein 6.5, Albumin 3.7, Globulin 2.8, Albumin/Globulin Ratio 1.3 07/03/24 06:34: Hgb 8.3 L, Hct 25.6 L 07/03/24 06:44: POC Glucose 93 Micro: Microbiology 07/02/24 18:32 Stool Stool Occult Blood (PUNEET) - Final Occult Blood Positive Radiography Diagnostic Testing: Radiology Impression Chest X-Ray 07/02/24 18:30 IMPRESSION: Small left pleural effusion with left lower lobe atelectasis. Reading Location: [facility] Physical Exam Narrative GENERAL: Dyspneic at rest HEENT: Atraumatic; normocephalic EYES; Anicteric, Normal Conjunctiva NECK; supple, normal thyroid, RESPIRATORY: Diminished to auscultation CARDIOVASCULAR: Regular S1 S2, GI: soft, normoactive bowel sounds, : No Renal angle tenderness; EXTREMITIES: Bipedal edema, no clubbing, MUSCULOSKELETAL: no muscle wasting NEURO: Awake; no lateralizing signs. SKIN: No Rash PSYCH; Flat affect Assessment & Plan Assessment/Plan (1) Acute anemia: (2) GERBER (acute kidney injury): (3) Acute upper GI bleeding: PLAN: Plan Patient is a 79-year-old lady with history of paroxysmal atrial fibrillation on systemic anticoagulation with apixaban who presented to the emergency department with melena. Patient hemoglobin on admission was 6.3. She was also noted to have worsening kidney function with creatinine up to 3.36 from a baseline of 2.5. 1. Anemia ? Secondary to acute on chronic blood loss anemia exacerbated by the use of systemic anticoagulant?apixaban. Patient hemoglobin on admission was 6.3. Patient apixaban and aspirin held. Admitted to regular nursing floor patient was transfused with 2 unit PRBC from the ED started on PPI and consultation placed to GI 2. Acute kidney injury Superimposed on chronic kidney disease stage III. Has been a gradual worsening of patient kidney function. Patient is on furosemide held on admission. Renal ultrasound ordered and consultation placed to nephrology 3. Acute on chronic congestive heart failure ? With preserved ejection fraction patient has a known EF of 55 to 60%. Patient furosemide held in view of above reasons. Patient however is currently in acute congestive heart failure following the blood transfusion as well as her diuretics subsequently held. Patient diuretics restarted. Strict input and output, daily weight, as well as fluid restriction. 4. Paroxysmal A-fib ? Rate controlled. Patient previously did not tolerate metoprolol as a result of bradycardia. Patient is on apixaban held in view of her acute GI bleed 5. Coronary artery disease ? Patient has known history of ASCVD not amenable to PCI cardiology recommended optimization of medical therapy. Cardiology also recommended that discontinuation of aspirin 6. Class I obesity with BMI of 31 ? Weight loss advised 7. Dyslipidemia ?Patient is on statin therapy, continued at home dose 8. Diabetes mellitus type 2 ? Placed on Accu-Cheks before meals and at bedtime with sliding scale coverage 9. Hypertension ? Blood pressure controlled, home medications continued with dose adjustment as needed 10. Gout ? Patient is on allopurinol did continue 11. Depression with anxiety ? Patient is on fluoxetine did continue 12. Physical deconditioning ? Requested for PT OT eval and social research assistant to assist with discharge planning 13. DVT prophylaxis ? On apixaban held as a result of GI bleed Charges/Coding Visit Charges Inpatient E&M: 77309 Subs Hosp L3
[2024-07-03] MEDS: Furosemide 40 MG/4 ML Vial IV ×2 (09:14→20:03)
[2024-07-03] MEDS: amLODIPine 5 MG Tablet PO (09:19)
--- NOTE | 2024-07-03 10:06 | CASEMGMT ---
VICKY RICE Assessment: Face to Face with pt for initial transition planning/care coordination assessment. RN KRYSTAL introduced self and role at [facility], pt voices understanding and consents to assessment. Pt is A&O x4 and answers all questions appropriately at this time. Pt sitting up in chair in no distress. Sister sitting at bedside, pt agreeable to DC planning with sister in room. Care providers, pharmacy, and demographics verified/updated. Strata: 3 Admitting Dx: GI Bleed ABLA GERBER PCP: [facility] Specialists: Denies Preferred Pharmacy: [facility] Insurance: [employer] [facility] Prescription Benefit: yes LNOK: Naomy Wills Living Arrangements: Pt lives alone in a single story home with 2 steps to enter. ADLs: Pt states I at baseline with ADL's, starting to need some assistance with IADLs. Sister and son help her. Transportation: Pt family provides transportation. DME: glucometer and supplies, cane, walker, grab bars, rollator, bedside commode. HHC/SNF: Denies Hx of. Pt states no concerns with going home at time of dc. Pt states no further concerns/needs. CM to follow. Advised pt to ask CM if any further question/concerns/needs arise, voices understanding. Pt Goal: Home Plan: Home with family support, follow for safe DC. Fredy PERRY CM
--- NOTE | 2024-07-03 11:32 | CON.PCM.RE_ITS ---
Assessment & Plan Assessment/Plan (1) GERBER (acute kidney injury): (2) CKD (chronic kidney disease) stage 3, GFR 30-59 ml/min: (3) Acute anemia: PLAN: Plan This is a pleasant 79-year-old female with past medical history significant for hypertension, coronary artery disease status post STEMI May 2020, hyperlipidemia, chronic anemia, valvular heart disease, diabetes mellitus type 2, anxiety and depression, heart failure preserved EF (echo 06/13/2024: EF 55 to 60%, normal LV systolic function) who was referred to the emergency room for abnormal lab work, elevated creatinine above baseline and anemia. Nephrology consulted in view of elevated creatinine. In reviewing past creatinine trends patient has had elevated creatinine dating back to at least 2020. Baseline creatinine as of January 2024 ranging around 1.4 to 1.7 mg/dL. During patient's last hospitalization from June 13 to June 16 creatinine at time of hospital discharge was 2.26 on June 16, her creatinine did peak at 2.6 during that hospitalization. In the emergency room yesterday creatinine 3.36, today patient's creatinine is 3.19. Potassium and bicarb acceptable. GERBER likely prerenal in setting of hemodynamics, anemia. Patient does have good urine output and reports urine output has picked up after receiving IV Lasix. Patient is on room air. Volume status appears to have improved. Will cut back Lasix from 3 times daily to twice daily. Renal ultrasound last admission no hydronephrosis. CKD stage III possibly from diabetic nephropathy, patient has evidence of proteinuria. Will check urine protein creatinine ratio and UA. No acute indication for renal placement therapy. Further orders forthcoming as hospitalization evolves, thank you for allowing us to participate in the care of Ms. Garvin. Will arrange for outpatient nephrology follow-up at the time of hospital discharge. Assessment and plan reviewed with Dr. Haider. HPI Consult Data Date of Consult: 07/03/24 HPI Narrative HPI Narrative: MARGOT GARVIN, is a 79 F with past medical history significant for hypertension, coronary artery disease status post STEMI May 2020, hyperlipidemia, chronic anemia, valvular heart disease, diabetes mellitus type 2, anxiety and depression, heart failure preserved EF who presented to emergency room yesterday because of abnormal lab work and dark-colored stools. Patient had been seen by her PCP, had lab work done and noted to have hemoglobin of 6.4, creatinine 3.6. Patient was admitted for further evaluation and treatment. Nephrology consulted in view of elevated creatinine. Patient and sister who is at bedside states patient has not been seen by nephrology in past. In reviewing past creatinine trends, as of late 2023 baseline creatinine range around 1.4-1.7. Patient was in the hospital just a few weeks ago, admitted for shortness of breath, bradycardia and heart failure (echo EF 55 to 60%). At time of hospital discharge she was discharged on Lasix 20 mg twice daily and Eliquis which was no. Lisinopril and metformin were discontinued last admission. Today patient reports that she had developed some shortness of breath after receiving IV fluids and blood products, she was given dose of Lasix this morning and reports much relief with breathing. Patient states she does have some edema to her legs but states this is better than has been in past. Patient denies any nausea or vomiting. Patient does report she had taken ibuprofen in past but currently only takes acetaminophen, no longer takes NSAIDs. [facility] Medical History Current use of anticoagulant therapy Severe anemia Aortic stenosis (HFpEF) heart failure with preserved ejection fraction Atrial fibrillation Abnormal EKG Arrhythmia Bilateral knee pain Stool incontinence Elevated brain natriuretic peptide (BNP) level Shortness of breath Anemia Bilateral lower extremity edema Post-viral cough syndrome Hypercalcemia Health care maintenance Vertigo Post-menopausal Gout Obesity Essential (primary) hypertension Type 2 diabetes mellitus History of non-ST elevation myocardial infarction (NSTEMI) (06/08/20) Atherosclerotic heart disease of [place] coronary artery without angina pectoris Dizziness Lightheadedness Headache Home Medications ?Medication ?Instructions ?Recorded ?Last Taken ?Type allopurinol 300 mg tablet 300 mg PO DAILY GOUT 1 06/11/24 History fluoxetine 10 mg capsule See Rx Instructions .Route 0 11/06/23 06/11/24 Rx .COMPLEX #90 caps atorvastatin 80 mg tablet 80 mg PO QHS cholesterol #90 tabs 11/12/23 06/11/24 Rx amlodipine 5 mg tablet 5 mg PO DAILY #90 tabs 05/1206/11/24 Rx dulaglutide 0.75 mg/0.5 mL 0.75 mg subcut SA 06/13/24 06/07/24 History subcutaneous pen injector ferrous sulfate 325 mg (65 mg 325 mg PO DAILY #30 tabs 06/15/24 Unknown Rx iron) tablet apixaban 5 mg tablet (Eliquis) 2.5 mg PO BID A-fib Unknown History cholecalciferol (vitamin D3) 125 125 mcg PO DAILY 06/17 09/10 Unknown History mcg (5,000 unit) capsule furosemide 20 mg tablet 20 mg PO QAM #30 tabs Unknown Rx Allergy/AdvReac Type Severity Reaction Status Date / Time No Known Allergies Allergy Verified 07/02/24 18:13 Family History (Updated 07/02/24 @ 20:[address] Amanda Almazan MD) Father Myocardial infarction, Onset Age: 52 Diabetes Hypertension CAD (coronary artery disease) Heart disease Mother Aneurysm Uterine cancer Surgical History History of hernia repair History of cholecystectomy History of left heart catheterization (06/09/20) Social History housing: house Smoking Status: Never smoker alcohol intake: never substance use type: does not use what type of physical activity do you participate in: bicycling frequency: 1-2 times per week ROS ROS Narrative As in HPI Physical Exam Narrative Alert and oriented, no apparent distress. Sitting in chair S1, S2, RRR Lungs sound clear anteriorly and posteriorly. No wheezes, rhonchi or rales. On room air Abdomen soft, nontender Trace to 1+ pitting edema bilateral lower legs Lab / Micro Data 07/03/24 06:34 07/03/24 02:46 Labs: Laboratory Results - last 24 hr 07/02/24 18:23: Magnesium 2.1, NT pro BNP II 9182 H, Crossmatch See Detail 07/02/24 18:32: Blood Type A POSITIVE, Antibody Screen NEGATIVE 07/02/24 21:14: POC Glucose 140 H 07/02/24 21:25: Urine Color Yellow, Urine Clarity Cloudy, Urine pH 5.0, Ur Specific [place] 1.020, Urine Protein 500 H, Urine Glucose (UA) Normal, Urine Ketones Negative, Urine Occult Blood 10 H, Urine Nitrite Negative, Urine Bilirubin Negative, Urine Urobilinogen Normal, Ur Leukocyte Esterase 100 H, Urine RBC 5-10 SEEN, Urine WBC 50-100 SEEN, Ur Squamous Epith Cells 0-5 SEEN, Urine Bacteria 4+, Hyaline Casts 0-5 SEEN, Urine Mucus 0 SEEN, Ur Random Sodium 59, Urine Creatinine 114.00 07/03/24 01:37: POC Glucose 120 H 07/03/24 02:46: WBC 7.0, RBC 2.92 L, Hgb 8.9 L, Hct 27.4 L, MCV 93.8 D, MCH 30.5, MCHC 32.5 D, RDW Std Deviation 61.6 H, RDW Coeff of [place] 18.4 H, Plt Count 196, MPV 10.1, Immature Gran % (Auto) 0.100, Neut % (Auto) 75.0 H, Lymph % (Auto) 16.4 L, [place] % (Auto) 5.8, Eos % (Auto) 2.0, Baso % (Auto) 0.7, Absolute Neuts (auto) 5.2, Absolute Lymphs (auto) 1.14, Nucleated RBC % 0.4, PT 21.4 H, INR 1.8, APTT 42.7 H, Sodium 138, Potassium 4.5, Chloride 106, Carbon Dioxide 19.7 L, Anion Gap 13, BUN 42 H, Creatinine 3.19 H, Estim Creat Clear Calc 14.11 L, Est GFR (MDRD) Non-Af 14 L, BUN/Creatinine Ratio 13.2, Glucose 119 H, Calcium 10.2, Total Bilirubin 0.89, AST 29, ALT 19, Alkaline Phosphatase 102, Total Protein 6.5, Albumin 3.7, Globulin 2.8, Albumin/Globulin Ratio 1.3 07/03/24 06:34: Hgb 8.3 L, Hct 25.6 L 07/03/24 06:44: POC Glucose 93 Micro: Microbiology 07/02/24 18:32 Stool Stool Occult Blood (PUNEET) - Final Occult Blood Positive Imaging Radiology Impression Chest X-Ray 07/02/24 18:30 IMPRESSION: Small left pleural effusion with left lower lobe atelectasis. Reading Location: [id number]
[2024-07-03 12:02] LABS: Bedside Glucose 97 mg/dL (74-106)
[2024-07-03 16:35] LABS: Protein:Creat Ratio 6063 mg/g CRE (0-200)
[2024-07-03 16:51] LABS: Bedside Glucose 88 mg/dL (74-106)
--- NOTE | 2024-07-03 18:47 | PCM.PRE.AN2 ---
ASA Classification* ASA Classification ASA Classification: 3 and E Assessment & Plan Anesthesia* Anesthesia Assessment Anesthesia Assessment: Discussed sedation and/or anesthesia options, risks, benefits, and alternatives with patient/parents/legal guardian/POA. Questions invited. The patient/parents/legal guardian/POA seems to understand and agrees to proceed with anesthesia plan. Reviewed the physical assessment, medical history, allergy history and patient home medications list prior to surgery/procedure/anesthetic and documented any changes. Performed airway and anesthesia risk assessments. Anesthesia Type Anesthesia Type: MAC History Source History Obtained from:: Patient and Chart Anesthesia Focused Assessment* Temperature: 97.4 F Pulse Rate: 79 Blood Pressure: 154/92 Respiratory Rate: 16 Pulse Ox: 98 Oxygen Delivery Method: Room Air Airway Assessment Mouth opens: >3 cm Mallampati Score: I Teeth Condition: Missing (Missing several teeth. Rest are tight.) Neck Range of motion (ROM): Limited ROM (Somewhat decreased extension) Focused Labs Anesthesia Preop lab: CBC WBC 7.0 K/mm3 (4.4-11.0) 07/03/24 02:46 07/03/24 RBC 2.92 M/mm3 (4.2-5.4) L 07/03/24 02:46 07/03/24 Hgb 8.3 g/dL (12.0-15.0) L 07/03/24 06:34 07/03/24 Hct 25.6 % (37-47) L 07/03/24 06:34 07/03/24 Plt Count 196 K/mm3 (150-450) 07/03/24 02:46 07/03/24 CHEMISTRY Potassium 4.5 mmol/L (3.3-5.1) 07/03/24 02:46 07/03/24 Sodium 138 mmol/L (133-145) 07/03/24 02:46 07/03/24 Magnesium 2.1 mg/dL (1.5-2.2) 07/02/24 18:23 07/02/24 BUN 42 mg/dL (4-19) H 07/03/24 02:46 07/03/24 Creatinine 3.19 mg/dL (0.70-1.20) H 07/03/24 02:46 07/03/24 Glucose 119 mg/dL (70-99) H 07/03/24 02:46 07/03/24 POC Glucose 88 mg/dL (74-106) 07/03/24 16:21 07/03/24 TSH 4.040 uIU/mL (0.300-4.200) 06/14/24 05:00 06/14/24 COAG PT 21.4 SECONDS (11.7-14.9) H 07/03/24 02:46 07/03/24 Pre-Assessment Diagnosis/Proposed Procedure Planned Operative Procedure(s): EGD Anesthesia History Anesthesia History - patient accounts specialist: Anesthesia History - patient accounts specialist Hx Hospitalization Any Problems With Anesthesia No 07/02/24 20:30 Cholinesterase deficiency No 07/02/24 20:30 You/Your Family Experience No 07/02/24 20:30 fever (hyperthermia) with Relationship Recent Exposure to Contagious No 07/02/24 20:30 Disease Does patient have nerve No 07/02/24 20:30 stimulator Patient instructed to have No 07/02/24 20:30 device shut off --Does patient have Pacemaker No 07/03/24 16:25 or ICD? When Was Last Pacemaker Check QUESTION #4 FULL TEXT: You/Your Family Experience fever (hyperthermia) with Anesthesia Last Oral Intake Last Oral intake: Last Oral Intake NPO since 00:00 07/03/24 16:25 Meds taken in AM with sips of water? Meds patient instructed to take am of surgery Any additional information?: Yes Meds taken in AM with sips of water?: Yes PONV PONV - patient accounts specialist: PONV - patient accounts specialist Female HX of Motion Sickness HX of N/V After Surgery Non-Smoker Duration of Surgery greater than 60 minutes Number of Risk Factors PONV Score Height & Weight Height & Weight: Anesthesia: Height & Weight Height 5 ft 2 in 07/03/24 16:25 Weight: 76.1 kg 07/03/24 16:25 Body Mass Index (BMI) 30.7 07/03/24 16:25 Respiratory Assessment Respiratory Assessment - patient accounts specialist: Respiratory Tract Infection Hx - patient accounts specialist Hx Respiratory Tract Infection No 07/02/24 20:30 STOP Sleep Apnea STOP Sleep Apnea - patient accounts specialist: STOP Sleep Apnea - patient accounts specialist Hx Hypertension Yes 07/03/24 11:14 Hx Sleep Apnea No 07/02/24 20:27 CPAP BIPAP Do you snore loudly (louder No 07/02/24 20:27 than talking or can be heard Do you often feel tired/ No 07/02/24 20:27 fatigued/ sleepy during daytime? Has anyone observed you stop No 07/02/24 20:27 breathing during sleep? STOP Results Negative 07/02/24 20:27 QUESTION #5 FULL TEXT : Do you snore loudly (louder than talking or can be heard through closed doors)? 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 Specify any problems Hx of Preganancy in last 3 No 07/02/24 20:27 Months Nurse Filling Out Transfusion DREDICK 07/02/24 20:27 & Questions: Date: 07/02/24 07/02/24 20:27 Time: 20:27 07/02/24 20:27 Patient unable to answer at this time (ie. confused, unrespo /Reproduction History /Reproductive History - patient accounts specialist: /Reproductive Hx- patient accounts specialist Hx Now No 07/02/24 20:30 Gestational Age (in weeks): EDC: Hx Hx Para Hx Section SAB No 07/02/24 20:30 Active Medications Active Medications: Current Medications Generic Name Dose Route Start Last Admin Trade Name Freq PRN Reason Stop Dose Admin Acetaminophen 650 mg 07/02/24 20:15 Acetaminophen 325 Mg Tablet PO Q4H PRN PRN Fever, pain 1-10/ Al Hydroxide/Mg Hydroxide 30 ml 07/02/24 20:15 Mag Hydrox/Al Hydrox/Simeth 30 Ml Udc PO Q6H PRN PRN Gastric Burning Albuterol Sulfate 2.5 mg 07/02/24 20:15 Albuterol 2.5 Mg/3 Ml Vial.Neb. INHALATION Q2H PRN PRN Dyspnea, wheezing Allopurinol 300 mg 07/03/24 10:00 07/03/24 10:15 Allopurinol 300 Mg Tablet PO Not Given DAILY [facility] Amlodipine Besylate 5 mg 07/03/24 10:00 07/03/24 09:19 Amlodipine 5 Mg Tablet PO 5 mg DAILY [facility] Administration Protocol Atorvastatin Calcium 80 mg 07/02/24 22:00 07/02/24 20:56 Atorvastatin Calcium 80 Mg Tablet PO 80 mg QHS [facility] Administration Ferrous Sulfate 325 mg 07/03/24 12:00 07/03/24 11:57 Ferrous Sulfate 325 Mg Tablet PO Not Given DAILY@1200 [facility] Furosemide 40 mg 07/03/24 18:00 Furosemide 40 Mg/4 Ml Vial IV BIDLX [facility] Protocol Glucagon 1 mg 07/02/24 20:15 Glucagon 1 Mg/Ml Syringe IM X1 PRN HYPOGLYCEMIA Protocol Guaifenesin 20 ml 07/02/24 20:15 Guaifenesin 10 Ml Udc (200mg/10ml) PO Q4H PRN PRN COUGH Hydralazine HCl 10 mg 07/02/24 20:15 Hydralazine 20 Mg/Ml Vial IV Q4H PRN PRN SBP > 160 Protocol Pantoprazole Sodium 80 mg/ 100 mls @ 10 mls/hr 07/02/24 21:00 07/03/24 18:12 Sodium Chloride CONT INF Infused Q10H JASON Infusion Dextrose 250 mls @ 0 mls/hr 07/02/24 20:15 Dextrose 10%-Water IV .Q0M PRN HYPOGLYCEMIA Protocol As Directed Sodium Chloride 100 mls @ 15 mls/hr 07/02/24 20:15 IV .Q6H40M PRN Saline Flush Sodium Chloride 100 mls @ 15 mls/hr 07/02/24 20:15 IV .Q6H40M PRN Additional IVPB Infusion Insulin Human Lispro 0 unit 07/02/24 20:15 07/03/24 17:32 Insulin Lispro 100 Unit/Ml Insuln.Pen SC Not Given Q6 [facility] Protocol Melatonin 3 mg 07/02/24 20:15 Melatonin 3 Mg Tablet PO QHS PRN PRN INSOMNIA Ondansetron HCl 4 mg 07/02/24 20:15 Ondansetron 4 Mg/2 Ml Vial IV Q8H PRN PRN NAUSEA/VOMITING Prochlorperazine Edisylate 5 mg 07/02/24 20:15 Prochlorperazine 10 Mg/2 Ml Vial IV Q4H PRN PRN Breakthrough nausea/vomiting Sodium Chloride 10 - 40 ml 07/02/24 20:15 07/03/24 01:32 0.9% Saline Lock 10 Ml Syringe IV 10 ml UD PRN Administration SALINE FLUSH PFSH Medical History Current use of anticoagulant therapy Severe anemia Aortic stenosis (HFpEF) heart failure with preserved ejection fraction Atrial fibrillation Abnormal EKG Arrhythmia Bilateral knee pain Stool incontinence Elevated brain natriuretic peptide (BNP) level Shortness of breath Anemia Bilateral lower extremity edema Post-viral cough syndrome Hypercalcemia Health care maintenance Vertigo Post-menopausal Gout Obesity Essential (primary) hypertension Type 2 diabetes mellitus History of non-ST elevation myocardial infarction (NSTEMI) (06/08/20) Atherosclerotic heart disease of [place] coronary artery without angina pectoris Dizziness Lightheadedness Headache Home Medications ?Medication ?Instructions ?Recorded ?Last Taken ?Type allopurinol 300 mg tablet 300 mg PO DAILY GOUT 06/08/20 06/11/24 History fluoxetine 10 mg capsule See Rx Instructions .Route 11/06/23 06/11/24 Rx .COMPLEX #90 caps atorvastatin 80 mg tablet 80 mg PO QHS cholesterol #90 tabs 11/12/23 06/11/24 Rx amlodipine 5 mg tablet 5 mg PO DAILY #90 tabs 05/12/24 06/11/24 Rx dulaglutide 0.75 mg/0.5 mL 0.75 mg subcut SA 06/13/24 06/07/24 History subcutaneous pen injector ferrous sulfate 325 mg (65 mg 325 mg PO DAILY #30 tabs 06/15/24 Unknown Rx iron) tablet apixaban 5 mg tablet (Eliquis) 2.5 mg PO BID A-fib 07/02/24 Unknown History cholecalciferol (vitamin D3) 125 125 mcg PO DAILY 07/02/24 Unknown History mcg (5,000 unit) capsule furosemide 20 mg tablet 20 mg PO QAM #30 tabs 07/02/24 Unknown Rx Allergy/AdvReac Type Severity Reaction Status Date / Time No Known Allergies Allergy Verified 07/02/24 18:13 Family History Father Myocardial infarction, Onset Age: 52 Diabetes Hypertension CAD (coronary artery disease) Heart disease Mother Aneurysm Uterine cancer Surgical History History of hernia repair History of cholecystectomy History of left heart catheterization (06/09/20) Social History housing: house Smoking Status: Never smoker alcohol intake: never substance use type: does not use what type of physical activity do you participate in: bicycling frequency: 1-2 times per week Review of Systems (Anesthesia) ROS Narrative System reviewed and no additional complaints, except as documented.
--- NOTE | 2024-07-03 18:54 | CON.PCM.GI_ITS ---
HPI Consult Data Date of Consult: 07/03/24 HPI Narrative Reason for Consultation: GI bleed HPI Narrative: MARGOT GARVIN, is a 79 y/o F w/ PMHx: HFpEF, HTN, HLD, CAD status post STEMI 06/08/2020, Chronic anemia/Fe deficiency anemia, Valvular Heart Disease, Diabetes mellitus type II, Gout, Anxiety and Depression who presents to the [facility] ED on with history of recent increased dark stools with issues recently with the patient reported bleeding hemorrhoids with PCP evaluation on day of presentation as well as cardiology with outpatient CBC and BMP with hemoglobin noted to be 6.4 and renal function with worsening creatinine noted to be 3.6 prompting referral to the ED for evaluation. In the ED upon evaluation no visualized external hemorrhoids and no noted internal hemorrhoids and no lali bleeding. Noted mild amount of stool in the rectal vault that was dark in color. Patient recently seen earlier in the day by cardiology and from their note unfortunately she was supposed to have stopped aspirin and only continued low-dose Eliquis twice daily at the end of May when she had noted worsening anemia but she continued to take the aspirin in addition. [facility] Medical History Current use of anticoagulant therapy Severe anemia Aortic stenosis (HFpEF) heart failure with preserved ejection fraction Atrial fibrillation Abnormal EKG Arrhythmia Bilateral knee pain Stool incontinence Elevated brain natriuretic peptide (BNP) level Shortness of breath Anemia Bilateral lower extremity edema Post-viral cough syndrome Hypercalcemia Health care maintenance Vertigo Post-menopausal Gout Obesity Essential (primary) hypertension Type 2 diabetes mellitus History of non-ST elevation myocardial infarction (NSTEMI) (06/08/20) Atherosclerotic heart disease of [place] coronary artery without angina pectoris Dizziness Lightheadedness Headache Home Medications ?Medication ?Instructions ?Recorded ?Last Taken ?Type allopurinol 300 mg tablet 300 mg PO DAILY GOUT 1 06/11/24 History fluoxetine 10 mg capsule See Rx Instructions .Route 0 11/06/23 06/11/24 Rx .COMPLEX #90 caps atorvastatin 80 mg tablet 80 mg PO QHS cholesterol #90 tabs 11/12/23 06/11/24 Rx amlodipine 5 mg tablet 5 mg PO DAILY #90 tabs 05/1206/11/24 Rx dulaglutide 0.75 mg/0.5 mL 0.75 mg subcut SA 06/13/24 06/07/24 History subcutaneous pen injector ferrous sulfate 325 mg (65 mg 325 mg PO DAILY #30 tabs 06/15/24 Unknown Rx iron) tablet apixaban 5 mg tablet (Eliquis) 2.5 mg PO BID A-fib Unknown History cholecalciferol (vitamin D3) 125 125 mcg PO DAILY 06/17 09/10 Unknown History mcg (5,000 unit) capsule furosemide 20 mg tablet 20 mg PO QAM #30 tabs Unknown Rx Allergy/AdvReac Type Severity Reaction Status Date / Time No Known Allergies Allergy Verified 07/02/24 18:13 Family History Father Myocardial infarction, Onset Age: 52 Diabetes Hypertension CAD (coronary artery disease) Heart disease Mother Aneurysm Uterine cancer Surgical History History of hernia repair History of cholecystectomy History of left heart catheterization (06/09/20) Social History housing: house Smoking Status: Never smoker alcohol intake: never substance use type: does not use what type of physical activity do you participate in: bicycling frequency: 1-2 times per week ROS Constitutional Constitutional: Denies fatigue, fever(s), poor appetite, weight gain or weight loss Gastrointestinal Gastrointestinal: Denies belching, bloating, change in bowel habits, change in stool character, chewing difficulty, coffee ground emesis, constipation, cramping, diarrhea, dyspepsia, dysphagia, early satiety, excessive flatus, fecal incontinence, heartburn, hematemesis, hematochezia, hemorrhoids, loose stools, melena, nausea, odynophagia, rectal bleeding, tenesmus, vomiting or weight changes Physical Exam Const alert, oriented x3, no apparent distress and healthy appearing General Appearance: cooperative GI normal to inspection, nondistended, normoactive bowel sounds, soft to palpation, non-tender and non-distended Percussion: normal to percussion Rectal Exam: deferred Lab / Micro Data 07/03/24 06:34 07/03/24 02:46 Labs: Laboratory Results - last 24 hr 07/02/24 18:23: Magnesium 2.1, NT pro BNP II 9182 H, Crossmatch See Detail 07/02/24 18:32: Blood Type A POSITIVE, Antibody Screen NEGATIVE 07/02/24 21:14: POC Glucose 140 H 07/02/24 21:25: Urine Color Yellow, Urine Clarity Cloudy, Urine pH 5.0, Ur Specific [place] 1.020, Urine Protein 500 H, Urine Glucose (UA) Normal, Urine Ketones Negative, Urine Occult Blood 10 H, Urine Nitrite Negative, Urine Bilirubin Negative, Urine Urobilinogen Normal, Ur Leukocyte Esterase 100 H, Urine RBC 5-10 SEEN, Urine WBC 50-100 SEEN, Ur Squamous Epith Cells 0-5 SEEN, Urine Bacteria 4+, Hyaline Casts 0-5 SEEN, Urine Mucus 0 SEEN, Ur Random Sodium 59, Urine Creatinine 114.00 07/03/24 01:37: POC Glucose 120 H 07/03/24 02:46: WBC 7.0, RBC 2.92 L, Hgb 8.9 L, Hct 27.4 L, MCV 93.8 D, MCH 30.5, MCHC 32.5 D, RDW Std Deviation 61.6 H, RDW Coeff of [place] 18.4 H, Plt Count 196, MPV 10.1, Immature Gran % (Auto) 0.100, Neut % (Auto) 75.0 H, Lymph % (Auto) 16.4 L, [place] % (Auto) 5.8, Eos % (Auto) 2.0, Baso % (Auto) 0.7, Absolute Neuts (auto) 5.2, Absolute Lymphs (auto) 1.14, Nucleated RBC % 0.4, PT 21.4 H, INR 1.8, APTT 42.7 H, Sodium 138, Potassium 4.5, Chloride 106, Carbon Dioxide 19.7 L, Anion Gap 13, BUN 42 H, Creatinine 3.19 H, Estim Creat Clear Calc 14.11 L, Est GFR (MDRD) Non-Af 14 L, BUN/Creatinine Ratio 13.2, Glucose 119 H, Calcium 10.2, Total Bilirubin 0.89, AST 29, ALT 19, Alkaline Phosphatase 102, Total Protein 6.5, Albumin 3.7, Globulin 2.8, Albumin/Globulin Ratio 1.3 07/03/24 06:34: Hgb 8.3 L, Hct 25.6 L 07/03/24 06:44: POC Glucose 93 07/03/24 11:44: POC Glucose 97 07/03/24 15:52: U Random Total Protein 154.0 H, Urine Creatinine 25.40 L, P rotein/Creatinin Ratio 6063 H 07/03/24 16:21: POC Glucose 88 Micro: Microbiology 07/02/24 18:32 Stool Stool Occult Blood (PUNEET) - Final Occult Blood Positive Imaging Radiology Impression Chest X-Ray 07/02/24 18:30 IMPRESSION: Small left pleural effusion with left lower lobe atelectasis. Reading Location: [id number] Assessment & Plan Assessment/Plan (1) Acute anemia: (2) GERBER (acute kidney injury): (3) Acute upper GI bleeding: PLAN: Plan The patient is a 79 y/o F w/ CAD status post STEMI 06/08/2020, Chronic anemia/Fe deficiency anemia, Valvular Heart Disease, Diabetes mellitus type II, Gout, Anxiety and Depression who presents to the [facility] ED on with history of recent increased dark stools Acute GI Bleed w/ resultant Acute on chronic anemia/iron deficiency anemia: Admission hemoglobin 6.3, guaiac positive, baseline hemoglobin more recently 7 range however patient has slowly tended down since the end of 2023, will hold Eliquis therapy, hold aspirin therapy concurrently, obtain serial H+H q 4 hours, continue with ED plan of 2 unit PRBC administration, will maintain on IV PPI, will allow clear liquids with n.p.o. status after midnight. Patient will undergo upper endoscopy to evaluate upper GI tract. She was explained alternatives, risk and benefits Deena was any bleeding, fracture, subsequent perforation, need for urgent . She have an ASA of 3., Charges/Coding Visit Charges Inpatient E&M: 77433 Init Hosp L3
--- NOTE | 2024-07-03 19:08 | OP.CCLET_ITS ---
07/03/2024 Carole Sheehan MD [address] [place] [address] [place] [address] Re : Upper GI endoscopy procedure for Katie Wilmar Dear Dr. Sheehan This procedure was performed on June. My impressions and recommendations are as follows: Impressions : - No gross lesions in the entire esophagus. - Small hiatal hernia. - No gross lesions in the entire examined duodenum. - No specimens collected. Recommendations : - Return patient to [facility] for [facility] care. - Clear liquid diet. - Continue present medications. My findings are described in the full procedure note, which is enclosed. If I can be of further assistance, please feel free to contact me at . Sincerely, Emmanuel Yin, 07/03/2024 7:07:51 PM This report has been signed electronically.
--- NOTE | 2024-07-03 19:08 | OP.EGD_ITS ---
Patient Name: Katie Urban Procedure Date: 07/03/2024 6:35 PM Date of : 1945 Age: 79 Procedure: Upper GI endoscopy Indications: Melena Providers: Emmanuel Yin DO Medicines: Monitored Anesthesia Care Patient Profile: This is a 79 year old female. Refer to note in patient chart for documentation of history and physical. Patient has symptoms. Complications: No immediate complications. Procedure: Pre-Anesthesia Assessment: - Prior to the procedure, a History and Physical was performed, and patient medications and allergies were reviewed. The patient is competent. The risks and benefits of the procedure and the sedation options and risks were discussed with the patient. All questions were answered and informed consent was obtained. Patient identification and proposed procedure were verified by the physician in the pre-procedure area. Mental Status Examination: alert and oriented. Airway Examination: normal oropharyngeal airway and neck mobility. Respiratory Examination: clear to auscultation. CV Examination: normal. Prophylactic Antibiotics: The patient does not require prophylactic antibiotics. Prior Anticoagulants: The patient has taken no anticoagulant or antiplatelet agents. ASA Grade Assessment: II - A patient with mild systemic disease. After reviewing the risks and benefits, the patient was deemed in satisfactory condition to undergo the procedure. The anesthesia plan was to use monitored anesthesia care (MAC). Immediately prior to administration of medications, the patient was re-assessed for adequacy to receive sedatives. The heart rate, respiratory rate, oxygen saturations, blood pressure, adequacy of pulmonary ventilation, and response to care were monitored throughout the procedure. The physical status of the patient was re-assessed after the procedure. After obtaining informed consent, the endoscope was passed under direct vision. Throughout the procedure, the patient's blood pressure, pulse, and oxygen saturations were monitored continuously. The Endoscope was introduced through the mouth, and advanced to the fourth part of the duodenum. Small bowel enteroscopy was deemed necessary. The upper GI endoscopy was accomplished without difficulty. The patient tolerated the procedure well. Scope In: 6:59:38 PM Scope Out: 7:01:36 PM Total Procedure Duration Time 0 hours 1 minute 58 seconds Findings: No gross lesions were noted in the entire esophagus. A small hiatal hernia was present. No other significant abnormalities were identified in a careful examination of the stomach. No gross lesions were noted in the entire examined duodenum. Impression: - No gross lesions in the entire esophagus. - Small hiatal hernia. - No gross lesions in the entire examined duodenum. - No specimens collected. Recommendation: - Return patient to [facility] for ongoing care. - Clear liquid diet. - Continue present medications. Procedure Code(s): --- Professional --- 74254, Small intestinal endoscopy, enteroscopy beyond second portion of duodenum, not including ileum; diagnostic, including collection of specimen(s) by brushing or washing, when performed (separate procedure) CPT copyright 2021 [employer]. All rights reserved. The codes documented in this report are preliminary and upon strip deburrer review may be revised to meet current compliance requirements. Emmanuel Yin DO 07/03/2024 7:07:51 PM This report has been signed electronically. Number of Addenda: 0 Note Initiated On: 07/03/2024 6:35 PM
--- NOTE | 2024-07-03 19:09 | PCM.POST.ANE ---
Anesthesia: Postop Eval I Current Vital Signs Temperature: 97.6 F Pulse Rate: 70 Blood Pressure: 110/69 Respiratory Rate: 16 Pulse Ox: 92 Oxygen Delivery Method: Room Air Assessment Airway patent: Yes Spontaneous unlabored respirations: Yes Mental status: Awake and Calm nausea: No Vomiting: No Anesthesia Complication: No Fluid Hydration Crystalloid volume administer (ml): 5 Total IV fluid infused: 5 Progress Note Anesthesia document: Postop Eval 1 completed: Yes
--- NOTE | 2024-07-03 19:20 | PCM.POSTANE2 ---
Anesthesia Postop Eval I Sum Postop Eval Completion status Anesthesia document: Postop Eval 1 completed: Yes Anesthesia Postop Eval I Summary Anesthesia Postop Eval I Summary: Anesthesia Postop Eval I: Assessment Summary Airway patent Yes 07/03/24 19:12 Spontaneous unlabored Yes 07/03/24 19:12 respirations Mental status Awake,Calm 07/03/24 19:12 nausea No 07/03/24 19:12 Vomiting No 07/03/24 19:12 Anesthesia Postop Eval I: Fluid Summary Crystalloid volume administer 5 07/03/24 19:12 (ml) Colloids volume administered ( ml) Blood Product volume administered (ml) Total IV fluid infused 5 07/03/24 19:12 Anesthesia Postop Eval I: Summary Notes Anesthesia Complication No 07/03/24 19:12 Anesthesia Complication Comment: Post-operative progress note Anesthesia: Postop Eval II Evaluation Mental status: Awake and Calm Pain Level: 0 nausea: No Vomiting: No Complications Anesthesia Complication: No
[2024-07-03] MEDS: Bisacodyl 5 MG Tablet 20 MG PO (20:03)
[2024-07-03] MEDS: Atorvastatin Calcium 80 MG Tablet PO (20:11)
[2024-07-03] MEDS: Polyethylene Glycol 3350 BOWEL PREP PO (21:39)
[2024-07-03] MEDS: Ondansetron 4 MG/2 ML Vial IV (21:43)
[2024-07-04] VITALS (12 sets, daily range): BP systolic 104–154; BP diastolic 67–92; PULSE 64–85; RESP 15–18; TEMP 36.4–36.9; O2SAT 92–97; BMI 30.8; BMI 31.4
[2024-07-04 06:11] LABS: Absolute Lymphocyte Count 0.94 X10^3/uL (0.83-4.51); Absolute Neutrophil Count 4.7 X10^3/uL (2.0-7.7); Basophil# 0.04 X10^3/uL; Basophil% 0.6 % (0-1); Eosinophil# 0.23 X10^3/uL; Eosinophils% 3.6 % (0-5); Hematocrit 24.5 % (37-47); Hemoglobin 7.9 g/dL (12.0-15.0); Lymphocyte # 0.94 X10^3/ul (0.83-4.51); Lymphocyte % 14.9 % (19-41); Mean Corp Hgb Conc 32.2 g/dL (32-36); Mean Corpuscular Hgb 30.6 pg (27.0-32.0); Mean Platelet Vol. 10.4 fl (6.2-12.0); Monocyte# 0.44 X10^3/uL; NRBC Flagged by Analyzer 0 % (0-5); Neutrophil # 4.65 X10^3/uL (2.7-7.7); Neutrophil % 73.7 % (47-70); POSITIVE MORPHOLOGY YES; Platelet Count 166 K/mm3 (150-450); RBC Distribution Width CV 19.4 % (11.6-14.6); Red Blood Count 2.58 M/mm3 (4.2-5.4); White Blood Count 6.3 K/mm3 (4.4-11.0)
[2024-07-04 06:24] LABS: Differential Indicated SCAN CRITERIA MET
[2024-07-04 06:40] LABS: Bedside Glucose 77 mg/dL (74-106)
[2024-07-04 07:09] LABS: Anion Gap 13 (5-15); BUN 36 mg/dL (4-19); BUN/Creat Ratio 11.9 RATIO (10-20); Chloride 106 mmol/L (98-108); Creatinine, Serum 3.06 mg/dL (0.70-1.20); EST Glomerular Filtration Rate 15 (>60); Glucose 75 mg/dL (70-99); Phosphorus 5.5 mg/dL (2.7-4.5); Potassium 3.6 mmol/L (3.3-5.1); Sodium Level 139 mmol/L (133-145)
[2024-07-04 07:17] LABS: Anisocytosis 2+; Differential Comment SCANNED
--- NOTE | 2024-07-04 07:18 | PN.HOSP_ITS ---
Reason for Visit Reason for Visit: Diagnoses Anemia, unspecified (07/02/24) Gastrointestinal hemorrhage, unspecified (07/02/24) Acute kidney failure, unspecified (07/02/24) Objective Data Objective Data Vital Signs: Vital Signs Temp Pulse Resp BP Pulse Ox O2 Del Method 97.7 F L 71 15 133/67 H 92 Room Air 07/04/24 03:22 07/04/24 03:22 07/04/24 03:22 07/04/24 03:22 07/04/24 03:22 07/04/24 03:22 Oxygen Delivery Method Room Air Weight: 167 lb 8.821 oz Body Mass Index (BMI) 30.8 Intake & Output: Intake and Output for Last 24 Hours 07/02/24 07/03/24 07/04/24 23:59 23:59 23:59 Intake Total 1035 / 1035 756.08 / 756.08 Output Total 300 / 300 Balance 1035 / 1035 456.08 / 456.08 Lab / Micro Data 07/04/24 05:09 07/04/24 05:09 Labs: Laboratory Results - last 24 hr 07/03/24 11:44: POC Glucose 97 07/03/24 15:52: U Random Total Protein 154.0 H, Urine Creatinine 25.40 L, P rotein/Creatinin Ratio 6063 H 07/03/24 16:21: POC Glucose 88 07/04/24 05:09: WBC 6.3, RBC 2.58 L, Hgb 7.9 L, Hct 24.5 L, MCV 95.0, MCH 30.6, MCHC 32.2, RDW Std Deviation 66.0 H, RDW Coeff of [place] 19.4 H, Plt Count 166, MPV 10.4, Immature Gran % (Auto) 0.200, Neut % (Auto) 73.7 H, Lymph % (Auto) 14.9 L, [place] % (Auto) 7.0, Eos % (Auto) 3.6, Baso % (Auto) 0.6, Absolute Neuts (auto) 4.7, Absolute Lymphs (auto) 0.94, Nucleated RBC % 0, Differential Comment SCANNED, Anisocytosis 2+, Sodium 139, Potassium 3.6, Chloride 106, Carbon Dioxide 20.0 L, Anion Gap 13, BUN 36 H, Creatinine 3.06 H, Estim Creat Clear Calc 14.70 L, Est GFR (MDRD) Non-Af 15 L, BUN/Creatinine Ratio 11.9, Glucose 75, Calcium 10.0, Phosphorus 5.5 H, Magnesium 2.0 07/04/24 06:12: POC Glucose 77 Micro: Microbiology 07/02/24 18:32 Stool Stool Occult Blood (PUNEET) - Final Occult Blood Positive Physical Exam Narrative Seen and examined. She states her shortness of breath is better and she is around baseline. Patient going for colonoscopy. Glucose 78 mg/dL persistent Physical exam General: Alert, Oriented x3, Cooperative HEENT: Atraumatic, PERRLA, EOMI, Normocephalic Oral: No Gingival or Mucosal Lesions/ Ulcerations Neck: Supple, No JVD, Negative Carotid Bruits Chest wall/Lungs: Air entry diminished in bilateral lung bases. No crepitation/rhonchi Cardiovascular: Regular rate, Regular Rhythm, Normal S1, Normal S2, systolic murmur. Abdomen: Bowel Sounds Present, Soft, Non Tender, Non-Distended : No dysuria. No renal angle tenderness. No suprapubic tenderness. Extremities: Bilateral pitting edema, Capillary Refill Less than 3 Seconds Skin: Left arm/elbow bruise and some known right arm. Musculoskeletal: No Tenderness to Palpation of Joints or Extremities Neurological: Cranial nerves II-XII grossly intact, DTR 2+/4. No acute focal neurological deficit. Psych/Mental Status: Flat affect. Assessment & Plan Assessment/Plan (1) Acute anemia: (2) GERBER (acute kidney injury): (3) Acute upper GI bleeding: PLAN: Plan Patient is a 79-year-old lady with history of paroxysmal atrial fibrillation on systemic anticoagulation with apixaban who presented to the emergency department with melena. Patient hemoglobin on admission was 6.3. She was also noted to have worsening kidney function with creatinine up to 3.36 from a baseline of 2.5. 1. Acute blood loss on chronic anemia: ? Secondary to acute on chronic blood loss anemia exacerbated by the use of systemic anticoagulant?apixaban. Patient hemoglobin on admission was 6.3. Patient apixaban and aspirin held. Admitted to regular nursing floor patient was transfused with 2 unit PRBC from the ED started on PPI and consultation placed to GI 07/04: H&H improved to 7.9/24.5%. Platelet count 166K. Patient went for colonoscopy Impression: - Preparation of the colon was fair. - Diverticulosis in the recto-sigmoid colon, in the sigmoid colon and in the descending colon. - Multiple 1 to 2 mm polyps in the ascending colon and in the cecum, removed with a hot snare. Resected and retrieved. Clip was placed. Clip business job titles: [employer]. - Three bleeding colonic angiodysplastic lesions. Treated with a monopolar probe. - One non-bleeding colonic angiodysplastic lesion. Treated with a monopolar probe. - One 5 mm polyp at the splenic flexure, removed with a jumbo cold forceps. Resected and retrieved. - Stool in the rectum, in the recto-sigmoid colon, in the sigmoid colon and in the cecum. Recommendation: - Await pathology results. - Repeat colonoscopy in 1 year for surveillance. 2. Acute kidney injury Superimposed on chronic kidney disease stage IIIB. Has been a gradual worsening of patient kidney function. Patient is on furosemide held on admission. Renal ultrasound ordered and consultation placed to nephrology 07/04: BUN/creatinine 36/3.06 3. Acute on chronic congestive heart failure ? With preserved ejection fraction patient has a known EF of 55 to 60%. Patient furosemide held in view of above reasons. Patient however is currently in acute congestive heart failure following the blood transfusion as well as her diuretics subsequently held. Patient diuretics restarted. Strict input and output, daily weight, as well as fluid restriction. 4. Paroxysmal A-fib ? Rate controlled. Patient previously did not tolerate metoprolol as a result of bradycardia. Patient is on apixaban held in view of her acute GI bleed 5. Coronary artery disease ? Patient has known history of ASCVD not amenable to PCI cardiology recommended optimization of medical therapy. Cardiology also recommended that discontinuation of aspirin 6. Class I obesity with BMI of 31 ? Weight loss advised 7. Dyslipidemia ?Patient is on statin therapy, continued at home dose 8. Diabetes mellitus type 2 ? Placed on Accu-Cheks before meals and at bedtime with sliding scale coverage 07/04: Glucose in Accu-Cheks low normal at about 77. Patient being NPO. Started on D10 while n.p.o. to prevent hypoglycemia. 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 9. Hypertension ? Blood pressure controlled, home medications continued with dose adjustment as needed 10. Gout ? Patient is on allopurinol did continue 11. Depression with anxiety ? Patient is on fluoxetine did continue 12. Physical deconditioning ? Requested for PT OT eval and criminal justice social worker to assist with discharge planning 13. DVT prophylaxis ? On apixaban held as a result of GI bleed Charges/Coding Visit Charges Inpatient E&M: 43671 Subs Hosp L2
[2024-07-04] MEDS: Pantoprazole Sodium 80 MG in 0.9% Normal Saline (100mL Bag) 80 ML 10 MG CONT INF (08:16)
[2024-07-04 08:43] LABS: Bedside Glucose 75 mg/dL (74-106)
--- NOTE | 2024-07-04 09:29 | PN.RENAL_ITS ---
Subjective Subjective Following for GERBER on CKD. The patient denies chest pain, dyspnea, or nausea. Appetite remains poor. Objective Data Objective Data Vital Signs: Vital Signs Temp Pulse Resp BP Pulse Ox O2 Del Method O2 Flow Rate 98.4 F 83 18 129/78 H 97 Nasal Cannula 2 07/04/24 08:31 07/04/24 08:31 07/04/24 08:31 07/04/24 08:31 07/04/24 08:31 07/04/24 08:31 07/04/24 08:31 Oxygen Flow Rate (L/min) 2 Oxygen Delivery Method Nasal Cannula Weight: 78.018 kg Body Mass Index (BMI) 31.4 Intake & Output: Intake and Output for Last 24 Hours 07/02/24 07/03/24 07/04/24 23:59 23:59 23:59 Intake Total 1035 / 1035 756.08 / 756.08 100 / 100 Output Total 300 / 300 Balance 1035 / 1035 456.08 / 456.08 100 / 100 Lab / Micro Data 07/04/24 05:09 07/04/24 05:09 Labs: Laboratory Results - last 24 hr 07/03/24 11:44: POC Glucose 97 07/03/24 15:52: U Random Total Protein 154.0 H, Urine Creatinine 25.40 L, P rotein/Creatinin Ratio 6063 H 07/03/24 16:21: POC Glucose 88 07/04/24 05:09: WBC 6.3, RBC 2.58 L, Hgb 7.9 L, Hct 24.5 L, MCV 95.0, MCH 30.6, MCHC 32.2, RDW Std Deviation 66.0 H, RDW Coeff of [place] 19.4 H, Plt Count 166, MPV 10.4, Immature Gran % (Auto) 0.200, Neut % (Auto) 73.7 H, Lymph % (Auto) 14.9 L, [place] % (Auto) 7.0, Eos % (Auto) 3.6, Baso % (Auto) 0.6, Absolute Neuts (auto) 4.7, Absolute Lymphs (auto) 0.94, Nucleated RBC % 0, Differential Comment SCANNED, Anisocytosis 2+, Sodium 139, Potassium 3.6, Chloride 106, Carbon Dioxide 20.0 L, Anion Gap 13, BUN 36 H, Creatinine 3.06 H, Estim Creat Clear Calc 14.70 L, Est GFR (MDRD) Non-Af 15 L, BUN/Creatinine Ratio 11.9, Glucose 75, Calcium 10.0, Phosphorus 5.5 H, Magnesium 2.0 07/04/24 06:12: POC Glucose 77 07/04/24 08:10: POC Glucose 75 Micro: Microbiology 07/02/24 18:32 Stool Stool Occult Blood (PUNEET) - Final Occult Blood Positive Radiography Diagnostic Testing: Radiology Impression Renal Ultrasound 07/03/24 05:55 IMPRESSION: NORMAL RENAL ULTRASOUND. Reading Location: [facility] Physical Exam Narrative Alert and oriented, no apparent distress. S1, S2, heart tone is irregularly irregular with 3 or 6 systolic murmur Lungs sound clear anteriorly and posteriorly. No wheezes, rhonchi or rales. On room air Abdomen soft, nontender No edema Assessment & Plan Assessment/Plan (1) GERBER (acute kidney injury): (2) CKD (chronic kidney disease) stage 3, GFR 30-59 ml/min: (3) Acute anemia: PLAN: Plan Assessment/Plan: Patient is a 79-year-old female with past medical history significant for hypertension, coronary artery disease status post STEMI May 2020, hyperlipidemia, chronic anemia, valvular heart disease, diabetes mellitus type 2, anxiety and depression, heart failure preserved EF (echo 06/13/2024: EF 55 to 60%, normal LV systolic function) who was referred to the emergency room on 07/02/2024 for abnormal lab work, elevated creatinine above baseline and anemia. Nephrology is following for GERBER. Acute kidney injury on chronic kidney disease stage G3b. Renal ultrasound last admission no hydronephrosis. CKD stage III possibly from diabetic nephropathy, patient has evidence of proteinuria. In reviewing past creatinine trends patient has had elevated creatinine dating back to at least 2020. Baseline creatinine as of January 2024 ranging around 1.4 to 1.7 mg/dL. During patient's last hospitalization from June 13 to June 16 creatinine at time of hospital discharge was 2.26 on June 16, her creatinine did peak at 2.6 during that hospitalization. In the emergency room, creatinine was 3.36 mg/dL on 07/02/2024. Serum creatinine has been slowly improving and is 3.06 mg/dL today on 07/04/2024. Potassium and bicarb acceptable. GERBER is likely due to ischemic ATN in the setting of hemodynamics, anemia. Patient does have good urine output and reports urine output has picked up after receiving IV Lasix. Patient is on 2 L nasal cannula oxygen. Volume status appears to have improved. Will continue IV Lasix at 40 mg twice daily. No acute indication for renal placement therapy. Will arrange for outpatient nephrology follow-up at the time of hospital discharge. Hyperphosphatemia. Phosphorus level is 5.5 mg/dL today on 07/04/2024. Calcium level is 10.0 mg/dL. Suspect hyperphosphatemia is due to GERBER and CKD. Will continue to monitor phosphorus level. If phosphorus level is consistently above 5.5 mg/dL, we will start sevelamer with meals.
[2024-07-04 10:37] LABS: Bedside Glucose 78 mg/dL (74-106)
[2024-07-04] MEDS: Dextrose 10%-Water 250 ML 50 ML IV (10:47)
[2024-07-04] MEDS: 0.9% Saline Lock 10 ML Syringe IV ×2 (10:47→14:38)
--- NOTE | 2024-07-04 11:30 | PCM.PRE.AN2 ---
ASA Classification* ASA Classification ASA Classification: 3 Assessment & Plan Anesthesia* Anesthesia Assessment Anesthesia Assessment: Discussed sedation and/or anesthesia options, risks, benefits, and alternatives with patient/parents/legal guardian/POA. Questions invited. The patient/parents/legal guardian/POA seems to understand and agrees to proceed with anesthesia plan. Reviewed the physical assessment, medical history, allergy history and patient home medications list prior to surgery/procedure/anesthetic and documented any changes. Performed airway and anesthesia risk assessments. Anesthesia Type Anesthesia Type: MAC Anesthesia Focused Assessment* Temperature: 98.3 F Pulse Rate: 85 Blood Pressure: 140/79 Respiratory Rate: 18 Pulse Ox: 96 Oxygen Flow Rate (L/min): 2 Airway Assessment Mouth opens: >3 cm Mallampati Score: II Focused Labs Anesthesia Preop lab: CBC WBC 6.3 K/mm3 (4.4-11.0) 07/04/24 05:09 07/04/24 RBC 2.58 M/mm3 (4.2-5.4) L 07/04/24 05:09 07/04/24 Hgb 7.9 g/dL (12.0-15.0) L 07/04/24 05:09 07/04/24 Hct 24.5 % (37-47) L 07/04/24 05:09 07/04/24 Plt Count 166 K/mm3 (150-450) 07/04/24 05:09 07/04/24 CHEMISTRY Potassium 3.6 mmol/L (3.3-5.1) 07/04/24 05:09 07/04/24 Sodium 139 mmol/L (133-145) 07/04/24 05:09 07/04/24 Magnesium 2.0 mg/dL (1.5-2.2) 07/04/24 05:09 07/04/24 Phosphorus 5.5 mg/dL (2.7-4.5) H 07/04/24 05:09 07/04/24 BUN 36 mg/dL (4-19) H 07/04/24 05:09 07/04/24 Creatinine 3.06 mg/dL (0.70-1.20) H 07/04/24 05:09 07/04/24 Glucose 75 mg/dL (70-99) 07/04/24 05:09 07/04/24 POC Glucose 78 mg/dL (74-106) 07/04/24 10:00 07/04/24 TSH 4.040 uIU/mL (0.300-4.200) 06/14/24 05:00 06/14/24 COAG PT 21.4 SECONDS (11.7-14.9) H 07/03/24 02:46 07/03/24 Pre-Assessment Diagnosis/Proposed Procedure Planned Operative Procedure(s): colonoscopy Anesthesia History Anesthesia History - detective automobile section: Anesthesia History - detective automobile section Hx Hospitalization Any Problems With Anesthesia No 07/04/24 08:31 Cholinesterase deficiency No 07/04/24 08:31 You/Your Family Experience No 07/04/24 08:31 fever (hyperthermia) with Relationship Recent Exposure to Contagious No 07/04/24 08:31 Disease Does patient have nerve No 07/04/24 08:31 stimulator Patient instructed to have No 07/04/24 08:31 device shut off --Does patient have Pacemaker No 07/04/24 08:31 or ICD? When Was Last Pacemaker Check QUESTION #4 FULL TEXT: You/Your Family Experience fever (hyperthermia) with Anesthesia Last Oral Intake Last Oral intake: Last Oral Intake NPO since 00:00 07/04/24 08:31 Meds taken in AM with sips of Yes 07/04/24 08:31 water? Meds patient instructed to take am of surgery PONV PONV - detective automobile section: PONV - detective automobile section Female HX of Motion Sickness HX of N/V After Surgery Non-Smoker Duration of Surgery greater than 60 minutes Number of Risk Factors PONV Score Height & Weight Height & Weight: Anesthesia: Height & Weight Height 5 ft 2 in 07/04/24 08:31 Weight: 78.018 kg 07/04/24 08:31 Body Mass Index (BMI) 31.4 07/04/24 08:31 Respiratory Assessment Respiratory Assessment - detective automobile section: Respiratory Tract Infection Hx - detective automobile section Hx Respiratory Tract Infection No 07/04/24 08:31 STOP Sleep Apnea STOP Sleep Apnea - detective automobile section: STOP Sleep Apnea - detective automobile section Hx Hypertension Yes 07/03/24 11:14 Hx Sleep Apnea No 07/03/24 19:24 CPAP BIPAP Do you snore loudly (louder No 07/02/24 20:27 than talking or can be heard Do you often feel tired/ No 07/02/24 20:27 fatigued/ sleepy during daytime? Has anyone observed you stop No 07/02/24 20:27 breathing during sleep? STOP Results Negative 07/03/24 19:08 QUESTION #5 FULL TEXT : Do you snore loudly (louder than talking or can be heard through closed doors)? Tobacco Use History Tobacco Use History - detective automobile section: Tobacco Use History - detective automobile section Tobacco Use Smoking Status Never smoker 07/02/24 20:27 Hx Tobacco Use No 07/02/24 20:27 Years Smoking Packs Smoked per Day Smoking Cessation Date was within the last 15 years Hx Smoking Cessation Date Hx Smoking Cessation Counseling Hematologic Medial History Hematologic Hx - detective automobile section: Hematologic Medical Hx - plateman Hx of Blood Transfusion No 07/02/24 20:27 Hx of Transfusion in last 3 No 07/02/24 20:27 Months Date of Last Transfusion (if within last 3 months) Ever experience any problems No 07/02/24 20:27 with transfusion(s)? Specify any problems Hx of Preganancy in last 3 No 07/02/24 20:27 Months Nurse Filling Out Transfusion DREDICK 07/02/24 20:27 & Questions: Date: 07/02/24 07/02/24 20:27 Time: 20:27 07/02/24 20:27 Patient unable to answer at this time (ie. confused, unrespo /Reproduction History /Reproductive History - detective automobile section: /Reproductive Hx- detective automobile section Hx Now No 07/04/24 08:31 Gestational Age (in weeks): EDC: Hx Hx Para Hx Section SAB No 07/04/24 08:31 Active Medications Active Medications: Current Medications Generic Name Dose Route Start Last Admin Trade Name Freq PRN Reason Stop Dose Admin Acetaminophen 650 mg 07/02/24 20:15 Acetaminophen 325 Mg Tablet PO Q4H PRN PRN Fever, pain 1-10/10 Al Hydroxide/Mg Hydroxide 30 ml 07/02/24 20:15 Mag Hydrox/Al Hydrox/Simeth 30 Ml Udc PO Q6H PRN PRN Gastric Burning Albuterol Sulfate 2.5 mg 07/02/24 20:15 Albuterol 2.5 Mg/3 Ml Vial.Neb. INHALATION Q2H PRN PRN Dyspnea, wheezing Allopurinol 300 mg 07/03/24 10:00 07/03/24 10:15 Allopurinol 300 Mg Tablet PO Not Given DAILY JASON Amlodipine Besylate 5 mg 07/03/24 10:00 07/03/24 09:19 Amlodipine 5 Mg Tablet PO 5 mg DAILY JASON Administration Protocol Atorvastatin Calcium 80 mg 07/02/24 22:00 07/03/24 20:11 Atorvastatin Calcium 80 Mg Tablet PO 80 mg QHS JASON Administration Ferrous Sulfate 325 mg 07/03/24 12:00 07/03/24 11:57 Ferrous Sulfate 325 Mg Tablet PO Not Given DAILY@1200 JASON Furosemide 40 mg 07/03/24 18:00 07/03/24 20:03 Furosemide 40 Mg/4 Ml Vial IV 40 mg BIDLX JASON Administration Protocol Glucagon 1 mg 07/02/24 20:15 Glucagon 1 Mg/Ml Syringe IM X1 PRN HYPOGLYCEMIA Protocol Guaifenesin 20 ml 07/02/24 20:15 Guaifenesin 10 Ml Udc (200mg/10ml) PO Q4H PRN PRN COUGH Hydralazine HCl 10 mg 07/02/24 20:15 Hydralazine 20 Mg/Ml Vial IV Q4H PRN PRN SBP > 160 Protocol Pantoprazole Sodium 80 mg/ 100 mls @ 10 mls/hr 07/02/24 21:00 07/04/24 08:16 Sodium Chloride CONT INF 10 mls/hr Q10H JASON Administration Dextrose 250 mls @ 0 mls/hr 07/02/24 20:15 Dextrose 10%-Water IV .Q0M PRN HYPOGLYCEMIA Protocol As Directed Sodium Chloride 100 mls @ 15 mls/hr 07/02/24 20:15 IV .Q6H40M PRN Saline Flush Sodium Chloride 100 mls @ 15 mls/hr 07/02/24 20:15 IV .Q6H40M PRN Additional IVPB Infusion Dextrose 250 mls @ 50 mls/hr 07/04/24 10:35 07/04/24 10:47 Dextrose 10%-Water IV 07/04/24 15:34 50 mls/hr .Q5H JASON Administration Insulin Human Lispro 0 unit 07/02/24 20:15 07/04/24 11:21 Insulin Lispro 100 Unit/Ml Insuln.Pen SC Not Given Q6 JASON Protocol Melatonin 3 mg 07/02/24 20:15 Melatonin 3 Mg Tablet PO QHS PRN PRN INSOMNIA Ondansetron HCl 4 mg 07/02/24 20:15 07/03/24 21:43 Ondansetron 4 Mg/2 Ml Vial IV 4 mg Q8H PRN PRN Administration NAUSEA/VOMITING Prochlorperazine Edisylate 5 mg 07/02/24 20:15 Prochlorperazine 10 Mg/2 Ml Vial IV Q4H PRN PRN Breakthrough nausea/vomiting Sodium Chloride 10 - 40 ml 07/02/24 20:15 07/04/24 10:47 0.9% Saline Lock 10 Ml Syringe IV 10 ml UD PRN Administration SALINE FLUSH PFSH Medical History Current use of anticoagulant therapy Severe anemia Aortic stenosis (HFpEF) heart failure with preserved ejection fraction Atrial fibrillation Abnormal EKG Arrhythmia Bilateral knee pain Stool incontinence Elevated brain natriuretic peptide (BNP) level Shortness of breath Anemia Bilateral lower extremity edema Post-viral cough syndrome Hypercalcemia Health care maintenance Vertigo Post-menopausal Gout Obesity Essential (primary) hypertension Type 2 diabetes mellitus History of non-ST elevation myocardial infarction (NSTEMI) (06/08/20) Atherosclerotic heart disease of hopi coronary artery without angina pectoris Dizziness Lightheadedness Headache Home Medications ?Medication ?Instructions ?Recorded ?Last Taken ?Type allopurinol 300 mg tablet 300 mg PO DAILY GOUT 06/08/20 06/11/24 History fluoxetine 10 mg capsule See Rx Instructions .Route 11/06/23 06/11/24 Rx .COMPLEX #90 caps atorvastatin 80 mg tablet 80 mg PO QHS cholesterol #90 tabs 11/12/23 06/11/24 Rx amlodipine 5 mg tablet 5 mg PO DAILY #90 tabs 05/12/24 06/11/24 Rx dulaglutide 0.75 mg/0.5 mL 0.75 mg subcut SA 06/13/24 06/07/24 History subcutaneous pen injector ferrous sulfate 325 mg (65 mg 325 mg PO DAILY #30 tabs 06/15/24 Unknown Rx iron) tablet apixaban 5 mg tablet (Eliquis) 2.5 mg PO BID A-fib 07/02/24 Unknown History cholecalciferol (vitamin D3) 125 125 mcg PO DAILY 07/02/24 Unknown History mcg (5,000 unit) capsule furosemide 20 mg tablet 20 mg PO QAM #30 tabs 07/02/24 Unknown Rx Allergy/AdvReac Type Severity Reaction Status Date / Time No Known Allergies Allergy Verified 07/02/24 18:13 Family History Father Myocardial infarction, Onset Age: 52 Diabetes Hypertension CAD (coronary artery disease) Heart disease Mother Aneurysm Uterine cancer Surgical History History of hernia repair History of cholecystectomy History of left heart catheterization (06/09/20) Social History housing: house Smoking Status: Never smoker alcohol intake: never substance use type: does not use what type of physical activity do you participate in: bicycling frequency: 1-2 times per week Review of Systems (Anesthesia) ROS Narrative System reviewed and no additional complaints, except as documented.
--- NOTE | 2024-07-04 12:00 | COLBX_PTH ---
PATIENT: MARGOT GARVIN I LOC: MS3 U#:[id number] AGE/SX: 79/F [place]OM[place] [facility] [place]: Dr. Yovanny Cruz MD : 1945 BED: 1 DIS: 07/05/2024 SPEC #: [id number] RECD: 07/04/24 16:41 STATUS: ADALBERTO REStu #: [id number] JIMBO: 07/04/24 12:[address]: Emmanuel Yin DEPT: SURGICAL PATHOLOGY RECD BY: Mayco Moura ENTERED: 07/07/24 07:35 SP TYPE: COLON BX OTHR DR: MD Dr. Julito Reed MD Dr. Efewongbe Oleghe, MD Dr. Jayaprakas Dasari, MD Dr. Prakash Chand, MD Tissues: A - Transverse colon B - Ascending colon C - SPLENIC FLEXURE Procedures: Surgery Specimen Level IV HEADER OPERATION: Colonoscopy, biopsy, polypectomy PRE-OP DIAGNOSIS: Acute anemia, acute kidney injury, acute upper GI bleeding TISSUE SUBMITTED: A- Transverse colon polyp and polyp biopsy, B- Ascending colon polyp x2, C- Splenic flexure polyp MICROSCOPIC DIAGNOSIS A. Transverse colon, polyp, biopsy: * Tubular adenoma B. Ascending colon, polyp x 2, biopsy: * Tubular adenomas C. Colon, splenic flexure, polyp, biopsy: * Tubular adenoma MICROSCOPIC DESCRIPTION Slides are reviewed. GROSS DESCRIPTION A. Received in formalin in a container labeled with the patient's name, date of , and transverse colon polyp and polyp biopsy are multiple astudillo-pink fragments of mucosal tissue measuring 1.5 x 0.8 x 0.3 cm in aggregate. Submitted in toto in A1. B. Received in formalin in a container labeled with the patient's name, date of , and ascending colon polyp x 2 are multiple astudillo-pink fragments of mucosal tissue measuring 1.5 x 1.5 x 0.6 cm in aggregate. The largest fragment is sectioned (no margin identified). Submitted entirely in B1. C. Received in formalin in a container labeled with the patient's name, date of , and splenic flexure polyp are 3 astudillo-pink fragments of mucosal tissue ranging from 0.2 x 0.2 x 0.2 cm to 0.5 x 0.4 x 0.3 cm. Submitted in toto in C1. [facility] 07/08/2024 CPT:69029k4
--- NOTE | 2024-07-04 12:01 | PN_ITS ---
Progress Note The patient was not cleared this morning. I gave her a soapsuds enema. Stool was noted to be liquid. Physical Exam Narrative Alert and oriented, no apparent distress. Sitting in chair S1, S2, RRR Lungs sound clear anteriorly and posteriorly. No wheezes, rhonchi or rales. On room air Abdomen soft, nontender Trace to 1+ pitting edema bilateral lower legs Assessment & Plan Assessment/Plan (1) Acute anemia: (2) GERBER (acute kidney injury): (3) Acute upper GI bleeding: PLAN: Plan The patient is a 79 y/o F w/ CAD status post STEMI 06/08/2020, Chronic anemia/Fe deficiency anemia, Valvular Heart Disease, Diabetes mellitus type II, Gout, Anxiety and Depression who presents to [facility] ED on with history of recent increased dark stools Acute GI Bleed w/ resultant Acute on chronic anemia/iron deficiency anemia: Admission hemoglobin 6.3, guaiac positive, baseline hemoglobin more recently 7 range however patient has slowly tended down since the end of 2023, will hold Eliquis therapy, hold aspirin therapy concurrently, obtain serial H+H q 4 hours, continue with ED plan of 2 unit PRBC administration, will maintain on IV PPI, will allow clear liquids with n.p.o. status after midnight. Patient will undergo upper endoscopy to evaluate upper GI tract. She was explained alternatives, risk and benefits Deena was any bleeding, fracture, subsequent perforation, need for urgent . She have an ASA of 3., Findings from upper endoscopy: No gross lesions were noted in the entire esophagus. A small hiatal hernia was present. No other significant abnormalities were identified in a careful examination of the stomach. No gross lesions were noted in the entire examined duodenum. Impression: - No gross lesions in the entire esophagus. - Small hiatal hernia. - No gross lesions in the entire examined duodenum. - No specimens collected. Recommendation: - Return patient to [facility] for [facility] care. - Clear liquid diet. - Continue present medications. - Schedule colonoscopy Visit Charges Inpatient E&M: [id number] [facility] H[facility] L3
--- NOTE | 2024-07-04 13:11 | PCM.POST.ANE ---
Anesthesia: Postop Eval I Current Vital Signs Temperature: 98.4 F Pulse Rate: 71 Blood Pressure: 104/80 Respiratory Rate: 16 Pulse Ox: 97 Oxygen Delivery Method: Nasal Cannula Oxygen Flow Rate (L/min): 2 Assessment Airway patent: Yes Spontaneous unlabored respirations: Yes Mental status: Awake nausea: No Vomiting: No Anesthesia Complication: No Fluid Hydration Crystalloid volume administer (ml): 90 Total IV fluid infused: 90 Progress Note Anesthesia document: Postop Eval 1 completed: Yes
--- NOTE | 2024-07-04 13:17 | OP.CCLET_ITS ---
07/04/2024 Carole Sheehan MD [address] [place] [address] [place] [address] Re : Colonoscopy procedure for Katie Urban Dear Dr. Sheehan This procedure was performed on Thursday, July 04, 2024. My impressions and recommendations are as follows: Impressions : - Preparation of the colon was fair. - Diverticulosis in the recto-sigmoid colon, in the sigmoid colon and in the descending colon. - Multiple 1 to 2 mm polyps in the ascending colon and in the cecum, removed with a hot snare. Resected and retrieved. Clip was placed. Clip wire frame lamp shade maker: Setup. - Three bleeding colonic angiodysplastic lesions. Treated with a monopolar probe. - One non-bleeding colonic angiodysplastic lesion. Treated with a monopolar probe. - One 5 mm polyp at the splenic flexure, removed with a jumbo cold forceps. Resected and retrieved. - Stool in the rectum, in the recto-sigmoid colon, in the sigmoid colon and in the cecum. Recommendations : - Return patient to [facility] for ongoing care. - Resume regular diet. - Continue present medications. - Await pathology results. - Repeat colonoscopy in 1 year for surveillance. My findings are described in the full procedure note, which is enclosed. If I can be of further assistance, please feel free to contact me at . Sincerely, Emmanuel Yin, 07/04/2024 1:16:52 PM This report has been signed electronically.
--- NOTE | 2024-07-04 13:17 | OP.COLON_ITS ---
Patient Name: Katie Urban Procedure Date: 07/04/2024 12:06 PM Date of : 1945 Age: 79 Procedure: Colonoscopy Indications: Gastrointestinal occult blood loss, Gastrointestinal bleeding, Iron deficiency anemia Providers: Emmanuel Yin DO Medicines: Monitored Anesthesia Care Patient Profile: This is a 79 year old female. Refer to note in patient chart for documentation of history and physical. Last Colonoscopy: none. The patient's first colonoscopy is today. Complications: No immediate complications. Procedure: Pre-Anesthesia Assessment: - Prior to the procedure, a History and Physical was performed, and patient medications and allergies were reviewed. The patient is competent. The risks and benefits of the procedure and the sedation options and risks were discussed with the patient. All questions were answered and informed consent was obtained. Patient identification and proposed procedure were verified by the physician in the pre-procedure area. Mental Status Examination: alert and oriented. Airway Examination: normal oropharyngeal airway and neck mobility. Respiratory Examination: clear to auscultation. CV Examination: normal. Prophylactic Antibiotics: The patient does not require prophylactic antibiotics. Prior Anticoagulants: The patient has taken no anticoagulant or antiplatelet agents except for NSAID medication. ASA Grade Assessment: II - A patient with mild systemic disease. After reviewing the risks and benefits, the patient was deemed in satisfactory condition to undergo the procedure. The anesthesia plan was to use monitored anesthesia care (MAC). Immediately prior to administration of medications, the patient was re-assessed for adequacy to receive sedatives. The heart rate, respiratory rate, oxygen saturations, blood pressure, adequacy of pulmonary ventilation, and response to care were monitored throughout the procedure. The physical status of the patient was re-assessed after the procedure. After I obtained informed consent, the scope was passed under direct vision. Throughout the procedure, the patient's blood pressure, pulse, and oxygen saturations were monitored continuously. The Colonoscope was introduced through the anus and advanced to the cecum, identified by appendiceal orifice and ileocecal valve. The colonoscopy was performed without difficulty. The patient tolerated the procedure well. The quality of the bowel preparation was fair. The ileocecal valve, appendiceal orifice, and rectum were photographed. Scope In: 12:20:50 PM Scope Withdrawal Time 0 hours 29 minutes 53 seconds Scope Out: 12:57:47 PM Total Procedure Duration Time 0 hours 36 minutes 57 seconds Findings: The perianal and digital rectal examinations were normal. Multiple small and large-mouthed diverticula were found in the recto-sigmoid colon, sigmoid colon and descending colon. Multiple sessile polyps were found in the ascending colon and cecum. The polyps were 1 to 2 mm in size. These polyps were removed with a hot snare. Resection and retrieval were complete. Verification of patient identification for the specimen was done. Estimated blood loss was minimal. To prevent bleeding after the polypectomy, one hemostatic clip was successfully placed. Clip senior manager mmcoe: [employer]. There was no bleeding at the end of the procedure. Three small localized angiodysplastic lesions with bleeding were found in the transverse colon. Coagulation for hemostasis using monopolar probe was successful. Estimated blood loss was minimal. One small localized angiodysplastic lesion without bleeding was found in the rectum. Coagulation for destruction of remaining portion of lesion using monopolar probe was successful. Estimated blood loss was minimal. A 5 mm polyp was found in the splenic flexure. The polyp was sessile. The polyp was removed with a jumbo cold forceps. Resection and retrieval were complete. Verification of patient identification for the specimen was done. Estimated blood loss was minimal. Stool was found in the rectum, in the recto-sigmoid colon, in the sigmoid colon and in the cecum. Impression: - Preparation of the colon was fair. - Diverticulosis in the recto-sigmoid colon, in the sigmoid colon and in the descending colon. - Multiple 1 to 2 mm polyps in the ascending colon and in the cecum, removed with a hot snare. Resected and retrieved. Clip was placed. Clip senior manager mmcoe: [employer]. - Three bleeding colonic angiodysplastic lesions. Treated with a monopolar probe. - One non-bleeding colonic angiodysplastic lesion. Treated with a monopolar probe. - One 5 mm polyp at the splenic flexure, removed with a jumbo cold forceps. Resected and retrieved. - Stool in the rectum, in the recto-sigmoid colon, in the sigmoid colon and in the cecum. Recommendation: - Return patient to [facility] for ongoing care. - Resume regular diet. - Continue present medications. - Await pathology results. - Repeat colonoscopy in 1 year for surveillance. Procedure Code(s): --- Professional --- 32136, Colonoscopy, flexible; with ablation of tumor(s), polyp(s), or other lesion(s) (includes pre- and post-dilation and guide wire passage, when performed) 00252, 59,51, Colonoscopy, flexible; with control of bleeding, any method 18024, 59, Colonoscopy, flexible; with removal of tumor(s), polyp(s), or other lesion(s) by snare technique 03594, 59, Colonoscopy, flexible; with biopsy, single or multiple CPT copyright 2021 [employer]. All rights reserved. The codes documented in this report are preliminary and upon forestry fire aid review may be revised to meet current compliance requirements. Emmanuel Yin DO 07/04/2024 1:16:52 PM This report has been signed electronically. Number of Addenda: 0 Note Initiated On: 07/04/2024 12:06 PM
--- NOTE | 2024-07-04 14:05 | PCM.POSTANE2 ---
Anesthesia Postop Eval I Sum Postop Eval Completion status Anesthesia document: Postop Eval 1 completed: Yes Anesthesia Postop Eval I Summary Anesthesia Postop Eval I Summary: Anesthesia Postop Eval I: Assessment Summary Airway patent Yes 07/04/24 13:12 [email or web address] Spontaneous unlabored Yes 07/04/24 13:12 [email or web address] respirations Mental status Awake 07/04/24 13:12 [email or web address] nausea No 07/04/24 13:12 [email or web address] Vomiting No 07/04/24 13:12 [email or web address] Anesthesia Postop Eval I: Fluid Summary Crystalloid volume administer 90 07/04/24 13:12 [email or web address] (ml) Colloids volume administered ( ml) Blood Product volume administered (ml) Total IV fluid infused 90 07/04/24 13:12 [email or web address] Anesthesia Postop Eval I: Summary Notes Anesthesia Complication No 07/04/24 13:12 [email or web address] Anesthesia Complication Comment: Post-operative progress note Anesthesia: Postop Eval II Evaluation Mental status: Awake Pain Level: 0 nausea: No Vomiting: No
--- NOTE | 2024-07-04 14:06 | ANES.CONFIRM ---
Anesthesia: Confirm Documents Multiple Procedures on Account (2) Confirmed Documents: Yes
[2024-07-04 14:16] LABS: Bedside Glucose 92 mg/dL (74-106)
[2024-07-04] MEDS: Furosemide 40 MG/4 ML Vial IV (14:37)
[2024-07-04] MEDS: Allopurinol 300 MG Tablet PO (14:38)
[2024-07-04] MEDS: Ferrous Sulfate 325 MG Tablet PO (14:38)
[2024-07-04] MEDS: amLODIPine 5 MG Tablet PO (14:38)
[2024-07-04 16:10] LABS: Bedside Glucose 124 mg/dL (74-106)
[2024-07-04] MEDS: Atorvastatin Calcium 80 MG Tablet PO (22:06)
[2024-07-04 22:42] LABS: Bedside Glucose 91 mg/dL (74-106)
[2024-07-05 06:24] VITALS: BMI 31.3
[2024-07-05 06:25] VITALS: BP 129/67; PULSE 83; RESP 18; TEMP 36.8; O2SAT 96
[2024-07-05 06:34] LABS: Absolute Lymphocyte Count 0.34 X10^3/uL (0.83-4.51); Absolute Neutrophil Count 13.7 X10^3/uL (2.0-7.7); Basophil# 0.03 X10^3/uL; Basophil% 0.2 % (0-1); Eosinophil# 0.04 X10^3/uL; Eosinophils% 0.3 % (0-5); Hematocrit 25.5 % (37-47); Hemoglobin 8.2 g/dL (12.0-15.0); Lymphocyte # 0.34 X10^3/ul (0.83-4.51); Lymphocyte % 2.3 % (19-41); Mean Corp Hgb Conc 32.2 g/dL (32-36); Mean Corpuscular Hgb 31.1 pg (27.0-32.0); Mean Corpuscular Volume 96.6 fL (81-99); Mean Platelet Vol. 10.2 fl (6.2-12.0); Monocyte# 0.61 X10^3/uL; Monocyte% 4.1 % (0-10); NRBC Flagged by Analyzer 0 % (0-5); Neutrophil # 13.66 X10^3/uL (2.7-7.7); Neutrophil % 92.8 % (47-70); POSITIVE DIFFERENTIAL YES; Platelet Count 166 K/mm3 (150-450); RBC Distribution Width CV 18.6 % (11.6-14.6); Red Blood Count 2.64 M/mm3 (4.2-5.4); White Blood Count 14.7 K/mm3 (4.4-11.0)
[2024-07-05] MEDS: Acetaminophen 325 MG Tablet 650 MG PO (06:40)
[2024-07-05 07:02] LABS: Bedside Glucose 96 mg/dL (74-106)
[2024-07-05 07:12] LABS: Anion Gap 14 (5-15); BUN 38 mg/dL (4-19); Carbon Dioxide 19.2 mmol/L (21.0-32.0); Chloride 104 mmol/L (98-108); Creatinine, Serum 3.48 mg/dL (0.70-1.20); EST Glomerular Filtration Rate 13 (>60); Estimated Creatinine Clearance 13.02 ml/min (50-250); Glucose 89 mg/dL (70-99); Potassium 3.6 mmol/L (3.3-5.1); Sodium Level 137 mmol/L (133-145)
[2024-07-05 08:02] VITALS: O2SAT 95
[2024-07-05] MEDS: Furosemide 40 MG/4 ML Vial IV (10:06)
[2024-07-05] MEDS: amLODIPine 5 MG Tablet PO (10:07)
[2024-07-05] MEDS: Allopurinol 300 MG Tablet PO (10:09)
[2024-07-05] MEDS: Pantoprazole Sodium 40 MG Tablet PO (10:09)
[2024-07-05 11:00] VITALS: BP 123/60; PULSE 87; RESP 18; TEMP 36.8; O2SAT 97
[2024-07-05 11:06] VITALS: PULSE 87; RESP 18; O2SAT 96
--- NOTE | 2024-07-05 11:38 | DCINST_ITS ---
Discharge Instructions Diet Discharge Diet: Light diet - advance as tolerated DC O2, CPAP, BIPAP needs Home O2 Discharge instructions: No Dressing / Incision Discharge Activity: Return to Normal Activity Weight Bearing Status: Weight bearing as tolerated Dressing / Incision Call your doctor if you observe: Fever of 101 or Higher, Coldness, Increased Sheron n, Numbness or Tingling, Change in Color, Inability to urinate, Inability to have a bowel movement, Shortness of breath, Dizziness, Fainting spells, Swelling in the ankles, Chest pain, Prolonged hiccupping, Increased palpitations (irregular heartbeat) and Calf discomfort Follow Up Care When: IN 2 WEEKS Test Results: Test results from this visit will be discussed in further detail at your follow- up appointment, if applicable. Discharge Plan Admission Admit Date/Time: 07/02/24 19:08 Primary Reason for Your Visit: GERBER on CKD, severe anemia, GI bleed Attending Provider: Yovanny Cruz Primary Care Provider: Carole Sheehan Consulting Providers: Amanda Almazan; Juan Carlos Haider; Julito Blunt Discharge Orders/Prescriptions Prescriptions: New insulin lispro [Humalog KwikPen Insulin] 100 unit/mL Insulin Pen See Protocol subcut Q6 Qty: 0 0RF Protocol: 3. Sliding Scale Insulin Med Dosing Condition: 150-189 mg/dl = 1 unit Condition: 190-229 mg/dl = 2 units Condition: 230-269 mg/dl = 3 units Condition: 270-309 mg/dl = 4 units Condition: 310-349 mg/dl = 5 units Condition: 350-399 mg/dl = 6 units Condition: 400-449 mg/dl = 7 units Condition: Greater than 449 call physician Protocol Text: - Use for Total Daily Dose of Insulin 37-55 units - Obsese, infected, or steroid patients MEDIUM DOSING ALGORITHIM Continued amlodipine 5 mg tablet 5 mg PO DAILY Qty: 90 3RF dulaglutide 0.75 mg/0.5 mL pen injector 0.75 mg subcut SA cholecalciferol (vitamin D3) 125 mcg (5,000 unit) capsule 125 mcg PO DAILY fluoxetine 10 mg capsule See Rx Instructions .ROUTE .COMPLEX Qty: 90 1RF Dose Instruction: TAKE 1 CAPSULE BY MOUTH EVERY DAY Rx Instructions: TAKE 1 CAPSULE BY MOUTH EVERY DAY atorvastatin 80 mg tablet 80 mg PO QHS Qty: 90 1RF Changed ferrous sulfate 325 mg (65 mg iron) tablet 325 mg PO QODAY Qty: 30 0RF allopurinol 300 MG tablet 300 mg PO QMWF 30 Days Qty: 0 0RF Rx Instructions: Adjusted for creatinine clearance about 15 mL/min furosemide 20 mg tablet 40 mg PO BID Qty: 30 11RF Held Eliquis 5 mg tablet 2.5 mg PO BID Hold Instructions: Hold for 5 days Referrals / Follow Up: Carole Sheehan MD [Primary Care Provider] - Juan Carlos Haider MD [Med Staff - Consulting] - Within 2 Weeks Kristin Oneill NP-C [Med Staff - Adv Practice Prof] - Within 1 Month (For lower GI bleed. Multiple polypectomy) Disposition Disposition (needs filled in before D/C Order can be placed): Home, Self Care
--- NOTE | 2024-07-05 11:49 | PCM.DC.SUM ---
Providers Date of Admission: 07/02/24 Date of Discharge: 07/05/24 Primary Care Physician: Dr. Carole Sheehan MD Consultations 07/02/24 20:15 Consult: Gastroenterology Routine Consulting Provider: [facility] Reason for Consult: GI bleed, ABLA EMERGENT Consult: No Notified: Yes Date Notified: 07/02/24 Time Notified: 19:09 Method of Notification: Text 07/03/24 08:13 Consult: Nephrology Routine Consulting Provider: Juan Carlos Haider Reason for Consult: CKD IV EMERGENT Consult: No Notified: Yes Date Notified: 07/03/24 Time Notified: 09:33 Method of Notification: Answering Service Reason For Visit: GI BLEED ABLA GERBER Diagnosis Discharge Diagnosis (1) GERBER (acute kidney injury): Status: Acute Code(s): N17.9 - Acute kidney failure, unspecified (2) CKD (chronic kidney disease) stage 3, GFR 30-59 ml/min: Status: Chronic Code(s): N18.30 - Chronic kidney disease, stage 3 unspecified (3) Acute anemia: Status: Acute Code(s): D64.9 - Anemia, unspecified Plan Patient is a 79-year-old lady with history of paroxysmal atrial fibrillation on systemic anticoagulation with apixaban who presented to the emergency department with melena. Patient hemoglobin on admission was 6.3. She was also noted to have worsening kidney function with creatinine up to 3.36 from a baseline of 2.5. 1. Acute blood loss on chronic anemia: ? Secondary to acute on chronic blood loss anemia exacerbated by the use of systemic anticoagulant?apixaban. Patient hemoglobin on admission was 6.3. Patient apixaban and aspirin held. Admitted to regular nursing floor patient was transfused with 2 unit PRBC from the ED started on PPI and consultation placed to GI 07/04: H&H improved to 7.9/24.5%. Platelet count 166K. Patient went for colonoscopy Colonoscopy on 07/04/2024 Impression: - Preparation of the colon was fair. - Diverticulosis in the recto-sigmoid colon, in the sigmoid colon and in the descending colon. - Multiple 1 to 2 mm polyps in the ascending colon and in the cecum, removed with a hot snare. Resected and retrieved. Clip was placed. 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 - Three bleeding colonic angiodysplastic lesions. Treated with a monopolar probe. - One non-bleeding colonic angiodysplastic lesion. Treated with a monopolar probe. - One 5 mm polyp at the splenic flexure, removed with a jumbo cold forceps. Resected and retrieved. - Stool in the rectum, in the recto-sigmoid colon, in the sigmoid colon and in the cecum. Recommendation: - Await pathology results. - Repeat colonoscopy in 1 year for surveillance. EGD on 07/03/2024 Impressions : - No gross lesions in the entire esophagus. - Small hiatal hernia. - No gross lesions in the entire examined duodenum. - No specimens collected. Recommendations : - Return patient to [facility] for [facility] care. - Clear liquid diet. - Continue present medications. H&H 8.2/25.5%. Platelet count 166 K. PPI was discontinued as patient does not have upper GI bleed or gastric ulcer. Patient also has significan GERBER on CKD stage IIIb therefore PPI not good for CKD. Advised follow-up with GI clinic in 1 month 2. Acute kidney injury Superimposed on chronic kidney disease stage IIIB. Has been a gradual worsening of patient kidney function. Patient is on furosemide held on admission. Renal ultrasound ordered and consultation placed to nephrology 07/04: BUN/creatinine 36/3.06 07/05: BUN/creatinine 38/3.48 but creatinine clearance is similar, no significant about 13?15 mL/min 3. Acute on chronic congestive heart failure ? With preserved ejection fraction patient has a known EF of 55 to 60%. Patient furosemide held in view of above reasons. Patient however is currently in acute congestive heart failure following the blood transfusion as well as her diuretics subsequently held. Patient diuretics restarted. Strict input and output, daily weight, as well as fluid restriction. Follow-up with [employer] set up technician in 2 weeks 07/05: Patient discharged on furosemide 40 mg oral twice daily. Acute heart failure resolved. Patient has lower extremity edema 4. Paroxysmal A-fib ? Rate controlled. Patient previously did not tolerate metoprolol as a result of bradycardia. Patient is on apixaban held in view of her acute GI bleed 07/05: Heart rate and blood pressure control. Continue holding Eliquis and resume after 5 days probably lower dose 2.5 mg twice daily 5. Coronary artery disease ? Patient has known history of ASCVD not amenable to PCI cardiology recommended optimization of medical therapy. Cardiology also recommended that discontinuation of aspirin 6. Class I obesity with BMI of 31 ? Weight loss advised 7. Dyslipidemia ?Patient is on statin therapy, continued at home dose 8. Diabetes mellitus type 2 ? Placed on Accu-Cheks before meals and at bedtime with sliding scale coverage 07/04: Glucose in Accu-Cheks low normal at about 77. Patient being NPO. Started on D10 while n.p.o. to prevent hypoglycemia. 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 07/05: Patient will cause is about 100. Only on Humalog sliding scale insulin. 9. Hypertension ? Blood pressure controlled, home medications continued with dose adjustment as needed 10. Gout ? Patient is on allopurinol did continue 11. Depression with anxiety ? Patient is on fluoxetine did continue 12. Physical deconditioning ? Requested for PT OT eval and bilingual social worker to assist with discharge planning 13. DVT prophylaxis ? On apixaban held as a result of GI bleed Discharge medication reconciliation done. Discharge follow-up instructions completed. Discharge process discussed with the patient and all questions were answered to patient's satisfaction. Follow with PCP in 1 to 2 weeks Total time spent, exact 35 minutes on discharge meds reconciliation, examination, coordination of care with nurses and ancillary staff, review of imaging and blood test and discussion with the patient on follow-up instructions. Medications at Discharge Home Medications fluoxetine 10 mg capsule See Rx Instructions .Route .COMPLEX #90 caps 11/06/23 atorvastatin 80 mg tablet 80 mg PO QHS cholesterol #90 tabs 11/12/23 amlodipine 5 mg tablet 5 mg PO DAILY #90 tabs 05/12/24 dulaglutide 0.75 mg/0.5 mL subcutaneous pen injector 0.75 mg subcut 06/13/24 apixaban 5 mg tablet (Eliquis) 2.5 mg PO BID A-fib 07/02/24 Held on 07/05/24. Instructions: Hold for 5 days then resume lower dose 2.5 mg twice daily cholecalciferol (vitamin D3) 125 mcg (5,000 unit) capsule 125 mcg PO DAILY 07/02/24 allopurinol 300 mg tablet 300 mg PO QMWF GOUT 30 days #0 tabs 07/05/24 ferrous sulfate 325 mg (65 mg iron) tablet 325 mg PO QODAY #30 tabs 07/05/24 furosemide 20 mg tablet 40 mg (2 x 20 mg) PO BID #30 tabs 07/05/24 insulin lispro 100 unit/mL subcutaneous pen (Humalog KwikPen (U-100) Insulin) See Protocol subcut Q6 #0 mL 07/05/24 Physical Exam Narrative Seen and examined. She states her shortness of breath is better and she is around baseline. Patient not on oxygen. Heart rate and blood pressure is good Physical exam General: Alert, Oriented x3, Cooperative HEENT: Atraumatic, PERRLA, EOMI, Normocephalic Oral: No Gingival or Mucosal Lesions/ Ulcerations Neck: Supple, No JVD, Negative Carotid Bruits Chest wall/Lungs: Air entry diminished in bilateral lung bases. No crepitation/rhonchi Cardiovascular: Regular rate, Regular Rhythm, Normal S1, Normal S2, systolic murmur. Abdomen: Bowel Sounds Present, Soft, Non Tender, Non-Distended : No dysuria. No renal angle tenderness. No suprapubic tenderness. Extremities: Bilateral pitting edema 2+, Capillary Refill Less than 3 Seconds Skin: Left arm/elbow bruise and some known right arm. Musculoskeletal: No Tenderness to Palpation of Joints or Extremities Neurological: Cranial nerves II-XII grossly intact, DTR 2+/4. No acute focal neurological deficit. Psych/Mental Status: Flat affect. Weight / BMI Weight Weight: 170 lb 3.15 oz Body Mass Index (BMI) 31.3 ABG / Lab / Microbiology Data 07/05/24 05:45 07/05/24 05:45 Laboratory: Laboratory Results - last 24 hr 07/04/24 13:57: POC Glucose 92 07/04/24 15:53: POC Glucose 124 H 07/04/24 22:06: POC Glucose 91 07/05/24 05:45: WBC 14.7 H, RBC 2.64 L, Hgb 8.2 L, Hct 25.5 L, MCV 96.6, MCH 31.1, MCHC 32.2, RDW Std Deviation 65.0 H, RDW Coeff of [place] 18.6 H, Plt Count 166, MPV 10.2, Immature Gran % (Auto) 0.300, Neut % (Auto) 92.8 H, Lymph % (Auto) 2.3 L, [place] % (Auto) 4.1, Eos % (Auto) 0.3, Baso % (Auto) 0.2, Absolute Neuts (auto) 13.7 H, Absolute Lymphs (auto) 0.34 L, Nucleated RBC % 0, Sodium 137, Potassium 3.6, Chloride 104, Carbon Dioxide 19.2 L, Anion Gap 14, BUN 38 H, Creatinine 3.48 H, Estim Creat Clear Calc 13.02 L, Est GFR (MDRD) Non-Af 13 L, BUN/Creatinine Ratio 11.0, Glucose 89, Calcium 10.0 07/05/24 06:44: POC Glucose 96 Microbiology: Microbiology 07/02/24 18:32 Stool Stool Occult Blood (PUNEET) - Final Occult Blood Positive D/C Instructions Discharge Diet: Light diet - advance as tolerated Weight Bearing Status: Weight bearing as tolerated Call your doctor if you observe: Fever of 101 or Higher, Coldness, Increased Pain, Numbness or Tingling, Change in Color, Inability to urinate, Inability to have a bowel movement, Shortness of breath, Dizziness, Fainting spells, Swelling in the ankles, Chest pain, Prolonged hiccupping, Increased palpitations (irregular heartbeat) and Calf discomfort DC O2, CPAP, BIPAP Needs Home O2 Discharge instructions: No When: IN 2 WEEKS Meaningful Use Info Meaningful Use Meaningful Use Diagnoses (Choose all that apply): None applicable Ischemic Stroke Statin Dosing Therapy Reference: STATIN DOSE THERAPY REFERENCE: * Patients > 75 years receive moderate or high dose statin therapy. * Patients 75 years or YOUNGER should receive HIGH intensity statin dose unless contraindicated. You will be required to document reason for non-treatment if statin daily dose does not meet guidelines. HIGH DOSE STATIN THERAPY DAILY Atorvastatin > than or = to 40 mg Rosuvastatin > than or = to 20 mg Amlodipine + Atorvastatin > than or = to 2.5/40 mg Ezetimibe + Simvastatin 10/80 mg Simvastatin 80mg Discharge Plan Admission Admit Date/Time: 07/02/24 19:08 Primary Reason for Your Visit: GERBER on CKD, severe anemia, GI bleed Attending Provider: Yovanny Cruz Primary Care Provider: Carole Sheehan Consulting Providers: Amanda Almazan; Juan Carlos Haider; Julito Blunt Discharge Orders/Prescriptions Prescriptions: New insulin lispro [Humalog KwikPen Insulin] 100 unit/mL Insulin Pen See Protocol subcut Q6 Qty: 0 0RF Protocol: 3. Sliding Scale Insulin Med Dosing Condition: 150-189 mg/dl = 1 unit Condition: 190-229 mg/dl = 2 units Condition: 230-269 mg/dl = 3 units Condition: 270-309 mg/dl = 4 units Condition: 310-349 mg/dl = 5 units Condition: 350-399 mg/dl = 6 units Condition: 400-449 mg/dl = 7 units Condition: Greater than 449 call physician Protocol Text: - Use for Total Daily Dose of Insulin 37-55 units - Obsese, infected, or steroid patients MEDIUM DOSING ALGORITHIM Continued amlodipine 5 mg tablet 5 mg PO DAILY Qty: 90 3RF dulaglutide 0.75 mg/0.5 mL pen injector 0.75 mg subcut SA cholecalciferol (vitamin D3) 125 mcg (5,000 unit) capsule 125 mcg PO DAILY fluoxetine 10 mg capsule See Rx Instructions .ROUTE .COMPLEX Qty: 90 1RF Dose Instruction: TAKE 1 CAPSULE BY MOUTH EVERY DAY Rx Instructions: TAKE 1 CAPSULE BY MOUTH EVERY DAY atorvastatin 80 mg tablet 80 mg PO QHS Qty: 90 1RF Changed ferrous sulfate 325 mg (65 mg iron) tablet 325 mg PO QODAY Qty: 30 0RF allopurinol 300 MG tablet 300 mg PO QMWF 30 Days Qty: 0 0RF Rx Instructions: Adjusted for creatinine clearance about 15 mL/min furosemide 20 mg tablet 40 mg PO BID Qty: 30 11RF Held Eliquis 5 mg tablet 2.5 mg PO BID Hold Instructions: Hold for 5 days then resume lower dose 2.5 mg twice daily Referrals / Follow Up: Carole Sheehan MD [Primary Care Provider] - Juan Carlos Haider MD [Med Staff - Consulting] - Within 2 Weeks Kristin Oneill NP-C [Med Staff - Adv Practice Prof] - Within 1 Month (For lower GI bleed. Multiple polypectomy) Disposition Disposition (needs filled in before D/C Order can be placed): Home, Self Care Charges/Coding Visit Charges Inpatient E&M: 51254 Disch Hosp >30min
[2024-07-05 11:58] LABS: Bedside Glucose 97 mg/dL (74-106)
== END 2024-07-05 15:38 | disposition home or self-care (01) | DRG 377 ==
LOC: ED 19:39 → MS3 20:04
PROVIDERS: Anesthesiology; Internal Medicine; Internal Medicine Gastroenterology; Nurse Practitioner; Nurse Practitioner Adult Health; Admitting Provider Family Medicine; Emergency Provider Emergency Medicine; PCP Internal Medicine; Visit Provider Internal Medicine
PROC: 0DJ08ZZ Inspection of Upper Intestinal Tract, Via Natural or Artificial Opening Endoscopic (ICD-10-PCS; CPT 43235; principal; 2024-07-03 17:55)
PROC: 0DJD8ZZ Inspection of Lower Intestinal Tract, Via Natural or Artificial Opening Endoscopic (ICD-10-PCS; CPT 45378; principal; 2024-07-04 11:55)
DX: K55.21 Angiodysplasia of colon with hemorrhage (principal); I50.33 Acute on chronic diastolic (congestive) heart failure; N17.0 Acute kidney failure with tubular necrosis; D68.32 Hemorrhagic disorder due to extrinsic circulating anticoagulants; D62 Acute posthemorrhagic anemia; I13.0 Hypertensive heart and chronic kidney disease with heart failure and stage 1 through stage 4 chronic kidney disease, or unspecified chronic kidney disease; E83.39 Other disorders of phosphorus metabolism; E11.22 Type 2 diabetes mellitus with diabetic chronic kidney disease; N18.32 Chronic kidney disease, stage 3b; D50.9 Iron deficiency anemia, unspecified; I35.0 Nonrheumatic aortic (valve) stenosis; E66.811 Obesity, class 1; I48.0 Paroxysmal atrial fibrillation; E78.5 Hyperlipidemia, unspecified; F41.8 Other specified anxiety disorders; I25.10 Atherosclerotic heart disease of native coronary artery without angina pectoris; I25.2 Old myocardial infarction; M10.9 Gout, unspecified; K57.30 Diverticulosis of large intestine without perforation or abscess without bleeding; D12.3 Benign neoplasm of transverse colon; D12.2 Benign neoplasm of ascending colon; K44.9 Diaphragmatic hernia without obstruction or gangrene; T45.515A Adverse effect of anticoagulants, initial encounter; Z79.01 Long term (current) use of anticoagulants; Z68.31 Body mass index [BMI] 31.0-31.9, adult; Z87.19 Personal history of other diseases of the digestive system; Z90.49 Acquired absence of other specified parts of digestive tract; Z79.85 Long-term (current) use of injectable non-insulin antidiabetic drugs; Z79.899 Other long term (current) drug therapy
CPT/HCPCS: 36415; 71045; 76770; 80048; 80053; 81001; 82274; 82570; 82962; 83735; 83880; 84100; 84156; 84300; 85014; 85018; 85025; 85027; 85610; 85730; 86850; 86900; 86901; 88305; 93005; 94668; 97116; 97162; 97166; 97530; 97535; 99284; P9016; A4216; J1938; J2405

== ENCOUNTER → 2024-07-02 | Outpatient (CLI) | payer MEDICARE, SELFPAY ==
[2024-07-02 15:25] LABS: Hematocrit 20.8 % (37-47); Hemoglobin 6.3 g/dL (12.0-15.0); Mean Corp Hgb Conc 30.3 g/dL (32-36); Mean Corpuscular Hgb 30.3 pg (27.0-32.0); Mean Platelet Vol. 10.3 fl (6.2-12.0); POSITIVE MORPHOLOGY YES; Platelet Count 205 K/mm3 (150-450); RBC Distribution Width CV 19.2 % (11.6-14.6); RBC Distribution Width SD 69.7 fl (35.1-43.9); Red Blood Count 2.08 M/mm3 (4.2-5.4); White Blood Count 7.6 K/mm3 (4.4-11.0)
[2024-07-02 16:24] LABS: ALB/GLOB Ratio 1.3 RATIO (0.9-2.4); AST(SGOT) 27 U/L (<=31); Alanine Aminotransfer ALT/SGPT 19 U/L (<=34); Albumin, Serum 3.6 g/dL (3.4-4.8); Alkaline Phosphatase 100 U/L (35-104); Anion Gap 13 (5-15); BUN 38 mg/dL (4-19); BUN/Creat Ratio 11.3 RATIO (10-20); Calcium,Total 10.9 mg/dL (7.6-11.0); Carbon Dioxide 22.9 mmol/L (21.0-32.0); Chloride 105 mmol/L (98-108); Creatinine, Serum 3.36 mg/dL (0.70-1.20); EST Glomerular Filtration Rate 14 (>60); Globulin 2.8 g/dL (2.2-4.2); Glucose 109 mg/dL (70-99); Potassium 4.2 mmol/L (3.3-5.1); Protein, Total 6.5 g/dL (5.9-8.4); Sodium Level 141 mmol/L (133-145); Total Bilirubin 0.46 mg/dL (0.00-1.30)
[2024-07-02 23:10] LABS: Scan Indicated on CBC? Y/N YES- FLAGS NOTED
== END | disposition home or self-care (01) ==
LOC: LAB 13:41
PROVIDERS: PCP Internal Medicine; Referring Provider Internal Medicine Cardiovascular Disease; Visit Provider Internal Medicine Cardiovascular Disease
DX: D64.9 Anemia, unspecified (principal); I50.30 Unspecified diastolic (congestive) heart failure
CPT/HCPCS: 36415; 80053; 85027

== ENCOUNTER → 2024-08-04 | Outpatient (CLI) | payer MEDICARE, SELFPAY ==
[2024-08-04 17:06] LABS: Absolute Lymphocyte Count 0.83 X10^3/uL (0.83-4.51); Basophil# 0.05 X10^3/uL; Basophil% 0.7 % (0-1); Eosinophil# 0.29 X10^3/uL; Eosinophils% 4.3 % (0-5); Hematocrit 29.5 % (37-47); Hemoglobin 9.2 g/dL (12.0-15.0); Lymphocyte # 0.83 X10^3/ul (0.83-4.51); Lymphocyte % 12.4 % (19-41); Mean Corp Hgb Conc 31.2 g/dL (32-36); Mean Corpuscular Hgb 29.3 pg (27.0-32.0); Mean Corpuscular Volume 93.9 fL (81-99); Mean Platelet Vol. 10.2 fl (6.2-12.0); Monocyte# 0.51 X10^3/uL; Monocyte% 7.6 % (0-10); NRBC Flagged by Analyzer 0 % (0-5); Neutrophil # 4.99 X10^3/uL (2.7-7.7); Neutrophil % 74.7 % (47-70); Platelet Count 204 K/mm3 (150-450); RBC Distribution Width CV 15.6 % (11.6-14.6); RBC Distribution Width SD 53.8 fl (35.1-43.9); Red Blood Count 3.14 M/mm3 (4.2-5.4); White Blood Count 6.7 K/mm3 (4.4-11.0)
[2024-08-04 17:37] LABS: ALB/GLOB Ratio 1.3 RATIO (0.9-2.4); AST(SGOT) 17 U/L (<=31); Alanine Aminotransfer ALT/SGPT 9 U/L (<=34); Albumin, Serum 3.7 g/dL (3.4-4.8); Alkaline Phosphatase 94 U/L (35-104); Anion Gap 14 (5-15); BUN 31 mg/dL (4-19); BUN/Creat Ratio 12.8 RATIO (10-20); Calcium,Total 10.3 mg/dL (7.6-11.0); Carbon Dioxide 24.2 mmol/L (21.0-32.0); Chloride 106 mmol/L (98-108); Creatinine, Serum 2.46 mg/dL (0.70-1.20); EST Glomerular Filtration Rate 20 (>60); Globulin 2.8 g/dL (2.2-4.2); Glucose 85 mg/dL (70-99); Phosphorus 4.5 mg/dL (2.7-4.5); Potassium 3.8 mmol/L (3.3-5.1); Protein, Total 6.5 g/dL (5.9-8.4); Sodium Level 144 mmol/L (133-145); Total Bilirubin 0.31 mg/dL (0.00-1.30)
[2024-08-04 17:45] LABS: FOLATES,SERUM (FOLIC ACID) 9.71 ng/mL (4.60-34.80)
== END | disposition home or self-care (01) ==
LOC: BIMLAB 15:17
PROVIDERS: PCP Internal Medicine; Referring Provider Internal Medicine; Visit Provider Internal Medicine
DX: I10 Essential (primary) hypertension (principal); D64.9 Anemia, unspecified
CPT/HCPCS: 36415; 80053; 82746; 84100; 84439; 84443; 85025

== ENCOUNTER → 2024-10-10 | Outpatient (CLI) | payer MEDICARE, SELFPAY ==
[2024-10-10 15:10] LABS: Hematocrit 30.4 % (37-47); Hemoglobin 9.1 g/dL (12.0-15.0); Immature Granulocytes Count 0.030 X10^3/uL (0.0-0.0); Mean Corp Hgb Conc 29.9 g/dL (32-36); Mean Corpuscular Volume 93.3 fL (81-99); Mean Platelet Vol. 10.3 fl (6.2-12.0); NRBC Flagged by Analyzer 0 % (0-5); Platelet Count 165 K/mm3 (150-450); RBC Distribution Width CV 16.8 % (11.6-14.6); RBC Distribution Width SD 57.1 fl (35.1-43.9); Red Blood Count 3.26 M/mm3 (4.2-5.4); White Blood Count 8.2 K/mm3 (4.4-11.0)
[2024-10-10 16:07] LABS: AST(SGOT) 22 U/L (<=31); Alanine Aminotransfer ALT/SGPT 13 U/L (<=34); Albumin, Serum 3.8 g/dL (3.4-4.8); Alkaline Phosphatase 79 U/L (35-104); Anion Gap 15 (5-15); BUN 44 mg/dL (4-19); BUN/Creat Ratio 18.2 RATIO (10-20); Calcium,Total 10.2 mg/dL (7.6-11.0); Carbon Dioxide 21.7 mmol/L (21.0-32.0); Chloride 106 mmol/L (98-108); Globulin 3.0 g/dL (2.2-4.2); Glucose 161 mg/dL (70-99); Potassium 4.1 mmol/L (3.3-5.1)
== END | disposition home or self-care (01) ==
LOC: BIMLAB 13:39
PROVIDERS: PCP Internal Medicine; Referring Provider Physician Assistant; Visit Provider Physician Assistant
DX: I50.30 Unspecified diastolic (congestive) heart failure (principal); N18.4 Chronic kidney disease, stage 4 (severe)
CPT/HCPCS: 36415; 80053; 85025